=== PATIENT | male | born 1960 | race Caucasian/White ===

== ENCOUNTER 2020-08-28 01:21 | Emergency (ER) | payer MEDICAID, SELFPAY ==
[2020-08-28] VITALS (10 sets, daily range): BP systolic 119–198; BP diastolic 59–110; PULSE 65–78; RESP 14–18; TEMP 36.2–36.7; O2SAT 94–98; BMI 22.7
--- NOTE | 2020-08-28 02:33 | ED.PSYCH ---
HPI - Psych General Chief Complaint: Psychiatric Symptoms Stated Complaint: etoh/si/hi Time Seen by Provider: 08/28/20 02:25 Source: patient Mode of arrival: EMS Limitations: no limitations and other History of Present Illness HPI Narrative: patient comes to the emergency room intoxicated. Patient states he called EMS himself. Patient states it has been 4 years since he initially tried getting a right-sided hip replacement and UMass, and for various reasons his surgery keeps getting postpone. Patient states the pain is unbearable, he recently started drinking alcohol and using cocaine. Patient states he is suicidal with no plan. MD complaint: suicidal ideation and feels depressed Related Data Allergies Allergy/AdvReac Type Severity Reaction Status Date / Time lisinopril [LISINOPRIL] Allergy Unknown SWELLING Unverified 06/06/20 19:45 Review of Systems Review of Systems: Constitutional : Denies fever chills ENT/Mouth : No Hearing loss, No Ear Pain, No Nasal Congestion, No Sinus Pain, No Hoarseness, No sore throat, No Rhinorrhea, No Swallowing Difficulty Eyes: No Eye Pain, No Swelling, No Redness, No Foreign Body, No Discharge, No Vision Changes Cardiovascular : No Chest Pain, No SOB, No Dyspnea on Exertion, No Orthopnea, No Edema, No Palpitations Respiratory : No Cough, No Sputum, No Wheezing, No Smoke Exposure, No Dyspnea Gastrointestinal : No Nausea, No Vomiting, No Diarrhea, No Constipation, No abdominal Pain, No Hematochezia, No Melena Genitourinary : no irregular bleeding, No Dysuria, No Urinary Frequency, No Hematuria, No Urinary Incontinence, No Urgency, No Flank Pain, No Urinary Flow Changes, No Hesitancy Musculoskeletal: patient complaining of chronic right-sided hip pain Skin : No Skin Lesions, No rash Neuro : No Weakness, No Numbness, No Paresthesias, No Loss of Consciousness, No Dizziness, No Headache Psych : No Anxiety/Panic, No Depression, No SI/HI/AH/VH, No Social Issues, Heme/Lymph: No Bruising, No Bleeding,No Lymphadenopathy Endocrine : No Polyuria, No Polydipsia, No Temperature Intolerance PMFSH Past Medical History Medical History (Updated 08/28/20 @ 02:38 by Phoebe Stein MD) Broken hip Depression Hypertension Physical Exam Vital Signs: Vital Signs: Last Vital Signs Temp 97.1 F 08/28/20 01:52 Pulse 68 08/28/20 02:05 Resp 18 08/28/20 01:52 BP 178/91 H 08/28/20 02:05 Pulse Ox 95 08/28/20 01:52 Body Mass Index 22.7 Appearance: Alert. patient is intoxicated, talking to himself Eyes: Pupils equal, round and reactive to light. ENT: Pharynx normal. Neck: Normal inspection. Neck supple. No lymph nodes noted. No crepitus CVS: Normal heart rate and rhythm. Pulses normal. Normal S1 and S2 Respiratory: No respiratory distress. Breath sounds normal. No Wheezing. No rales Abdomen: Soft and nontender. No rigidity. No distention. good BS x4 Skin: Skin warm and dry, complaining of right-sided hip pain with flexion Extremities: No Lacerations. No Rash Neuro: patient intoxicated, does have slurry speech, cranial nerves 2-12 grossly intact MDM - Psych Restraints Face to Face Assessment: Face to Face Assessment: Current Situation: After assessment of the patient, a review of the pertinent medical record and a discussion with nursing staff, I feel the patient requires a restrain intervention. Reaction To: [] Medical Condition: [] Behavioral State: [] Continued Need: [] Discharge Plan Discharge Clinical Impression: Alcohol intoxication, Suicidal ideation
[2020-08-28] MEDS: LORazepam 1 MG TABLET 2 MG PO ×3 (02:47→08:31)
--- NOTE | 2020-08-28 02:48 | PC.NURSE ---
pt medicated with ativan to reduce his bp of 180/102
[2020-08-28 04:47] LABS: Glucose Urine UA 100 MG/DL (NEG); Leukocyte Esterase Urine NEG (NEG); Nitrite Urine NEG (NEG); Specific Gravity - Urine 1.015 (1.005-1.025); Urine Blood TRACE (NEG); Urine Ketones NEG (NEG); Urine Protein TRACE MG/DL (NEG-TRACE)
--- NOTE | 2020-08-28 04:47 | PC.NURSE ---
pt bp still elevated and medicated with ativan. pt alert and oriented x3 very talkative and pleasant with staff.
[2020-08-28 04:48] LABS: Appearance Urine CLEAR; Color Urine STRAW
[2020-08-28 04:54] LABS: RBC Urine 0-2 /HPF (0); Squamous Epithelial Cell Urine TRACE /LPF; WBC Urine 0-2 /HPF (0-4)
[2020-08-28 04:55] LABS: Hyaline Casts Urine 0-2 /LPF; Mucus Urine 1+ /LPF
[2020-08-28 05:15] LABS: Amphetamine Screen Urine Not Detected (Not Detect); Barbiturates, Urine Not Detected (Not Detect); Benzodiazepines Screen Urine Not Detected (Not Detect); Cannabinoid Screen Urine Not Detected (Not Detect); Cocaine Screen Urine POSITIVE (Not Detect); Opiate Screen Urine Not Detected (Not Detect); Phencyclidine Screen Urine Not Detected (Not Detect)
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
--- NOTE | 2020-08-28 08:29 | PC.NURSE ---
pt hypertensive, does not know all of medications. medications filled through [facility] which is not open at this time. this rn consulted with dr tan and new med orders in. pt asymptomatic at this time. remains medically cleared. plan for covid swab and meds.
[2020-08-28] MEDS: amLODIPine Besylate 5 MG TABLET PO (08:31)
--- NOTE | 2020-08-28 08:59 | PC.NURSE ---
pharmacy called and aware of need for med reconciliation
--- NOTE | 2020-08-28 09:00 | PC.NURSE ---
pt resting in bed at this time
--- NOTE | 2020-08-28 09:32 | PC.NURSE ---
bp improved dr tan aware
[2020-08-28 09:33] LABS: COVID-19 Test Negative (Negative); IDNOW Serial# 9DD0AD1C
--- NOTE | 2020-08-28 09:40 | PC.NURSE ---
[facility] at bedside.
--- NOTE | 2020-08-28 09:41 | PC.NURSE ---
pt non compliant with [facility] assessment, not willing to talk
--- NOTE | 2020-08-28 09:52 | PC.NURSE ---
iknan reattempting to speak to patient, successful thus far.
--- NOTE | 2020-08-28 10:01 | PC.NURSE ---
per n patient requesting to leave, denies si/hi. pt is drowsy from ativan.
--- NOTE | 2020-08-28 11:28 | PC.NURSE ---
plan for d,c after lunch
--- NOTE | 2020-08-28 12:22 | PC.NURSE ---
bp elevated again, states dizziness and non med compliant with bp medications for approxc 1 month.
--- NOTE | 2020-08-28 12:30 | PC.NURSE ---
mattie baldwin at bedside for evaluation after elevated bp, complaints of being dizzy.
--- NOTE | 2020-08-28 12:33 | PC.NURSE ---
plan for librium and for patient to awaken more per denny phelps.
[2020-08-28] MEDS: chlordiazePOXIDE HCl 25 MG CAPSULE 50 MG PO (12:39)
--- NOTE | 2020-08-28 13:35 | PC.NURSE ---
pt ate 100% of lunch, back to sleep
--- NOTE | 2020-08-28 16:20 | PC.NURSE ---
Patient in bed resting quiet and calm, no distress reported, CIWA assessed was 0 at 1620, BP 153/81, will continue to monitor.
== END 2020-08-28 17:15 | disposition home or self-care (01) ==
PROVIDERS: Emergency Provider Emergency Medicine
DX: F10.120 Alcohol abuse with intoxication, uncomplicated (principal); R45.851 Suicidal ideations; F32.9 Major depressive disorder, single episode, unspecified; F14.90 Cocaine use, unspecified, uncomplicated; Z20.828 Contact with and (suspected) exposure to other viral communicable diseases; I10 Essential (primary) hypertension
CPT/HCPCS: 80307; 81001; 87635; 99285

== ENCOUNTER 2020-09-06 01:18 | Emergency (ER) | payer MEDICAID, SELFPAY ==
[2020-09-06 01:28] VITALS: BP 180/78; PULSE 77; RESP 18; TEMP 36.6; O2SAT 96; BMI 64.0
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
== END 2020-09-06 03:15 ==
PROVIDERS: Emergency Provider Student in an Organized Health Care Education/Training Program
DX: S01.112A Laceration without foreign body of left eyelid and periocular area, initial encounter (principal); Y00.XXXA Assault by blunt object, initial encounter; H11.32 Conjunctival hemorrhage, left eye; Y93.9 Activity, unspecified; Y92.039 Unspecified place in apartment as the place of occurrence of the external cause; Y99.9 Unspecified external cause status
CPT/HCPCS: 12011; 99283

== ENCOUNTER 2020-12-28 16:46 | Emergency (ER) | payer MEDICAID, SELFPAY ==
[2020-12-28 17:02] VITALS: BP 146/86; PULSE 76; RESP 18; TEMP 36.6; O2SAT 95; BMI 20.7
--- NOTE | 2020-12-28 17:06 | ECG_ITS ---
Test Reason : ETOH Blood Pressure : / mmHG Vent. Rate : 075 BPM Atrial Rate : 075 BPM P-R Int : 130 ms QRS Dur : 102 ms QT Int : 452 ms P-R-T Axes : 057 033 070 degrees QTc Int : 504 ms Sinus rhythm with Premature atrial complexes Possible Left atrial enlargement RSR' or QR pattern in V1 suggests right ventricular conduction delay Nonspecific T wave abnormality Prolonged QT Abnormal ECG When compared with ECG of 01-JUN-2020 11:02, Premature atrial complexes are now Present Nonspecific T wave abnormality now evident in Inferior leads Nonspecific T wave abnormality, worse in Anterior leads QT has lengthened Referred By: Reji Sinha Electronically Signed By:ERROL HUFF
[2020-12-28 17:11] VITALS: BP 146/86; PULSE 76; RESP 18; TEMP 36.6; O2SAT 95
[2020-12-28 17:45] LABS: Amphetamine Screen Urine Not Detected (Not Detect); Barbiturates, Urine Not Detected (Not Detect); Benzodiazepines Screen Urine Not Detected (Not Detect); Cannabinoid Screen Urine Not Detected (Not Detect); Cocaine Screen Urine POSITIVE (Not Detect); Opiate Screen Urine Not Detected (Not Detect); Phencyclidine Screen Urine Not Detected (Not Detect)
[2020-12-28 18:24] LABS: MANUAL DIFF FLAG NO
--- NOTE | 2020-12-28 18:27 | PC.NURSE ---
Pt asleep at current, no signs of distress, RR even and unlabored.
[2020-12-28 18:47] LABS: Basophils Percent Auto 0.5 % (0-2); Eosinophils Absolute Auto 0.2 X10*3/uL (0.0-0.4); Hematocrit 39.8 % (42-52); Hemoglobin 13.6 g/dl (14.0-18.0); Imm Gran Abs Auto 0.01 X10*3/uL (0.00-0.03); Imm Gran Pct Auto 0.2 % (0.0-0.4); Lymphocytes Absolute Auto 1.2 X10*3/uL (1.2-4.9); Lymphocytes Percent Auto 21.7 % (20-40); Mean Corpuscular HGB Conc 34.2 g/dl (31.0-36.0); Mean Corpuscular Hemoglobin 33.7 pg (27.0-33.0); Mean Corpuscular Volume 98.5 fL (80-98); Mean Platelet Volume 8.5 fL (9.4-12.4); Monocytes Absolute Auto 0.4 X10*3/uL (0.1-1.2); Monocytes Percent Auto 6.5 % (2-11); Neutrophils Absolute Auto 3.8 X10*3/uL (2.0-8.3); Neutrophils Percent Auto 67.1 % (45-73); Platelet Count 267 X10*3/uL (160-400); Red Blood Count 4.04 X10*6/uL (4.60-5.80); White Blood Count 5.7 X10*3/uL (4.8-10.8)
[2020-12-28 19:12] LABS: Ethanol 117 mg/dL
[2020-12-28 19:15] LABS: Alanine Aminotransferase 16 U/L (0-40); Albumin Level 4.5 g/dL (3.5-5.0); Alkaline Phosphatase 67 U/L (39-117); Anion Gap 16 (12-20); Aspartate Amino Transferase 28 U/L (5-37); Bilirubin Total 0.5 mg/dL (0.0-1.0); Blood Urea Nitrogen 19 mg/dL (9-16); Carbon Dioxide 26 mmol/L (22-29); Chloride 102 mmol/L (96-108); Creatinine Clr Calc Pharmacy 46.6; Estimated Glomerular Filt Rate 48; Glucose Random 132 mg/dL (60-115); Potassium 3.3 mmol/L (3.3-5.1); Sodium 141 mmol/L (135-145); Total Protein 7.9 g/dL (6.5-8.0)
[2020-12-28 19:38] LABS: COVID-19 Test Negative (Negative); IDNOW Serial# 9DD0AD1C
--- NOTE | 2020-12-28 19:42 | PC.NURSE ---
Patient in bed seems resting, compliant with covid swab/pending result, ETOH level notified to care team, no distress reported, will continue to monitor.
[2020-12-28 20:48] VITALS: BP 115/60; PULSE 84; RESP 20; TEMP 36.1; O2SAT 96
--- NOTE | 2020-12-28 21:04 | ED_ITS ---
HPI - Psych General Chief Complaint: ETOH/Substance Use Stated Complaint: SI/HI Time Seen by Provider: 12/28/20 17:06 Source: patient Mode of arrival: ambulatory Limitations: no limitations History of Present Illness HPI Narrative: Brought in by ambulance for reported HI and agitated drank alcohol use cocaine. Upon arrival offers no complaints. States he is upset that he has to be here Denies SI. Duration: constant History of same: Yes Relieving factors: none Exacerbating factors: none Context: recent alcohol abuse Associated psychiatric symptoms: none Treatments prior to arrival: none Related Data Home Medications Medication Instructions Recorded Confirmed acetaminophen 1,000 mg PO TID 08/28/20 12/28/20 amlodipine 10 mg PO DAILY 08/28/20 12/28/20 buprenorphine-naloxone [Suboxone] 1 film SUBLINGUAL BID 08/28/20 08/28/20 clonidine HCl 0.1 mg PO BID 08/28/20 12/28/20 folic acid 1 mg PO DAILY 08/28/20 08/28/20 gabapentin 600 mg PO TID 08/28/20 12/28/20 levothyroxine 25 mcg PO DAILY 08/28/20 08/28/20 lidocaine [Lidoderm] 1 patch TOPICAL DAILY 08/28/20 08/28/20 naloxone [Narcan] 0.4 mg IM Q2M PRN 08/28/20 08/28/20 thiamine HCl (vitamin B1) 100 mg PO DAILY 08/28/20 08/28/20 Allergies Allergy/AdvReac Type Severity Reaction Status Date / Time lisinopril [LISINOPRIL] Allergy Unknown SWELLING Unverified 06/06/20 19:45 Review of Systems Review of Systems: Constitutional: No Weight loss, No Fever, No Chills, No Night Sweats, No Fatigue, No Malaise ENT/Mouth: No Hearing loss, No Ear Pain, No Nasal Congestion, No Sinus Pain, No Hoarseness, No sore throat, No Rhinorrhea, No Swallowing Difficulty Eyes: No Eye Pain, No Swelling, No Redness, No Foreign Body, No Discharge, No Vision Changes Cardiovascular: No Chest Pain, No SOB, No Dyspnea on Exertion, No Orthopnea, No Edema, No Palpitations Respiratory: No Cough, No Sputum, No Wheezing, No Smoke Exposure, No Dyspnea Gastrointestinal: No Nausea, No Vomiting, No Diarrhea, No Constipation, No abdominal Pain, No Hematochezia, No Melena Genitourinary: no irregular bleeding, No Dysuria, No Urinary Frequency, No Hematuria, No Urinary Incontinence, No Urgency, No Flank Pain, No Urinary Flow Changes, No Hesitancy Musculoskeletal: No joint pain, No Myalgias, No Joint Swelling Skin: No Skin Lesions, No rash Neuro: No Weakness, No Numbness, No Paresthesias, No Loss of Consciousness, No Dizziness, No Headache Psych: No Anxiety/Panic, No Depression, No HI/AH/VH, No Social Issues Heme/Lymph: No Bruising, No Bleeding,No Lymphadenopathy Endocrine: No Polyuria, No Polydipsia, No Temperature Intolerance Yes all other systems are reviewed and are negative [facility] Past Medical History Medical History Broken hip Depression Hypertension Social History Social History Alcohol intake: current Alcohol intake frequency: 3 or more drinks per day Alcohol type: hard liquor Smoking Status: Smoker, status unknown Smoked in Last 30 Days: Yes Use of substances other than those prescribed or required for medical reasons: Yes Substance Use Type: Crack/Cocaine Advance Directives: No Advance Directives Information Provided: No Physical Exam Vital Signs: Vital Signs: Last Vital Signs Temp 97 F 12/28/20 20:48 Pulse 84 12/28/20 20:48 Resp 20 12/28/20 20:48 BP 115/60 12/28/20 20:48 Pulse Ox 96 12/28/20 20:48 Body Mass Index 20.7 Reviewed Const: Other: Atraumatic General: cooperative, healthy appearing and intoxicated appearing; No acute distress Nutritional Appearance: average body habitus Orientation/consciousness: patient oriented x3 HENMT: Head: Yes normal to inspection Ears: hearing grossly normal bilaterally Eyes: General: appearance normal, both eyes and all related structures Visual Nuñez: normal visual nuñez by confrontation Neck: Neck: Yes normal visual inspection, No positive Brudzinski's sign, No positive Kernig's sign and No tender Thyroid: Thyroid normal Chest: Chest palpation & inspection: normal inspection of the chest Resp: Effort & Inspection: normal respiratory effort Auscultation: clear to auscultation bilaterally Cardio: Jugular venous distension: no JVD Rhythm: regular rhythm Heart sounds: S1 normal heart sound present and S2 normal heart sound present GI: Inspection: Yes normal to inspection Palpation (GI): Soft to palpation Percussion: Yes normal to percussion Auscultation: normal bowel sounds : General: Yes no CVA tenderness Back/Spine/Pelvis: Back: no CVA tenderness Skin: General skin exam: no rashes or lesions noted Neuro: General: patient oriented x3 Extrem: General: Yes normal to inspection Course Course Course Narrative: Screening labs and care team evaluation. Offers no other complaints at this time. Reevaluation(s) Reevaluation #1: Clinically sober after being observed for several hours alcohol only 117. He has been calm cooperative. Care team evaluate patient has outpatient services declined any to go to detox from here. Clear for discharge. MDM - Psych Lab Data Result diagrams: 12/28/20 18:17 12/28/20 18:17 Labs: Lab Results 12/28/20 12/28/20 12/28/20 Range/Units 17:19 18:17 18:17 WBC 5.7 (4.8-10.8) X10*3/uL RBC 4.04 L (4.60-5.80) X10*6/uL Hgb 13.6 L (14.0-18.0) g/dl Hct 39.8 L (42-52) % MCV 98.5 H (80-98) fL MCH 33.7 H (27.0-33.0) pg MCHC 34.2 (31.0-36.0) g/dl RDW 12.0 (11.0-16.0) % Plt Count 267 (160-400) X10*3/uL MPV 8.5 L (9.4-12.4) fL Immature Gran % (Auto) 0.2 (0.0-0.4) % Neut % (Auto) 67.1 (45-73) % Lymph % (Auto) 21.7 (20-40) % [place] % (Auto) 6.5 (2-11) % Eos % (Auto) 4.0 (0-4) % Baso % (Auto) 0.5 (0-2) % Lymph # (Auto) 1.2 (1.2-4.9) X10*3/uL [place] # (Auto) 0.4 (0.1-1.2) X10*3/uL Eos # (Auto) 0.2 (0.0-0.4) X10*3/uL Baso # (Auto) 0.0 (0.0-0.2) X10*3/uL Abs Immat Gran (auto) 0.01 (0.00-0.03) X10*3/uL Absolute Neuts (auto) 3.8 (2.0-8.3) X10*3/uL Absolute Nucleated RBC 0.000 (0.0-0.012) X10*3/uL Nucleated RBC % (auto) 0.0 (0.0-0.2) /100WBC Sodium 141 (135-145) mmol/L Potassium 3.3 (3.3-5.1) mmol/L Chloride 102 (96-108) mmol/L Carbon Dioxide 26 (22-29) mmol/L Anion Gap 16 (12-20) BUN 19 H (9-16) mg/dL Creatinine 1.50 H (0.5-1.4) mg/dL Estim Creat Clear Calc 46.6 Estimated GFR 48 Random Glucose 132 H (60-115) mg/dL Calcium 9.0 (8.4-10.2) mg/dL Total Bilirubin 0.5 (0.0-1.0) mg/dL AST 28 (5-37) U/L ALT 16 (0-40) U/L Alkaline Phosphatase 67 (39-117) U/L Total Protein 7.9 (6.5-8.0) g/dL Albumin 4.5 (3.5-5.0) g/dL Urine Opiates Screen Not Detected (Not Detect) Ur Barbiturates Screen Not Detected (Not Detect) Ur Phencyclidine Scrn Not Detected (Not Detect) Ur Amphetamines Screen Not Detected (Not Detect) U Benzodiazepines Scrn Not Detected (Not Detect) Urine Cocaine Screen POSITIVE H (Not Detect) U Marijuana (THC) Screen Not Detected (Not Detect) Ethyl Alcohol mg/dL COVID-19 ([facility]) (Negative) COVID-19 Clin Com 12/28/20 12/28/20 Range/Units 18:17 19:09 WBC (4.8-10.8) X10*3/uL RBC (4.60-5.80) X10*6/uL Hgb (14.0-18.0) g/dl Hct (42-52) % MCV (80-98) fL MCH (27.0-33.0) pg MCHC (31.0-36.0) g/dl RDW (11.0-16.0) % Plt Count (160-400) X10*3/uL MPV (9.4-12.4) fL Immature Gran % (Auto) (0.0-0.4) % Neut % (Auto) (45-73) % Lymph % (Auto) (20-40) % [place] % (Auto) (2-11) % Eos % (Auto) (0-4) % Baso % (Auto) (0-2) % Lymph # (Auto) (1.2-4.9) X10*3/uL [place] # (Auto) (0.1-1.2) X10*3/uL Eos # (Auto) (0.0-0.4) X10*3/uL Baso # (Auto) (0.0-0.2) X10*3/uL Abs Immat Gran (auto) (0.00-0.03) X10*3/uL Absolute Neuts (auto) (2.0-8.3) X10*3/uL Absolute Nucleated RBC (0.0-0.012) X10*3/uL Nucleated RBC % (auto) (0.0-0.2) /100WBC Sodium (135-145) mmol/L Potassium (3.3-5.1) mmol/L Chloride (96-108) mmol/L Carbon Dioxide (22-29) mmol/L Anion Gap (12-20) BUN (9-16) mg/dL Creatinine (0.5-1.4) mg/dL Estim Creat Clear Calc Estimated GFR Random Glucose (60-115) mg/dL Calcium (8.4-10.2) mg/dL Total Bilirubin (0.0-1.0) mg/dL AST (5-37) U/L ALT (0-40) U/L Alkaline Phosphatase (39-117) U/L Total Protein (6.5-8.0) g/dL Albumin (3.5-5.0) g/dL Urine Opiates Screen (Not Detect) Ur Barbiturates Screen (Not Detect) Ur Phencyclidine Scrn (Not Detect) Ur Amphetamines Screen (Not Detect) U Benzodiazepines Scrn (Not Detect) Urine Cocaine Screen (Not Detect) U Marijuana (THC) Screen (Not Detect) Ethyl Alcohol 117 mg/dL COVID-19 ([facility]) Negative (Negative) COVID-19 Clin Com See Note Discharge Plan Discharge Clinical Impression: Alcoholic intoxication Patient Disposition: Home, Self-Care Instructions: Abuse of Alcohol (ED) Additional Instructions: Please stop drinking alcohol and doing drugs please follow-up with her primary care doctor Return if any concerns or symptoms Thank you Prescriptions: No Action clonidine HCl 0.1 mg Tablet 0.1 mg PO BID RF: 0 gabapentin 600 mg Tablet 600 mg PO TID RF: 0 naloxone [Narcan] 0.4 mg/mL Solution 0.4 mg IM Q2M PRN (Reason: Opioid Overdose) RF: 0 thiamine HCl (vitamin B1) 100 mg Tablet 100 mg PO DAILY RF: 0 acetaminophen 500 mg Tablet 1,000 mg PO TID RF: 0 levothyroxine 25 mcg Tablet 25 mcg PO DAILY RF: 0 amlodipine 10 mg Tablet 10 mg PO DAILY RF: 0 lidocaine [Lidoderm] 5 % Adhesive Patch,Medicated 1 patch TOPICAL DAILY RF: 0 folic acid 1 mg Tablet 1 mg PO DAILY RF: 0 buprenorphine-naloxone [Suboxone] 4-1 mg Film 1 film SUBLINGUAL BID RF: 0 Referrals: ED Physician,Generic [Emergency Provider] - 1 week
--- NOTE | 2020-12-28 21:12 | MHC.CARE ---
CARE team support requested to complete a crisis screening for pt who was brought to ED following a wellness check after pt made a comment on the phone with his doctor that triggered her to call PD. This happened yesterday, however PD were unable to find pt at his home because pt went to [place] for the night to meet up with his girls and did cocaine, and then pt was brought to ED this afternoon. Pt endorsed vaguely directed HI on arrival and was otherwise without any behavioral health complaints. Pt's BAL was 117 around 6pm. Pt is known to be abrasive and verbally abusive during ED visits, and pt was at his baseline during this visit. Pt denied wanting to hurt himself, though continued to voice wanting to harm others in a manner that was more suggestive of generalized anger and not active homicidality. Pt asking to be discharged, and it was determined by this racebook writer that there are no immediate safety concerns at this time, as pt is not making directed threats to harm self or other. ED provider in agreement with plan to discharge.
== END 2020-12-28 21:21 | disposition home or self-care (01) ==
PROVIDERS: Nurse Practitioner Primary Care; Emergency Provider Internal Medicine
DX: F10.120 Alcohol abuse with intoxication, uncomplicated (principal); Y90.5 Blood alcohol level of 100-119 mg/100 ml; Z20.822 Contact with and (suspected) exposure to COVID-19; F14.90 Cocaine use, unspecified, uncomplicated; I10 Essential (primary) hypertension
CPT/HCPCS: 36415; 80053; 80307; 80320; 85025; 87635; 93005; 99284

== ENCOUNTER 2021-01-09 23:44 | Emergency (ER) | payer MEDICAID, SELFPAY | END 2021-01-10 01:36 | disposition left against medical advice (07) | PROVIDERS: Emergency Provider Emergency Medicine | DX: Z04.3 Encounter for examination and observation following other accident (principal) ==

== ENCOUNTER 2021-03-09 13:15 | Emergency (ER) | payer MEDICAID, SELFPAY ==
[2021-03-09 14:07] VITALS: BP 150/82; BP 181/84; PULSE 56; PULSE 76; RESP 16; TEMP 36.4; O2SAT 97; BMI 21.4
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
== END 2021-03-09 15:30 | disposition left against medical advice (07) ==
PROVIDERS: Emergency Provider Emergency Medicine
DX: S00.81XA Abrasion of other part of head, initial encounter (principal); Y04.8XXA Assault by other bodily force, initial encounter; Y93.9 Activity, unspecified; Y92.9 Unspecified place or not applicable; Y99.9 Unspecified external cause status
CPT/HCPCS: 99281; 99283

== ENCOUNTER 2021-04-23 05:19 | Emergency (ER) | payer MEDICAID, SELFPAY ==
[2021-04-23 05:31] VITALS: BP 154/87; PULSE 69; RESP 16; TEMP 36.6; O2SAT 96; BMI 21.1
== END 2021-04-23 06:05 | disposition left against medical advice (07) ==
PROVIDERS: Emergency Provider Emergency Medicine
DX: M25.519 Pain in unspecified shoulder (principal)
CPT/HCPCS: 99281; 99282

== ENCOUNTER 2021-05-14 16:56 | Emergency (ER) | payer MEDICAID, SELFPAY ==
[2021-05-14 17:01] VITALS: BP 140/80; BP 147/65; PULSE 77; PULSE 85; RESP 16; TEMP 36.4; O2SAT 98; BMI 20.7
--- NOTE | 2021-05-14 17:34 | PC.NURSE ---
patient was visualized ambulating with steady gait out of his room in the ED stating that he wanted water and did not want to be here. patient had been given water but was not satisfied and stated he was leaving. this rn, charge and pa Scarlett visualized the patient ambulating with steady gait and leaving the ED. Patient appeared to be alert and oriented, was steady on his feet and did not want to wait to see a doctor/provider.
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
== END 2021-05-14 18:01 | disposition left against medical advice (07) ==
PROVIDERS: Emergency Provider Internal Medicine
DX: R53.1 Weakness (principal); M25.562 Pain in left knee; M25.561 Pain in right knee
CPT/HCPCS: 99281; 99283

== ENCOUNTER 2021-09-06 17:11 | Emergency (ER) | payer MEDICAID, SELFPAY ==
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
[2021-09-06 17:29] VITALS: BP 115/77; BP 149/73; PULSE 64; PULSE 65; RESP 16; TEMP 37.1; O2SAT 98; BMI 21.4
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
== END 2021-09-06 19:38 | disposition home or self-care (01) ==
PROVIDERS: Emergency Provider Emergency Medicine
DX: S06.9X9A Unspecified intracranial injury with loss of consciousness of unspecified duration, initial encounter (principal); S01.01XA Laceration without foreign body of scalp, initial encounter; S89.91XA Unspecified injury of right lower leg, initial encounter; I10 Essential (primary) hypertension; Y04.2XXA Assault by strike against or bumped into by another person, initial encounter; Y93.9 Activity, unspecified; Y92.9 Unspecified place or not applicable; Y99.9 Unspecified external cause status
CPT/HCPCS: 12001; 70450; 70486; 72125; 73564; 99283; 99284

== ENCOUNTER 2021-11-27 22:22 | Emergency (ER) | payer MEDICAID, SELFPAY ==
[2021-11-27 22:28] VITALS: BP 127/70; PULSE 71; RESP 18; TEMP 36.4; O2SAT 98; BMI 20.3
[2021-11-27 22:48] LABS: Appearance Urine CLEAR; Color Urine YELLOW; Glucose Urine UA NEG (NEG); Leukocyte Esterase Urine NEG (NEG); Nitrite Urine NEG (NEG); Specific Gravity - Urine <= 1.005 (1.005-1.025); Urine Blood NEG (NEG); Urine Ketones NEG (NEG); Urine Protein NEG (NEG-TRACE)
[2021-11-27 23:03] LABS: COVID-19 Test Negative (Negative); IDNOW Serial# 55D5AD1C
[2021-11-27 23:05] LABS: Amphetamine Screen Urine Not Detected (Not Detect); Barbiturates, Urine Not Detected (Not Detect); Benzodiazepines Screen Urine Not Detected (Not Detect); Cannabinoid Screen Urine Not Detected (Not Detect); Cocaine Screen Urine POSITIVE (Not Detect); Fentanyl, urine Not Detected (Not Detect); Opiate Screen Urine Not Detected (Not Detect); Phencyclidine Screen Urine Not Detected (Not Detect)
[2021-11-27 23:27] LABS: MANUAL DIFF FLAG NO
[2021-11-27 23:28] LABS: Basophils Percent Auto 0.5 % (0-2); Eosinophils Absolute Auto 0.2 X10*3/uL (0.0-0.4); Eosinophils Percent Auto 1.9 % (0-4); Hematocrit 38.3 % (42.0-52.0); Hemoglobin 12.6 g/dl (14.0-18.0); Imm Gran Abs Auto 0.02 X10*3/uL (0.00-0.03); Imm Gran Pct Auto 0.2 % (0.0-0.4); Lymphocytes Absolute Auto 1.6 X10*3/uL (1.2-4.9); Lymphocytes Percent Auto 18.9 % (20-40); Mean Corpuscular HGB Conc 32.9 g/dl (31.0-36.0); Mean Corpuscular Hemoglobin 32.1 pg (27.0-33.0); Mean Corpuscular Volume 97.5 fL (80.0-98.0); Mean Platelet Volume 8.5 fL (9.4-12.4); Monocytes Absolute Auto 0.6 X10*3/uL (0.1-1.2); Monocytes Percent Auto 6.4 % (2-11); Neutrophils Absolute Auto 6.2 x10*3/uL (2.0-8.3); Neutrophils Percent Auto 72.1 % (45-73); Platelet Count 298 X10*3/uL (160-400); Red Blood Count 3.93 X10*6/uL (4.60-5.80); Red Cell Distribution Width 11.8 % (11.0-16.0); White Blood Count 8.5 X10*3/uL (4.8-10.8)
--- NOTE | 2021-11-27 23:28 | ED_ITS ---
HPI - Psych General Chief Complaint: Psychiatric Symptoms Stated Complaint: crisis Time Seen by Provider: 11/27/21 22:31 Source: patient Mode of arrival: ambulatory Limitations: no limitations History of Present Illness HPI Narrative: This is a 61-year-old male presenting to the emergency department via ambulance he is evaluated in the community by in, did not arrive on a Section he is coming in today with suicidal and homicidal ideation. Upon his arrival patient is agitated. He states that he is suicidal with plan to jump off a bridge and homicidal towards people around him. I was not able to obtain a great history from patient as he is agitated. Will try again after patient calms down. No medical complaints that were reported to me by a nurse or EMS. He did not report drugs, alcohol or tobacco use. MD complaint: suicidal ideation and homicidal ideation Onset (ago): day(s) (1) Duration: constant History of same: Yes Relieving factors: none Exacerbating factors: none Associated psychiatric symptoms: none Associated symptoms: denies other symptoms Treatments prior to arrival: none If self harm: admits thoughts of self harm and has plan Related Data Home Medications Medication Instructions Recorded Confirmed acetaminophen 500 mg tablet 1,000 mg PO TID 08/28/20 12/28/20 amlodipine 10 mg tablet 10 mg PO DAILY 08/28/20 12/28/20 buprenorphine 4 mg-naloxone 1 mg 1 film SUBLINGUAL BID 08/28/20 08/28/20 sublingual film (Suboxone) clonidine HCl 0.1 mg tablet 0.1 mg PO BID 08/28/20 12/28/20 folic acid 1 mg tablet 1 mg PO DAILY 08/28/20 11/27/21 gabapentin 600 mg tablet 600 mg PO TID 08/28/20 12/28/20 levothyroxine 25 mcg tablet 25 mcg PO DAILY 08/28/20 08/28/20 lidocaine 5 % topical patch 1 patch TOPICAL DAILY 08/28/20 08/28/20 (Lidoderm) naloxone 0.4 mg/mL injection 0.4 mg IM Q2M PRN 08/28/20 08/28/20 solution thiamine HCl (vitamin B1) 100 mg 100 mg PO DAILY 08/28/20 08/28/20 tablet amlodipine 10 mg tablet 1 tab PO DAILY 11/27/21 11/27/21 atorvastatin 20 mg tablet 1 tab PO DAILY 11/27/21 11/27/21 levothyroxine 25 mcg tablet 1 tab PO DAILY 11/27/21 11/27/21 Allergies Allergy/AdvReac Type Severity Reaction Status Date / Time lisinopril [LISINOPRIL] Allergy Unknown SWELLING Verified 03/09/21 14:13 Review of Systems Review of Systems: Constitutional : No Fever, No Chills ENT/Mouth : No Ear Pain, No Nasal Congestion, No sore throat Eyes: No Eye Pain, No Swelling, No Redness Cardiovascular : No Chest Pain, No SOB Respiratory : No Cough, No Sputum, No Dyspnea Gastrointestinal : No Nausea, No Vomiting, No Diarrhea, No Hematochezia, No Melena Genitourinary : No Dysuria, No Urinary Frequency, No Hematuria Musculoskeletal : No Myalgias Skin : No Skin Lesions, No rash Neuro : No Weakness, No Numbness, No Paresthesias, No Dizziness, No Headache Psych : positive Anxiety, positive Depression, positive SI/HI All other systems reviewed and are negative Yes all other systems are reviewed and are negative [facility] Past Medical History Attestation statement: The following information was validated with the patient. Source: old records reviewed and nursing notes reviewed Medical History Broken hip Depression Hypertension Social History Social History Alcohol intake: current Alcohol intake frequency: 3 or more drinks per day Alcohol type: hard liquor Substance Use Type: Crack/Cocaine Advance Directives: No Physical Exam Vital Signs: Vital Signs: Last Vital Signs Temp 97.5 F 11/27/21 22:28 Pulse 71 11/27/21 22:28 Resp 16 11/28/21 00:35 BP 127/70 11/27/21 22:28 Pulse Ox 98 11/27/21 22:28 BMI result Body Mass Index 20.3 vss Appearance: Alert.? Oriented X3.? No acute distress.? Patient agitated. Head: Normocephalic, atraumatic, no step-offs or deformities Eyes: Pupils equal, round and reactive to light.? ENT: Pharynx normal.? Neck: Normal inspection.? Neck supple.? CVS: Normal heart rate and rhythm.? Pulses normal.? Respiratory: No respiratory distress.? Breath sounds normal.? Abdomen: Soft and nontender.? Skin: Skin warm and dry.? Normal skin color.? Normal skin turgor.? Extremities: No lower extremity edema.? No calf ttp. 5/5 strength to bilateral upper and lower extremities Back: No midline tenderness, no C-spine tenderness, full range of motion, no CVA tenderness bilaterally Neuro: Oriented X 3.? No motor deficit.? No sensory deficit. CN 2-12 intact Course Reevaluation(s) Reevaluation #1: Medical restraints were ordered, Benadryl, Haldol and Ativan as patient was agitated, he was a risk to self and others around him. Patient's CBC appears to be at baseline. Patient noted to have CKD. BUN and creatinine appear to be around his baseline. Urine clean. Urine toxicology positive for cocaine. Ethanol 187. Salicylates and acetaminophen pending. Patient COVID negative. Time: 23:24 Reevaluation #2: At this time patient will be placed in physician observation to allow more time for patient to be evaluated by the behavioral health team. At time observation was started patient, cooperative no acute distress. He is sleeping after his medical restraint. Will continue to monitor. Time: 01:31 MDM - Psych MDM Narrative Medical decision making narrative: 2320 61 yo m presents with SI and HI Upon physical examination patient appears agitated. No focal neuro deficits. Lungs clear regular rate and rhythm. Abdomen soft nontender nondistended. Plan at this time is basic labs, urine. Medical Records Attestation: I reviewed the patient's medical records. Lab Data Attestation: I reviewed the patient's lab results. Result diagrams: 11/27/21 23:02 11/27/21 23:02 Labs: Lab Results 11/27/21 11/27/21 11/27/21 Range/Units 21:40 22:38 22:38 WBC (4.8-10.8) X10*3/uL RBC (4.60-5.80) X10*6/uL Hgb (14.0-18.0) g/dl Hct (42.0-52.0) % MCV (80.0-98.0) fL MCH (27.0-33.0) pg MCHC (31.0-36.0) g/dl RDW (11.0-16.0) % Plt Count (160-400) X10*3/uL MPV (9.4-12.4) fL Immature Gran % (Auto) (0.0-0.4) % Neut % (Auto) (45-73) % Lymph % (Auto) (20-40) % [place] % (Auto) (2-11) % Eos % (Auto) (0-4) % Baso % (Auto) (0-2) % Lymph # (Auto) (1.2-4.9) X10*3/uL [place] # (Auto) (0.1-1.2) X10*3/uL Eos # (Auto) (0.0-0.4) X10*3/uL Baso # (Auto) (0.0-0.2) X10*3/uL Abs Immat Gran (auto) (0.00-0.03) X10*3/uL Absolute Neuts (auto) (2.0-8.3) x10*3/uL Absolute Nucleated RBC (0.0-0.012) X10*3/uL Nucleated RBC % (auto) (0.0-0.2) /100WBC Sodium (135-145) mmol/L Potassium (3.3-5.1) mmol/L Chloride (96-108) mmol/L Carbon Dioxide (22-29) mmol/L Anion Gap (12-20) BUN (9-16) mg/dL Creatinine (0.5-1.4) mg/dL Estim Creat Clear Calc Estimated GFR Random Glucose (60-115) mg/dL Calcium (8.4-10.2) mg/dL Magnesium (1.6-2.6) mg/dL Total Bilirubin (0.0-1.0) mg/dL Direct Bilirubin (0.0-0.5) mg/dL AST (5-37) U/L ALT (0-40) U/L Alkaline Phosphatase (39-117) U/L Total Protein (6.5-8.0) g/dL Albumin (3.5-5.0) g/dL Urine Color YELLOW Urine Appearance CLEAR Urine pH 6.0 (5.0-8.0) Ur Specific [place] <= 1.005 (1.005-1.025) Urine Protein NEG (NEG-TRACE) MG/DL Urine Glucose (UA) NEG (NEG) MG/DL Urine Ketones NEG (NEG) MG/DL Urine Blood NEG (NEG) Urine Nitrite NEG (NEG) Ur Leukocyte Esterase NEG (NEG) Urine Opiates Screen Not Detected (Not Detect) Urine Fentanyl Screen Not Detected (Not Detect) Ur Barbiturates Screen Not Detected (Not Detect) Ur Phencyclidine Scrn Not Detected (Not Detect) Ur Amphetamines Screen Not Detected (Not Detect) U Benzodiazepines Scrn Not Detected (Not Detect) Urine Cocaine Screen POSITIVE H (Not Detect) U Marijuana (THC) Screen Not Detected (Not Detect) Ethyl Alcohol mg/dL COVID-19 ([facility]) Negative (Negative) COVID-19 Clin Com See Note 11/27/21 11/27/21 11/27/21 Range/Units 23:02 23:02 23:02 WBC 8.5 (4.8-10.8) X10*3/uL RBC 3.93 L (4.60-5.80) X10*6/uL Hgb 12.6 L (14.0-18.0) g/dl Hct 38.3 L (42.0-52.0) % MCV 97.5 (80.0-98.0) fL MCH 32.1 (27.0-33.0) pg MCHC 32.9 (31.0-36.0) g/dl RDW 11.8 (11.0-16.0) % Plt Count 298 (160-400) X10*3/uL MPV 8.5 L (9.4-12.4) fL Immature Gran % (Auto) 0.2 (0.0-0.4) % Neut % (Auto) 72.1 (45-73) % Lymph % (Auto) 18.9 L (20-40) % [place] % (Auto) 6.4 (2-11) % Eos % (Auto) 1.9 (0-4) % Baso % (Auto) 0.5 (0-2) % Lymph # (Auto) 1.6 (1.2-4.9) X10*3/uL [place] # (Auto) 0.6 (0.1-1.2) X10*3/uL Eos # (Auto) 0.2 (0.0-0.4) X10*3/uL Baso # (Auto) 0.0 (0.0-0.2) X10*3/uL Abs Immat Gran (auto) 0.02 (0.00-0.03) X10*3/uL Absolute Neuts (auto) 6.2 (2.0-8.3) x10*3/uL Absolute Nucleated RBC 0.000 (0.0-0.012) X10*3/uL Nucleated RBC % (auto) 0.0 (0.0-0.2) /100WBC Sodium 136 (135-145) mmol/L Potassium 3.8 (3.3-5.1) mmol/L Chloride 98 (96-108) mmol/L Carbon Dioxide 28 (22-29) mmol/L Anion Gap 14 (12-20) BUN 17 H (9-16) mg/dL Creatinine 1.71 H (0.5-1.4) mg/dL Estim Creat Clear Calc 40.8 Estimated GFR 41 Random Glucose 89 (60-115) mg/dL Calcium 9.8 D (8.4-10.2) mg/dL Magnesium 2.3 (1.6-2.6) mg/dL Total Bilirubin 0.4 (0.0-1.0) mg/dL Direct Bilirubin < 0.2 (0.0-0.5) mg/dL AST 15 D (5-37) U/L ALT 11 (0-40) U/L Alkaline Phosphatase 88 D (39-117) U/L Total Protein 8.1 H (6.5-8.0) g/dL Albumin 4.6 (3.5-5.0) g/dL Urine Color Urine Appearance Urine pH (5.0-8.0) Ur Specific [place] (1.005-1.025) Urine Protein (NEG-TRACE) MG/DL Urine Glucose (UA) (NEG) MG/DL Urine Ketones (NEG) MG/DL Urine Blood (NEG) Urine Nitrite (NEG) Ur Leukocyte Esterase (NEG) Urine Opiates Screen (Not Detect) Urine Fentanyl Screen (Not Detect) Ur Barbiturates Screen (Not Detect) Ur Phencyclidine Scrn (Not Detect) Ur Amphetamines Screen (Not Detect) U Benzodiazepines Scrn (Not Detect) Urine Cocaine Screen (Not Detect) U Marijuana (THC) Screen (Not Detect) Ethyl Alcohol 187 mg/dL COVID-19 ([facility]) (Negative) COVID-19 Clin Com Critical Care Time Critical Care Time Critical Care Time: No Discharge Plan Discharge Clinical Impression: Depression, Suicidal ideation, Acute anxiety, Homicidal ideations Patient Disposition: Still a Patient Prescriptions: No Action clonidine HCl 0.1 mg Tablet 0.1 mg PO BID 0RF gabapentin 600 mg Tablet 600 mg PO TID 0RF naloxone [Narcan] 0.4 mg/mL Solution 0.4 mg IM Q2M PRN (Reason: Opioid Overdose) 0RF thiamine HCl (vitamin B1) 100 mg Tablet 100 mg PO DAILY 0RF acetaminophen 500 mg Tablet 1,000 mg PO TID 0RF levothyroxine 25 mcg Tablet 25 mcg PO DAILY 0RF amlodipine 10 mg Tablet 10 mg PO DAILY 0RF lidocaine [Lidoderm] 5 % Adhesive Patch,Medicated 1 patch TOPICAL DAILY 0RF folic acid 1 mg Tablet 1 mg PO DAILY 0RF buprenorphine-naloxone [Suboxone] 4-1 mg Film 1 film SUBLINGUAL BID 0RF atorvastatin 20 mg tablet 1 tab PO DAILY 0RF levothyroxine 25 mcg tablet 1 tab PO DAILY 0RF amlodipine 10 mg tablet 1 tab PO DAILY 0RF
[2021-11-27 23:35] VITALS: RESP 16
[2021-11-27] MEDS: Haloperidol Lactate 5 MG/ML VIAL IM (23:35)
[2021-11-27] MEDS: LORazepam 2 MG/ML VIAL IM (23:35)
[2021-11-27] MEDS: diphenhydrAMINE HCL 50 MG/ML VIAL IM (23:35)
[2021-11-27 23:40] LABS: Ethanol 187 mg/dL
[2021-11-27 23:45] LABS: Alanine Aminotransferase 11 U/L (0-40); Albumin Level 4.6 g/dL (3.5-5.0); Alkaline Phosphatase 88 U/L (39-117); Anion Gap 14 (12-20); Aspartate Amino Transferase 15 U/L (5-37); Bilirubin Direct < 0.2 mg/dL (0.0-0.5); Bilirubin Total 0.4 mg/dL (0.0-1.0); Blood Urea Nitrogen 17 mg/dL (9-16); Calcium 9.8 mg/dL (8.4-10.2); Carbon Dioxide 28 mmol/L (22-29); Chloride 98 mmol/L (96-108); Creatinine Clr Calc Pharmacy 40.8; Estimated Glomerular Filt Rate 41; Glucose Random 89 mg/dL (60-115); Magnesium 2.3 mg/dL (1.6-2.6); Potassium 3.8 mmol/L (3.3-5.1); Sodium 136 mmol/L (135-145); Total Protein 8.1 g/dL (6.5-8.0)
[2021-11-27 23:50] VITALS: RESP 16
--- NOTE | 2021-11-28 00:01 | PC.NURSE ---
Patient severely agitated, demanding immediate discharge, slamming door, pushing exit door, slapping wall, making threatening statement to staff member, provider notified/ordered Ativan 2 mg IM, 5 mg Haldol 5mg IM, and Benadryl 50 mg IM/administered as ordered at 2335, patient compliant, pending effect, patient is on 1:1 for safety observation, will continue to monitor.
[2021-11-28 00:05] VITALS: RESP 17
[2021-11-28 00:20] VITALS: RESP 16
[2021-11-28 00:35] VITALS: RESP 16
[2021-11-28 01:38] LABS: Acetaminophen LAB < 1 mcg/mL (<30); Salicylate < 5.0 mg/dL (15-30)
--- NOTE | 2021-11-28 06:10 | PC.NURSE ---
Patient slept through the night, no distress observed/reported, effective medication restraint, behavior concerning prior restraint but appropriate post restraint, BHN referral completed/confirmed, pending evaluation in the morning, will continue to monitor.
--- NOTE | 2021-11-28 08:09 | PHA.MEDREC ---
Pharmacy Consult ? Medication Reconciliation Pharmacy has reviewed the medication reconciliation completed by Mendel.
[2021-11-28] MEDS: amLODIPine Besylate 10 MG TABLET PO (10:31)
[2021-11-28] MEDS: Nicotine 21 MG PATCH.TD24 TRANSDERMA (10:31)
[2021-11-28] MEDS: cloNIDine HCL 0.1 MG TABLET PO (10:31)
[2021-11-28] MEDS: Thiamine HCL 100 MG TABLET PO (10:31)
[2021-11-28] MEDS: Buprenorphine/Naloxone 8/2 mg FILM 1 FILM SUBLINGUAL (10:31)
[2021-11-28] MEDS: Folic Acid 1 MG TABLET PO (10:32)
[2021-11-28] MEDS: Atorvastatin Calcium 20 MG TABLET PO (10:32)
[2021-11-28] MEDS: Levothyroxine Sodium 25 MCG TABLET PO (10:32)
[2021-11-28] MEDS: Gabapentin 400 MG CAPSULE 800 MG PO (10:32)
[2021-11-28 10:39] VITALS: BP 142/78; PULSE 73
[2021-11-28] MEDS: Acamprosate Calcium 333 MG TABLET.DR 666 MG PO (10:57)
== END 2021-11-28 11:15 | disposition home or self-care (01) ==
PROVIDERS: Physician Assistant; Emergency Provider Emergency Medicine Emergency Medical Services
DX: F32.9 Major depressive disorder, single episode, unspecified (principal); F41.9 Anxiety disorder, unspecified; R45.851 Suicidal ideations; R45.850 Homicidal ideations; I12.9 Hypertensive chronic kidney disease with stage 1 through stage 4 chronic kidney disease, or unspecified chronic kidney disease; N18.9 Chronic kidney disease, unspecified; Z79.899 Other long term (current) drug therapy; Z20.822 Contact with and (suspected) exposure to COVID-19
CPT/HCPCS: 36415; 80053; 80143; 80179; 80307; 81003; 82077; 82248; 83735; 85025; 87635; 96372; 99284; 99285; J1200; J2060

== ENCOUNTER 2022-07-05 19:06 | Emergency (ER) | payer MEDICAID, SELFPAY ==
--- NOTE | ~2022-07-05 | CT_ITS ---
EXAMINATION: NONCONTRAST HEAD CT NONCONTRAST CERVICAL SPINE CT INDICATION INFORMATION: Fall. Head strike. COMPARISON: 09/06/2021 TECHNIQUE: Separate noncontrast CT examinations of the head and cervical spine were performed. Coronal and sagittal images were created for each examination at the technologist workstation. This CT examination was performed using dose optimization techniques as appropriate, variously including the following: *Automated exposure control *Adjustment of mA and/or kV according to patient size (this includes techniques or standardized protocols for targeted exams where dose is matched to indication/reason for exam; i.e. extremities or head) *Use of iterative reconstruction technique DLP: 965 mGy-cm FINDINGS: Head: There is no evidence of acute intracranial hemorrhage or territorial infarction. No abnormal mass effect or midline shift is seen. Dawson to white matter differentiation is well preserved. No extra-axial fluid collections are identified. No hydrocephalus. No significant volume loss. Patchy periventricular and deep white matter hypoattenuation is consistent with moderate small vessel ischemic changes. No acute osseous or soft tissue abnormality. The mastoid air cells and visualized portions of the paranasal sinuses are well aerated. Cervical spine: There is anatomic alignment of the vertebral bodies and posterior elements. The atlantoaxial and atlantooccipital articulations are intact. Vertebral body heights maintained. Mild loss of disc space height at C5-C6 and C6-C7. Endplate osteophytes present throughout the cervical spine. Facet arthropathy present throughout the cervical spine. No evidence of acute fracture. No prevertebral soft tissue swelling. [place] bilateral carotid bulb calcifications. Visualized portions of the lung apices are unremarkable. The thyroid gland is unremarkable. CT/CT cervical spine wo IV con IMPRESSION: No acute intracranial pathology. No cervical spine fracture or traumatic malalignment.
[2022-07-05 19:38] LABS: Appearance Urine Clear; Color Urine Yellow; Glucose Urine UA 250 mg/dL (Negative); Leukocyte Esterase Urine Negative (Negative); Nitrite Urine Negative (Negative); PH 5.5 (5.0-9.0); Specific Gravity - Urine 1.015 (1.005-1.025); Urine Blood Negative (Negative); Urine Ketones Negative (Negative); Urine Protein Trace mg/dL (Neg-Trace)
[2022-07-05 19:47] VITALS: BP 145/77; PULSE 64; RESP 17; TEMP 36.3; O2SAT 97; BMI 23.6
[2022-07-05 19:51] LABS: Amphetamine Screen Urine Not Detected (Not Detect); Barbiturates, Urine Not Detected (Not Detect); Benzodiazepines Screen Urine Not Detected (Not Detect); Cannabinoid Screen Urine Not Detected (Not Detect); Cocaine Screen Urine POSITIVE (Not Detect); Fentanyl, urine Not Detected (Not Detect); Opiate Screen Urine Not Detected (Not Detect); Phencyclidine Screen Urine Not Detected (Not Detect)
--- NOTE | 2022-07-05 19:52 | PC.NURSE ---
Patient came via ambulance to room 1 after he was C/O increase anxiety, SI no plan, increase depression. At time he is quiet in his room , cooperative.Will continue to monitor.
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
[2022-07-05 20:11] LABS: COVID-19 Test Negative (Negative)
--- OUTSIDE RECORDS SUMMARY | 2022-07-05 20:12 | XMS_ITS | Continuity of Care Document ---
:1960 Author Organization [facility] Address [address] [place] [address]- Care Team Providers Name Role Phone Brielle Eid MD Primary Care Physician [phone] [id number] Date(s): 07/08/21 - 08/13/[address] [address] Attending Physician: Aaron Zarate MD Admitting Physician: Aaron Zarate MD Referring Physician: Aaron Zarate MD Allergies, Adverse Reactions, Alerts Substance Reaction Severity Status amoxicillin Active lisinopril Active KlonoPIN Active Medications amLODIPine 2.5 mg oral tablet 5 mg, By Mouth, Daily, # 30 tablet, Refills 0, Tot. Refills 0, Maintenance, 10/23/17 12:32:02, [facility] Electronically, [id number], [facility] Start Date: 10/23/17 Stop Date: 11/22/17 Status: Orderedbuprenorphine-naloxone 4 mg-1 mg sublingual film 1 each, Sublingual, 3 times a day, # 3 film, 0 Refills, Maintenance, 12/06/17 11:44:52, Film Start Date: 12/06/17 Stop Date: 12/07/17 Status: Orderedlactobacillus acidophilus oral tablet 2 tablet, By Mouth, Daily, # 60 tablet, 0 Refills, Maintenance, 04/29/18 16:58:53 EDT Start Date: 04/29/18 Status: OrderedLexapro 10 mg oral tablet = 10 mg, By Mouth, Daily, # 30 tablet, 0 Refills, Maintenance, 10/23/17 12:31:35, Tablet Start Date: 10/23/17 Stop Date: 11/22/17 Status: OrderedNeurontin 600 mg oral tablet 1 tablet = 600 mg, By Mouth, 3 times a day, # 42 tablet, 1 Refills, Maintenance, 12/06/17 11:46:33, Tablet Start Date: 12/06/17 Stop Date: 01/03/18 Status: OrderedSuboxone 4 mg-1 mg sublingual film Sublingual, Daily, 0 Refills, Maintenance, 03/06/19 15:35:42 EDT Start Date: 03/06/19 Status: OrderedtraZODone 100 mg oral tablet 100 mg, 1, tablet, By Mouth, Daily at bedtime, # 14 tablet, Refills 1, Tot. 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 Social History Social History Type Response Smoking Status 10 or more cigarettes (1/2 p ack or more)/day in last 30 days entered on: 03/06/19 Sex
--- OUTSIDE RECORDS SUMMARY | 2022-07-05 20:12 | XMS_ITS | Continuity of Care Document ---
:1960 Author Organization [facility] Address [address] [place] [address]- Care Team Providers Name Role Phone Nathan Rosen MD Primary Care Physician Encounter [facility] Date(s): 09/17/21 - 10/23/[address] [address] Attending Physician: Nathan Rosen MD Admitting Physician: Nathan Rosen MD Referring Physician: Nathan Rosen MD Allergies, Adverse Reactions, Alerts Substance Reaction Severity Status amoxicillin Active lisinopril Active KlonoPIN Active Medications amLODIPine 2.5 mg oral tablet 5 mg, By Mouth, Daily, # 30 tablet, Refills 0, Tot. Refills 0, Maintenance, 10/23/17 12:32:02, [facility] Electronically, [id number], [facility] Start Date: 10/23/17 Stop Date: [...] 1Patient NOS x 2 to scheduled appts.-- [id number] did not keep 3 scheduled appts.-- Closed. Social History Social History Type Response Smoking Status 10 or more cigarettes (1/2 p ack or more)/day in last 30 days entered on: 03/06/19 Sex
--- OUTSIDE RECORDS SUMMARY | 2022-07-05 20:12 | XMS_ITS | Continuity of Care Document ---
:1960 Author Organization [facility] Address [address] [place] [address]- Care Team Providers Name Role Phone Brielle Eid MD Primary Care Physician Encounter [facility] Date(s): 01/08/21 - 02/13/21 [facility] [address] [address]- Attending Physician: Shalini Allen MD Admitting Physician: Shalini Allen MD Allergies, Adverse Reactions, Alerts Substance Reaction Severity Status amoxicillin Active lisinopril Active KlonoPIN Active Medications amLODIPine 2.5 mg oral tablet 5 mg, By Mouth, Daily, # 30 tablet, Refills 0, Tot. Refills 0, Maintenance, 10/23/17 12:32:02, 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 Social History Social History Type Response Smoking Status 10 or more cigarettes (1/2 p ack or more)/day in last 30 days entered on: 03/06/19 Sex
--- OUTSIDE RECORDS SUMMARY | 2022-07-05 20:12 | XMS_ITS | Continuity of Care Document ---
:1960 Author Organization [facility] Address [address] [place] [address]- Care Team Providers Name Role Phone Brielle Eid MD Primary Care Physician [phone] [id number] Date(s): 02/12/21 - 03/20/21 [facility] [address] [address] Attending Physician: Shalini Allen MD Admitting Physician: Shalini Allen MD Allergies, Adverse Reactions, Alerts Substance Reaction Severity Status amoxicillin Active lisinopril Active KlonoPIN Active Medications amLODIPine 2.5 mg oral tablet 5 mg, By Mouth, Daily, # 30 tablet, Refills 0, Tot. Refills 0, Maintenance, 10/23/17 12:32:02, [facility] Electronically, [id number], [facility] Start Date: 10/23/17 Stop Date: [...] 1Patient NOS x 2 to scheduled appts.-- [id number] did not keep 3 scheduled appts.-- Closed. Social History Social History Type Response Smoking Status 10 or more cigarettes (1/2 p ack or more)/day in last 30 days entered on: 03/06/19 Sex
--- OUTSIDE RECORDS SUMMARY | 2022-07-05 20:12 | XMS_ITS | Continuity of Care Document ---
:1960 Author Organization [facility] Address [address] [place] [address]- Care Team Providers Name Role Phone Brielle Eid MD Primary Care Physician En[facility] [id number] Date(s): 07/14/21 - 08/13/[address] [address] Attending Physician: AdmJose J maharaj Admitting Physician: Admtr, Ar8 Referring Physician: Admtr, Ar8 Allergies, Adverse Reactions, Alerts Substance Reaction Severity Status amoxicillin Active lisinopril Active KlonoPIN Active Medications amLODIPine 2.5 mg oral tablet 5 mg, By Mouth, Daily, # 30 tablet, Refills 0, Tot. Refills 0, Maintenance, 10/23/17 12:32:02, [facility] Electronically, [id number], [facility] Start Date: 10/23/17 Stop [...] 1Patient NOS x 2 to scheduled appts.-- [id number] did not keep 3 scheduled appts.-- Closed. Social History Social History Type Response Smoking Status 10 or more cigarettes (1/2 p ack or more)/day in last 30 days entered on: 03/06/19 Sex
--- OUTSIDE RECORDS SUMMARY | 2022-07-05 20:12 | XMS_ITS | Continuity of Care Document ---
:1960 Author Organization [facility] Address [address] [place] [address]- Care Team Providers Name Role Phone Brielle Eid MD Primary Care Physician Encounter [facility] Date(s): 04/10/20 - 05/16/20 [facility] [address] [address] [facility] Attending Physician: Shalini Allen MD Admitting Physician: Shalini Allen MD Referring Physician: Nathan Rosen MD Allergies, Adverse Reactions, Alerts Substance Reaction Severity Status amoxicillin Active lisinopril Active KlonoPIN Active Medications amLODIPine 2.5 mg oral tablet 5 mg, By Mouth, Daily, # 30 tablet, Refills 0, Tot. Refills 0, Maintenance, 10/23/17 12:32:02, [facility] Electronically, [id number], [facility] Start Date: 10/23/17 Stop Date: 11/22/17 [...] Date: 12/06/17 Stop Date: 01/17/18 Status: Ordered Social History Social History Type Response Smoking Status 10 or more cigarettes (1/2 p ack or more)/day in last 30 days entered on: 03/06/19 Sex
--- OUTSIDE RECORDS SUMMARY | 2022-07-05 20:12 | XMS_ITS | Continuity of Care Document ---
:1960 Author Organization [facility] Address [address] [place] [address]- Care Team Providers Name Role Phone Brielle Eid MD Primary Care Physician [phone] Encounter [facility] Date(s): 02/18/21 - 03/20/21 [facility] [address] [address]- Attending Physician: AdmJose J maharaj Admitting Physician: Admtr, Jose J Referring Physician: Admtr, Ar8 Allergies, Adverse Reactions, Alerts Substance Reaction Severity Status amoxicillin Active lisinopril Active KlonoPIN Active Medications amLODIPine 2.5 mg oral tablet 5 mg, By Mouth, Daily, # 30 tablet, Refills 0, Tot. Refills 0, Maintenance, 10/23/17 12:32:02, [facility] Electronically, [id number], [facility] 3 Start Date: 10/23/17 Stop Date: 11/22/17 [...] 1Patient NOS x 2 to scheduled appts.-- [id number] did not keep 3 scheduled appts.-- Closed. Social History Social History Type Response Smoking Status 10 or more cigarettes (1/2 p ack or more)/day in last 30 days entered on: 03/06/19 Sex
--- OUTSIDE RECORDS SUMMARY | 2022-07-05 20:12 | XMS_ITS ---
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 Active 6223914 03 unspecified, bilateral Problem Hyperlipidemia, E78.5 Active 5582 2004 unspecified Problem Major depressive F33.9 Active 663 04106 disorder, recurrent, unspecified Problem Cardiac murmur, R01.1 Active 2689 05345 unspecified Problem Hypothyroidism, E03.9 Active 4093 0008 unspecified Problem Opioid abuse, F11.10 Active 080723 1 uncomplicated Problem Renal agenesis, Q60.0 Active 2049 28647 unilateral Problem Anxiety disorder, F41.9 Active 19 4650875 unspecified Problem Unspecified cataract H26.9 Active 716679708 Problem Unspecified fracture S62.92XA Active 431715081 of left wrist and hand, initial encounter for closed fracture Problem Alcohol abuse, F10.10 Active 21749 005 uncomplicated Problem Chronic kidney N18.3 Active 79275 4002 disease, stage 3 (moderate) Problem Body mass index Z68.20 Active 4127 67490 [BMI] 20.0-20.9, adult Problem Chronic pain G89.4 Active 4109448 06 syndrome Problem Nicotine dependence, F17.210 Active 100276669 cigarettes, uncomplicated Problem Opioid dependence, F11.20 Active 7 7407654 uncomplicated Problem Insomnia, G47.00 Active 479180631 unspecified Problem Ischemia and N28.0 Active 1825989 4 infarction of kidney Problem Essential (primary) I10 Active 34988473 hypertension Problem Other nonspecific R91.8 Active 27 8369985 abnormal finding of lung field Problem Coronary I25.84 Active 451876170 atherosclerosis due to calcified coronary lesion Problem Aortic aneurysm of I71.9 Active 6 2559558 unspecified site, without rupture Problem 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 Active 77897474 ALLERGIES Substance Reaction Event Type Date Status lisinopril angioedema Drug Allergy Jun, Active amoxicillin Hives, pruritis, erythema Drug Allergy Jun, Ac tive ENCOUNTERS Encounter Location Date Diagnosis [address] May, [place], [place] [id number] [address] May, [place], [place] [id number] [address] Apr, [place], [place] [id number] [address] Apr, Encounter for screening for [facility], infectious a nd parasitic [place] [id number] diseases, unspec ified Z11.9 ; Pain in left arm M79.602 ; Contusion of tho rax, unspecified, ini tial encounter S20.20XA ; Essen tial (primary) hypertension I10 ; Nicotine dependence, ciga rettes, uncomplicated F1 7.210 ; Alcohol abuse, u ncomplicated F10.10 ; Opioid dependence, uncomplicated F1 1.20 and Chronic kidney d isease, stage 3 (moderate) N18 .[address] Apr, [place], [place] [id number] [address] Apr, Services for [place] [id number] [address] Apr, Services for [place], [place] [id number] [address] Apr, Essential (pr imary) [facility], hypertension I10 [place] [id number] [facility] Services for [address] [place] [address] Mar, Chronic p ain syndrome G89.4 [place] [id number] [address] Mar, [place], [place] [id number] [facility] for [address] [place] [address] Feb, [place] [id number] [address] Feb, Essential (pr imary) [facility], hypertension I10 [place] [id number] [address] January, [place], [place] [id number] [address] January, Essential (pr imary) [facility], hypertension I10 ; [place] [id number] Osteoarthritis o f hip, unspecified M16. 9 ; Hyperlipidemia, unspecified E78.5 ; Opioid a buse, uncomplicated F1 1.10 ; Opioid dependence, unco mplicated F11.20 ; Immuniz ation not carried out juan use of patient decision for uns pecified reason Z28.20 an d Nicotine dependence, ciga rettes, uncomplicated F1 7.[address] Dec, [place], [place] [id number] [address] 15 Oct, 2021 Encounter for screening for [facility], COVID-19 Z11 .52 ; Abnormal NM [id number] weight loss R63. 4 ; Bursitis of right shoulde r M75.51 ; Nicotine depende nce, cigarettes, unco mplicated F17.210 ; Osteoa rthritis of hip, unspecified M16.9 and Alcohol abuse, u ncomplicated F10.[address] Oct, Essential (pr imary) [facility], hypertension I10 ; [place] [id number] Hypothyroidism, unspecified E03.9 ; Chronic pain syndrome G89.4 ; Opioid a buse, uncomplicated F1 1.10 ; Hyperlipidemia, unspecified E78.5 ; Alcohol abuse, uncomplicated F1 0.10 and Nicotine depende nce, cigarettes, unco mplicated F17.[address] Aug, [place], [place] [id number] [address] Aug, [place], [place] [id number] [address] Aug, [place], [place] [id number] [address] Aug, [place], [place] [id number] [address] Aug, Cardiac murmu r, unspecified [facility], R01.1 ; Esse ntial (primary) [place] [id number] hypertension I10 ; Hypothyroidism, unspecified E03.9 ; Osteoart hritis of hip, unspecified M16. 9 and Nicotine dependence, ciga rettes, uncomplicated F1 7.[address] Aug, Opioid abuse, uncomplicated [facility], F11.10 [place] [id number] [address] Aug, [place], [place] [id number] [address] Jul, Essential (pr imary) [facility], hypertension I10 [place] [id number] [address] Jun, [place], [place] [id number] [address] Jun, Encounter for screening for [facility], infectious a nd parasitic [place] [id number] diseases, unspec ified Z11.9 ; Osteoarthritis o f hip, unspecified M16. 9 ; Opioid abuse, uncomplic ated F11.10 ; Chronic pain syn drome G89.4 ; Nicotine depende nce, cigarettes, unco mplicated F17.210 ; Essent ial (primary) hypertension I10 ; Homelessness Z59 .0 ; Alcohol abuse, uncomplic ated F10.10 and Chronic kidn ey disease, stage 3 (moderat e) N18.3 [facility] for [address] [place] [address] Jun, the [place] [id number] Outreach [address] [place] [address] May, [place] [id number] [address] May, [place], [place] [id number] Outreach [address] [place] [address] May, [place], [place] [id number] [address] 13 May, 2021 [place], [place] [id number] [address] May, Nicotine depe ndence, [facility], cigarettes, uncomplicated [place] [id number] F17.210 ; Alcoho l abuse, uncomplicated F1 0.10 ; Hypothyroidism, unspecified E03.9 and Essent ial (primary) hypertension I10 [address] Apr, [place], [place] [id number] [address] Apr, [place], [place] [id number] [address] Apr, [place], [place] [id number] [address] Mar, Nicotine depe ndence, [facility], cigarettes, uncomplicated [place] [id number] F17.[address] 15 Mar, 2021 Osteoarthriti s of hip, [facility], unspecified M16.9 ; [place] [id number] Unspecified inju ry of thorax, initial encounte r S29.9XXA ; Nicotine depende nce, cigarettes, unco mplicated F17.210 ; Major depressive disorder, recurr ent, unspecified F33. 9 ; Chronic pain syndrome G8 9.4 ; Opioid abuse, uncomplic ated F11.10 ; Alcohol abuse, u ncomplicated F10.10 ; Hyperli pidemia, unspecified E78. 5 ; Hypothyroidism, unspecified E03.9 and Essent ial (primary) hypertension I10 [address] Feb, [place], [place] [id number] [address] January, Osteoarthriti s of hip, [facility], unspecified M16.9 ; Essential [place] [id number] (primary) hypert ension I10 ; Alcohol abuse wi th intoxication, un complicated F10.120 ; Opioid abuse, uncomplicated F1 1.10 and Hypothyroidism, unspecified E03.[address] Dec, [place], [place] [id number] [address] Dec, [place], [place] [id number] [facility] for [address] [place] [address] Nov, 2020 [place], [place] [id number] [facility] for [address] [place] [address] Nov, 2020 [place] [id number] [address] Nov, [place], [place] [id number] [address] Nov, [place], [place] [id number] [address] Nov, Encounter for screening for [facility], infectious a nd parasitic [place] [id number] diseases, unspec ified Z11.9 ; Latent tuberculo sis Z22.7 ; Chronic kidney d isease, stage 3 (moderate) N18 .3 ; Hypothyroidism, unspecified E03.9 ; Osteoart hritis of hip, unspecified M16. 9 ; Essential (primary) hypert ension I10 and Coronary atheros clerosis due to calcified cor onary lesion I25.84 [facility] for [address] [place] [address] Oct, Osteoarth ritis of hip, [place] unspecified M16. 9 and [id number] Hypothyroidism, unspecified E03.9 [facility] for [address] [place] [address] Sep, Hypothyro idism, unspecified [place] E03.[id number] Sep, Latent tuberc ulosis Z22.7 ; [facility], Chronic kidn ey disease, stage [place] [id number] 3 (moderate) N18 .3 ; Hypothyroidism, unspecified E03.9 ; Osteoart hritis of hip, unspecified M16. 9 ; Essential (primary) hypert ension I10 ; Coronary atheros clerosis due to calcified cor onary lesion I25.84 ; Opioid abuse, uncomplicated F1 1.10 and High risk heterosexua l behavior Z72.[address] Sep, [place], [place] [id number] [facility] [address] [place] [address] 15 Sep, 2020 Other specifi ed counseling [facility] Z71.89 ; Ess ential (primary) [facility], hypertensi on I10 ; [place] [id number] Osteoarthritis o f hip, unspecified M16. 9 ; Hypothyroidism, unspecified E03.9 ; Hyperlip idemia, unspecified E78. 5 and Chronic kidney disease, unspecified N18.9 [facility] for [address] [place] [address] Sep, Osteoarth ritis of hip, the [facility], [place] unspecified M16. [id number] Sep, Osteoarthriti s of hip, [facility], unspecified M16.9 ; Essential [place] [id number] (primary) hypert ension I10 ; Hypothyroidism, unspecified E03.9 ; Alcohol abuse with intoxication, un complicated F10.120 and Opio id abuse, uncomplicated F1 1.[address] Aug, [place], [place] [id number] [address] Aug, Chronic kidne y disease, [facility], unspecified N18.9 ; [place] [id number] Osteoarthritis o f hip, unspecified M16. 9 ; Latent tuberculosis Z22 .7 ; Alcohol abuse with intox ication, uncomplicated F1 0.120 and High risk heterosexua l behavior Z72.[address] Aug, [place], [place] [id number] [facility] [address] [place] [address] 20 Jul, 2020 [place] [id number] [facility] [address] [place] [address] 13 Jul, 2020 Osteoarth ritis of hip, [place] unspecified M16. 9 [id number] [facility] [address] [place] [address] 13 Jul, 2020 Osteoarth ritis of hip, [place] unspecified M16. [id number] Jul, Other specifi ed counseling [facility], Z71.89 ; Chr onic kidney [place] [id number] disease, unspeci fied N18.9 ; Alcohol abuse wi th intoxication, un complicated F10.120 ; Anxiet y disorder, unspecified F41. 9 and Osteoarthritis o f hip, unspecified M16. 9 [facility] [address] [place] [address] Jun, Chronic kidne y disease, [facility] unspecified N18.9 ; Other [facility], specified counseling Z71.89 ; [place] [id number] Alcohol abuse wi th intoxication, un complicated F10.120 ; Anxiet y disorder, unspecified F41. 9 and Osteoarthritis o f hip, unspecified M16. 9 [facility] [address] [place] [address] Jun, [place] [id number] [address] Jun, [place], [place] [id number] [address] May, [place], [place] [id number] [address] May, [place], [place] [id number] [facility] [address] [place] [address] May, [place], [place] [id number] [address] May, Essential (pr imary) [facility], hypertension I10 ; Opioid [place] [id number] abuse, uncomplic ated F11.10 ; Osteoarthritis o f hip, unspecified M16. 9 ; Hypothyroidism, unspecified E03.9 and Alcoho l abuse with intoxication, un complicated F10.[address] May, [place], [place] [id number] [address] Apr, Encounter for screening for [facility], infectious a nd parasitic [place] [id number] diseases, unspec ified Z11.9 and Cellulitis o f face L03.[address] Apr, [place], [place] [id number] [address] Apr, [place], [place] [id number] [facility] for [address] [place] [address] Mar, Essential (primary) [place] hypertension I10 ; [id number] Hypothyroidism, unspecified E03.9 ; Opioid a buse, uncomplicated F1 1.10 ; Osteoarthritis o f hip, unspecified M16. 9 and Alcohol abuse with intox ication, uncomplicated F1 0.[address] Mar, Displaced fra cture of base of [facility], fifth metaca rpal bone, right [place] [id number] hand, initial en counter for open fracture S6 2.316B [facility] [address] [place] [address] Mar, [place] [id number] [address] Mar, Displaced fra cture of base of [facility], fifth metaca rpal bone, right [place] [id number] hand, initial en counter for open fracture S6 2.316B [facility] [address] [place] [address] Feb, Essential (primary) [place] hypertension I10 ; [id number] Hypothyroidism, unspecified E03.9 ; Opioid a buse, uncomplicated F1 1.10 ; Osteoarthritis o f hip, unspecified M16. 9 and Alcohol abuse with intox ication, uncomplicated F1 0.[address] Feb, Nonspecific r eaction to cell [facility], mediated imm unity measurement [place] [id number] of gamma interfe kleber antigen response without active tuberculosis R76 .12 and Encounter for ky reening for infectious and p arasitic diseases, unspec ified Z11.[address] Feb, [place], [place] [id number] [facility] [address] [place] [address] Feb, Encounter for screening for [facility] infectious a nd parasitic [facility], diseases, unspecified Z11.9 ; [place] [id number] Hypothyroidism, unspecified E03.9 ; Essentia l (primary) hypertension I10 ; Osteoarthritis o f hip, unspecified M16. 9 ; Major depressive disor maco, recurrent, unspe cified F33.9 and Contact with hypodermic needle, initial encounter W46.0XXA [facility] [address] [place] [address] Nov, Alcohol a buse with the [facility], [place] intoxication, un complicated [id number] F10.120 ; Major depressive disorder, recurr ent, unspecified F33. 9 ; Osteoarthritis o f hip, unspecified M16. 9 ; Nicotine dependence, ciga rettes, uncomplicated F1 7.210 ; Opioid abuse, uncomplic ated F11.10 ; Essential (prima ry) hypertension I10 ; Hypothyroidism, unspecified E03.9 ; Soft tis sharon disorder, unspecified M79. 9 ; Rash and other nonspecifi c skin eruption R21 ; U nderweight R63.6 and Cough R05 [facility] [address] [place] [address] Nov, the [place] [id number] [address] Oct, Opioid abuse, uncomplicated [facility], F11.10 ; Alc ohol abuse with [place] [id number] intoxication, un complicated F10.120 and Esse ntial (primary) hypert ension I10 [address] Oct, Opioid abuse, uncomplicated [facility], F11.10 ; Ess ential (primary) [place] [id number] hypertension I10 and Alcohol abuse with intox ication, uncomplicated F1 0.[address] Oct, Essential (pr imary) [facility], hypertension I10 ; Alcohol [place] [id number] abuse with intox ication, uncomplicated F1 0.120 ; Osteoarthritis o f hip, unspecified M16. 9 and Nicotine dependence, ciga rettes, uncomplicated F1 7.[address] Oct, [place], [place] [id number] [address] Oct, Opioid abuse, uncomplicated [facility], F11.10 [place] [id number] [address] Sep, Alcohol abuse with [facility], intoxication , uncomplicated NM [id number] F10.120 ; Osteoa rthritis of hip, unspecified M16.9 ; Major depressive disor maco, recurrent, unspe cified F33.9 ; Opioid abuse, un complicated F11.10 ; Hypothy roidism, unspecified E03. 9 and Essential (prima ry) hypertension I10 [facility] [address] [place] [address] Sep, [place], [place] [id number] [facility] [address] [place] [address] Sep, [place], [place] [id number] [address] Sep, Alcohol abuse with [facility], intoxication , uncomplicated [place] [id number] F10.120 ; Opioid abuse, uncomplicated F1 1.10 and Procedure and tr eatment not carried out due to patient leaving prior to being seen by health care prov ider Z53.21 [facility] [address] [place] [address] Sep, [place], [place] [id number] [facility] [address] [place] [address] Sep, [place], [place] [id number] [address] 17 Sep, 2019 Opioid abuse, uncomplicated [facility], F11.10 ; Chr onic kidney [place] [id number] disease, stage 3 (moderate) N18.3 ; Osteoart hritis of hip, unspecified M16. 9 ; Essential (primary) hypert ension I10 and Alcohol dependen ce, uncomplicated F1 0.[address] Sep, Opioid abuse, uncomplicated [facility], F11.10 ; Chr onic kidney [place] [id number] disease, stage 3 (moderate) N18.3 ; Osteoart hritis of hip, unspecified M16. 9 and Essential (prima ry) hypertension I10 [address] Sep, [place], [place] [id number] [address] Sep, [place], [place] [id number] [address] Sep, Chronic kidne y disease, [facility], unspecified N18.9 [place] [id number] [address] Sep, Opioid abuse, uncomplicated [facility], F11.10 ; Chr onic kidney [place] [id number] disease, stage 3 (moderate) N18.3 ; Essentia l (primary) hypertension I10 ; Hypothyroidism, unspecified E03.9 and Soft t issue disorder, unspec ified M79.[address] Aug, Opioid abuse, uncomplicated [facility], F11.10 ; Ost eoarthritis of [place] [id number] hip, unspecified M16.9 ; Chronic kidney d isease, stage 3 (moderate) N18 .3 ; Aortic aneurysm of unsp ecified site, without rupture I71.9 ; Coronary atheros clerosis due to calcified cor onary lesion I25.84 ; Essenti al (primary) hypertension I10 and Hypothyroidism, unspecified E03.[address] Aug, Opioid abuse, uncomplicated [facility], F11.10 [place] [id number] [address] Aug, Opioid abuse, uncomplicated [facility], F11.10 ; Ost eoarthritis of [place] [id number] hip, unspecified M16.9 ; Chronic kidney d isease, stage 3 (moderate) N18 .3 ; Aortic aneurysm of unsp ecified site, without rupture I71.9 ; Coronary atheros clerosis due to calcified cor onary lesion I25.84 and Essen tial (primary) hypertension I10 [facility] [address] [place] [address] Aug, [place] [id number] [facility] [address] [place] [address] Aug, Opioid ab use, uncomplicated [place] F11.[id number] Aug, Opioid abuse, uncomplicated [facility], F11.10 ; Ost eoarthritis [place] [id number] hip, unspecified M16.9 ; Chronic kidney d isease, stage 3 (moderate) N18 .3 ; Aortic aneurysm of unsp ecified site, without rupture I71.9 ; Coronary atheros clerosis due to calcified cor onary lesion I25.84 and Essen tial (primary) hypertension I10 [facility] [address] [place] [address] Jul, [place] [id number] [address] Jul, [place], [place] [id number] [facility] [address] [place] [address] Jul, [facility], [place] [id number] [address] Jul, Opioid abuse, uncomplicated [facility], F11.10 ; Imm unization not [place] [id number] carried out juan use of patient decision for uns pecified reason Z28.20 ; Osteoarthritis of hip, unspecif ied M16.9 ; Chronic kidney d isease, stage 3 (moderate) N18 .3 ; Aortic aneurysm of unsp ecified site, without rupture I71.9 and Coronary atheros clerosis due to calcified cor onary lesion I25.[address] Jul, Opioid abuse, uncomplicated [facility], F11.10 ; Ost eoarthritis [place] [id number] hip, unspecified M16.9 ; Chronic kidney d isease, stage 3 (moderate) N18 .3 and Other nonspecific abno rmal finding of lung field R9 1.8 [facility] [address] [place] [address] Jun, Opioid ab use, uncomplicated the [facility], [place] F11.[id number] Jun, Opioid abuse, uncomplicated [facility], F11.10 ; Ess ential (primary) [place] [id number] hypertension I10 ; Osteoarthritis o f hip, unspecified M16. 9 ; Chronic kidney disease, stage 3 (moderate) N18.3 and Chronic kidney disease, unspecified N18.[address] Jun, Opioid abuse, uncomplicated [facility], F11.10 ; Ess ential (primary) [place] [id number] hypertension I10 ; Osteoarthritis o f hip, unspecified M16. 9 and Chronic kidney disease, stage 3 (moderate) N18.[address] Jun, Opioid abuse, uncomplicated [facility], F11.10 ; Ess ential (primary) [place] [id number] hypertension I10 ; Osteoarthritis o f hip, unspecified M16. 9 and Chronic kidney disease, stage 3 (moderate) N18.3 [facility] [address] [place] [address] Jun, [facility], [place] [id number] [address] Jun, Opioid abuse, uncomplicated [facility], F11.10 ; Ost eoarthritis of [place] [id number] hip, unspecified M16.9 and Hypothyroidism, unspecified E03.[address] May, [facility], [place] [id number] [address] May, Opioid abuse, uncomplicated [facility], F11.10 ; Ost eoarthritis of [place] [id number] hip, unspecified M16.9 and Hypothyroidism, unspecified E03.[address] May, Opioid abuse, uncomplicated [facility], F11.10 ; Imm unization not [place] [id number] carried out juan use of patient decision for uns pecified reason Z28.20 ; Osteoarthritis of hip, unspecif ied M16.9 and Hypothyroidism, unspecified E03.9 [facility] [address] [place] [address] May, [facility], [place] [id number] [address] May, Alcohol abuse , uncomplicated [facility], F10.10 [place] [id number] [address] May, Essential (pr imary) [facility], hypertension I10 ; Opioid [place] [id number] abuse, uncomplic ated F11.10 ; Osteoarthritis o f hip, unspecified M16. 9 ; Hypothyroidism, unspecified E03.9 ; Alcohol abuse with intoxication, un complicated F10.120 and Nader epi dependence, ciga rettes, uncomplicated F1 7.210 [facility] [address] [place] [address] 09 May, 2019 [facility], [place] [id number] [address] May, Essential (pr imary) [facility], hypertension I10 ; Opioid MA [id number] abuse, uncomplic ated F11.10 ; Osteoarthritis o f hip, unspecified M16. 9 ; Hypothyroidism, unspecified E03.9 and Alcoho l abuse with intoxication, un complicated F10.[address] May, Essential (pr imary) [facility], hypertension I10 ; Opioid MA [id number] abuse, uncomplic ated F11.10 ; Osteoarthritis o f hip, unspecified M16. 9 ; Hypothyroidism, unspecified E03.9 and Alcoho l abuse with intoxication, un complicated F10.[address] Apr, Opioid abuse, uncomplicated [facility], F11.10 [place] [id number] [address] Apr, [place] [id number] [address] Apr, Essential (pr imary) [facility], hypertension I10 ; Opioid [place] [id number] abuse, uncomplic ated F11.10 ; Osteoarthritis o f hip, unspecified M16. 9 ; Hypothyroidism, unspecified E03.9 and Alcoho l abuse with intoxication, un complicated F10.120 [facility] [address] [place] [address] Apr, the Homeless NIMCO CONTRERAS [id number] [address] Apr, Essential (pr imary) [facility], hypertension I10 ; Opioid MA [id number] abuse, uncomplic ated F11.10 ; Osteoarthritis o f hip, unspecified M16. 9 ; Hypothyroidism, unspecified E03.9 ; Alcohol abuse with intoxication, un complicated F10.120 and Rachel r depressive disorder, recurr ent, unspecified F33. [address] Apr, Essential (pr imary) [facility], hypertension I10 ; Opioid MA [id number] abuse, uncomplic ated F11.10 ; Osteoarthritis o f hip, unspecified M16. 9 ; Hypothyroidism, unspecified E03.9 and Alcoho l abuse with intoxication, un complicated F10.[address] Mar, Essential (pr imary) [facility], hypertension I10 and Opioid MA [id number] abuse, uncomplic ated F11.10 [facility] [address] [place] [address] Mar, Essential (primary) the [facility] hypertension I10 ; Opioid [id number] abuse, uncomplic ated F11.10 ; Osteoarthritis o f hip, unspecified M16. 9 ; Hypothyroidism, unspecified E03.9 and Alcoho l abuse with intoxication, un complicated F10.[address] Mar, Essential (pr imary) [facility], hypertension I10 ; Opioid MA [id number] abuse, uncomplic ated F11.10 ; Osteoarthritis o f hip, unspecified M16. 9 and Hypothyroidism, unspecified E03.9 [facility] [address] [place] [address] Mar, the Homeless [place], NIMCO [id number] [address] Mar, Essential (pr imary) [facility], hypertension I10 ; Opioid MA [id number] abuse, uncomplic ated F11.10 ; Osteoarthritis o f hip, unspecified M16. 9 and Hypothyroidism, unspecified E03.[address] [place] [address] Feb, Opioid abuse, un complicated [facility], F11.10 [place] [id number] [address] Feb, Essential (pr imary) [facility], hypertension I10 ; Opioid MA [id number] abuse, uncomplic ated F11.10 and Osteoarthrit is of hip, unspecified M16. [address] Feb, Alcohol abuse with [facility], intoxication , uncomplicated MA [id number] F10.[address] Feb, Alcohol abuse with [facility], intoxication , uncomplicated MA [id number] F10.120 ; Essent ial (primary) hypertension I10 ; Opioid abuse, uncomplic ated F11.10 ; Osteoarthritis o f hip, unspecified M16. 9 and Major depressive disor maco, recurrent, unspe cified F33.[address] Feb, Alcohol abuse with [facility], intoxication , uncomplicated MA [id number] F10.120 [facility] [address] [place] [address] Feb, the [facility], [place] [id number] [address] Feb, Alcohol abuse with [facility], intoxication , uncomplicated MA [id number] F10.120 ; Essent ial (primary) hypertension I10 ; Opioid abuse, uncomplic ated F11.10 ; Osteoarthritis o f hip, unspecified M16. 9 and Major depressive disor maco, recurrent, unspe cified F33.[address] Feb, [facility] [place] [id number] [address] Feb, Opioid abuse, uncomplicated [facility], F11.10 [place] [id number] [address] January, Alcohol abuse with [facility], intoxication , uncomplicated MA [id number] F10.120 ; Essent ial (primary) hypertension I10 ; Opioid abuse, uncomplic ated F11.10 ; Osteoarthritis o f hip, unspecified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 Rosen, 2022-07-07 02:20:00 PM, [address] [place], [place], [id number], Referral 2014-11-21, Orthopedic Surge on: severe degenerative rt hip disease with subluxation: Nia has x-rays Leave message with Marcelle Vargas for appt needs to en roll in a plan 03/21/14 NAVARRO has HNE - call pt at his friend David ' phone with apt - [phone] NE[facility] second floor at 830 arrival bring xrays. resched due to pt in hospital for 11/21/14 Elyssa Referral 2014-12-14, Eye exam: routin e with hx uncontrolled HTN: OPTHAMOLOGIST @ [facility] please leave appt with Marcelle Huerta, wrong phone number listed. Appt. c cristina mailed to client, Raphael Villegas Referral 2014-10-29, gallstone pancri tis /dr Conley - refered for ERCP to GI apt 11/29/14, then will have to go back to Surg, [facility] New Referral 2015-11-18, 01/29/17: Low olesya k pain Judson Ocampo PA : mild Lumbar deg disease--declined PT at this time, [facility] New Referral 2017-01-25, [facility] Severe dege nerative disease rt hip please evaluate and treat: causing back and rt knee pain now Hip appt is 01/25/17 at 9:30 with Quincy marcus [phone] Back appt is 01/29/17 at 10:00 with Anders Ocampo Kn ee appt is 02/01/17 at 10:30 with Guido Horton I gave the pt the natalie t's and asked him to take the x-ray from the last year only. Ri ght hip pain 10/27/17, Juan Craigbaum Referral 2017-07-12, PFT @ [facility] 06/21 3 arrive 9:10 to register for PFT's [facility] Pulmonary Referral Dysconjugate gaze following head injury request notes 02/11/18 JF, [facility] Referral 2017-06-11, [facility] U rology [address] [phone], fax [phone] Dr Teofilo Gutierrez ntal finding on Abd CT reveals Absent Right kidney and Infarct in Left kidney 01/10/2016 Hard copy of disc requested, [facility] [place] Referral 2017-09-27, [facility] ardiology Dr Aiken [address] [place], [place] 034- [phone]: [phone] Rojas spoke to Dr Aiken in regards to this patient: ? need for ALBERT for vegetation seen on echo done at [facility]. + sytolic murmur, + joint pain, ESR: 27, + anemia but improved fr om March : 12.6/38, Creat: 1.45 but improved from 1.79 in March, Rheu factor (-), Blood cultures x 2 neg after 3 days PVC called- -not taking new paitents at this time. Record faxed to Dr Aiken for review., [facility] [place] Referral DME miko Gandhi [address] [place], [place] ph: [phone] fax [phone] Ins info with rx faxed to Oksana /EMELY 08/23/17, Durable M edical Equipment Oksanae Referral 2018-03-02, Notes faxed, giv en demographics by phone Waiting for client to come in to give ap pt. note is in your folder for you to review... 02/28/18 JF, Orthop edic Care [facility] Referral 2018-05-26, Severe R hip OA - requires THR and acetabular reconstruciton- pls eval for surgical intervention Please schedule with Dr. Nicholas, [place] [address] please send recent ortho notes from [facility] octavia and JIGAR with referral as well as imaging reports thank you. Hardy jarrell faxed-MB Referral Needs Electric Wheelchair, C colby has severe osteo in rt hip and knee. Using wheeled walker a t present but only able to go small distances. Awaiting surgery, but unsure when this will happen due to other medical conditions. 05/26-Notes and request faxed to [facility] x 2, th ey report they never got anything x 2, so referred to [facility] [employer] Referral 2018-05-26, PT1 needed to Dr Brandon Nicholas [address] [facility] [phone] @1:30 pm for 2:45 appt PT1 approved for 2 visits per month for 12 [facility] Referral B/L hip OA - severe on right side - pls schedule for wheelchair clinic to evaluate for motor ized assistive devicie Notes faxed, they [facility] with appt Status update currently on waitlist only perform these 2x month, nia will contact him with a date and time //KW 08/24/18, physical Therapy [facility] Referral 2018-09-22, [facility] wheelchair c patel. Notes and referral faxed. Referral 2018-12-01, 58 YO M with L w rist fracture following traumatic injury - initial eval [place] [facility] - pls eval for further management Appt made, adrian cagle faxed to [phone], left doron brooks regarding appt Pt attende d appt requested ov notes to be faxed to clinic 12/02/18 kw Notes g afshan to Dr Eid 12/02/18, [facility] New Referral PT1 to Fabiana Nicholas max 4 x pe r month Referral [facility], Tatiana [phone] fax [phone] [Referral] 58 yo M with HTN, previosu ly seen by [facility] for extra heart sound/FILI, now within idental finding of 4cm aneursymal dilatation of ascending aort a, triple-vessel coronary vascular calcification on CT (-) ch est. Pls eval further for optimization/management Pl s send CT chest results from 07/26/19 (performed at [facility]) with mireille noel [facility] [place] Referral 2019-11-20, [facility] [phone], (f) [phone], [facility] 4th kenisha or 58 yo M smoker with HTN, incidental finding of 4cm aneursymal di latation of ascending aorta on Ct (-) chest - pls eval and advise on management Pls send CT chest results from 07/26/19 (done a t [facility]) with referral, Vascular Service [facility] Referral 2020-10-08, TB Clinic [address] Phone; [phone] New (+) quant gold - no sx of active TB, cxr pending LTBI report form completed and faxed to [facility] a nd the TB clinic along with demo sheet, quant lab and ov note . Will follow up with TB on 03/18/20 for appt. 03/15/20 KW Left ESME to see if an appt was set up yet, awaiting call back - 03/18/20 KW Tried to call Tb clinic again to schedule appt, no answer 02/20 WK missed 1st appt, new appt scheduled by TB clinic Pt missed 2nd tb appt, new appt scheduled for 08/06/2020 at 0930 am - KW 06/13/20, [facility] Referral 2021-07-14, [facility], [address] [facility] [phone] Wheelchair Evaluation for stolen chair Referral 2021-09-23, [facility], [address] f) [phone] Stolen Wheelchair Referral [facility] Cardiology p) [phone] f) [phone] Please compare to 2017 ECHO-murmur louder and one LOC episode Referral 2023-06-08, [facility] [address] [place] [address] p) [phone] Future Test Thyroid Panel-cascade Pending Test DRUG SCREEN, CLINICAL 1, URI NE Pending Test FECAL GLOBIN BY IMMUNOCHEMIS TRY Pending Test CR Knee Bilateral 3 Views Pending Test CR Sternum Min 2 Views Pending Test QUANTIFERON(R)-TB GOLD Pending Test CHLAMYDIA DNA URINE Pending Test GC DNA URINE Pending Test TSH Pending Test GC DNA URINE Pending Test X ray : Knee, right 2 views Pending Test DRUG TOX MONITORING 9 W/CONF , URINE Pending Test ELECTROLYTE PANEL Pending Test CREATININE Pending Test ELECTROLYTE PANEL Pending Test DRUG SCREEN, CLINICAL 1, URI NE Pending Test ELECTROLYTES, RANDOM URINE Pending Test ELECTROLYTE PANEL Pending Test Ultrasound Pending Test DRUG TOX MONITORING 9 W/CONF , URINE Pending Test BASIC METABOLIC PANEL Pending Test HEPATIC FUNCTION PANEL Pending Test TSH W/REFLEX TO FT4 Pending Test DRUG TOX MONITORING 9 W/CONF , URINE Pending Test DRUG TOX MONITORING ALCOHOL ETHYL, W/CONF U Pending Test DRUG TOX MONITORING 9 W/CONF , URINE Pending Test DRUG TOX MONITORING FENTANYL , QN, URINE Pending Test DRUG TOX MONITORING TRAMADOL , QN, URINE Pending Test DRUG TOX MONITORING 9 W/CONF , URINE Pending Test DRUG TOX MONITORING FENTANYL , QN, URINE Pending Test DRUG TOX MONITORING TRAMADOL , QN, URINE Pending Test Echocardiogram Pending Test DRUG TOX MONITORING 9 W/CONF , URINE Pending Test EKG Pending Test Thyroid Panel-cascade Pending Test Comprehensive Metabolic Pane l - Life Lab Pending Test EKG VITAL SIGNS Height 70 in 2022-05-05 Weight 138 lbs 2022-05-05 BMI 19.8 kg/m2 2022-05-05 Oximetry 97 2022-05-05 Temperature 97.6 degrees Fahrenheit 2022-05-05 Respiratory Rate 14 /min 2018-03-04 Blood pressure systolic 119 2022-05-05 Blood pressure diastolic 65 2022-05-05 MEDICATIONS Medication Instructions Dosage Frequency Start End Duration Statu s Date Date gabapentin 800 orally 3 times a 1 cap(s) 8h 30 days Active mg day naproxen 375 mg orally 2 times a 1 tab(s) 12h 21 day s Active day folic acid 1 mg orally once a 1 tab 24h 30 days Ac tive day Narcan 4 mg/0.1 intranasally as directed 30 days Not-Taki mL once ng Suboxone 8 mg-2 sublingually 1 film(s) May, day(s) Active mg bid; [id number] 2021 acamprosate 333 orally 3 times a 2 tab(s) 8h 30 day (s) Active mg day Nasal Saline inhalation prn as directed Jun, Not-Taki 0.65% 2017 ng levothyroxine 25 orally once a 1 tab(s) 24h 30 day(s ) Active mcg (0.025 mg) day acetaminophen orally tid 2 tab(s) 8h 30 days Active 500 mg Nicoderm C-Q 21 transdermally 1 PATCH 24h 30 days Ac tive mg/24 hr once a day Lidoderm 5% APPLY 1 30 Active PATCH TO AFFECTED AREA. WEAR FOR 12 HOURS THEN REMOVE FOR 12 HOURS. REPEAT DAILY. Narcan 4 mg/0.1 intranasally 4 mg Mar, Not -Taki mL once 2018 ng cloNIDine 0.1 mg orally 2 times a 1 tab(s) 12h 30 da y(s) Active day Vitamin B1 100 TAKE ONE Active mg TABLET BY MOUTH EVERY DAY Lipitor 20 mg orally once a 1 tab(s) 24h 30 day(s) A ctive day traZODone 50 mg orally daily at 1 tab(s) 30 day( s) Active bdtime amLODIPine 10 mg orally once a 1 tab(s) 24h 30 days Active day PROCEDURES Procedure Date Ordered Result Body Site VENIPUNCT, ROUTINE* Oct 21, 2018 VENIPUNCT, ROUTINE* Jun 23, 2019 SPECIMEN HANDLING Sep 23, 2018 -ELECTROCARDIOGRAM, COMPLETE May 24, 2020 SPECIMEN HANDLING Oct 11, 2020 SPECIMEN HANDLING Aug 05, 2018 CLINIC VST/ENCOUNTER ALL-INCLUSIVE Jul 15, 2018 BEHAV CHNG SMOKING 3-10 MIN Jun 07, 2015 CLINIC VST/ENCOUNTER ALL-INCLUSIVE Jul 08, 2018 CLINIC VST/ENCOUNTER ALL-INCLUSIVE Apr 21, 2019 SPECIMEN HANDLING March 17, 2019 CLINIC VST/ENCOUNTER ALL-INCLUSIVE May 13, 2017 CLINIC VST/ENCOUNTER ALL-INCLUSIVE Jun 09, 2019 CLINIC VST/ENCOUNTER ALL-INCLUSIVE Apr 26, 2017 SPECIMEN HANDLING Nov 17, 2019 CLINIC VST/ENCOUNTER ALL-INCLUSIVE Sep 01, 2019 CLINIC VST/ENCOUNTER ALL-INCLUSIVE Jun 02, 2017 CLINIC VST/ENCOUNTER ALL-INCLUSIVE Sep 29, 2019 SPECIMEN HANDLING Oct 21, 2018 CLINIC VST/ENCOUNTER ALL-INCLUSIVE Jul 01, 2018 SPECIMEN HANDLING May 28, 2017 VENIPUNCT, ROUTINE* Jul 07, 2019 VENIPUNCT, ROUTINE* Sep 15, 2019 VENIPUNCT, ROUTINE* Oct 11, 2020 CLINIC VST/ENCOUNTER ALL-INCLUSIVE Sep 08, 2019 CLINIC VST/ENCOUNTER ALL-INCLUSIVE December 02, 2018 CLINIC VST/ENCOUNTER ALL-INCLUSIVE January 14, 2016 CLINIC VST/ENCOUNTER ALL-INCLUSIVE Apr 29, 2018 CLINIC VST/ENCOUNTER ALL-INCLUSIVE February 17, 2019 CLINIC VST/ENCOUNTER ALL-INCLUSIVE Jul 22, 2017 CLINIC VST/ENCOUNTER ALL-INCLUSIVE May 05, 2022 CLINIC VST/ENCOUNTER ALL-INCLUSIVE December 31, 2014 CLINIC VST/ENCOUNTER ALL-INCLUSIVE Jun 18, 2014 SPECIMEN HANDLING Oct 20, 2017 Intraoral- Complete, Includes Bitewings Aug 18, 2018 VENIPUNCT, ROUTINE* December 23, 2018 CLINIC VST/ENCOUNTER ALL-INCLUSIVE Nov 17, 2019 TOBACCO USE, SMOKING, ASSESS Oct 24, 2014 DRUG TEST PRSMV DIR OPT OBS Aug 12, 2018 CLINIC VST/ENCOUNTER ALL-INCLUSIVE Jun 23, 2019 CURRENT TOBACCO SMOKER Oct 24, 2014 CLINIC VST/ENCOUNTER ALL-INCLUSIVE Oct 28, 2018 SPECIMEN HANDLING March 03, 2019 CLINIC VST/ENCOUNTER ALL-INCLUSIVE Apr 20, 2017 CLINIC VST/ENCOUNTER ALL-INCLUSIVE March 03, 2019 CLINIC VST/ENCOUNTER ALL-INCLUSIVE Aug 05, 2017 CLINIC VST/ENCOUNTER ALL-INCLUSIVE April 16, 2017 CLINIC VST/ENCOUNTER ALL-INCLUSIVE May 25, 2017 CLINIC VST/ENCOUNTER ALL-INCLUSIVE November 19, 2017 CLINIC VST/ENCOUNTER ALL-INCLUSIVE December 24, 2017 SPECIMEN HANDLING February 09, 2018 SPECIMEN HANDLING Jul 28, 2019 CLINIC VST/ENCOUNTER ALL-INCLUSIVE Oct 31, 2018 SPECIMEN HANDLING December 24, 2017 SPECIMEN HANDLING Aug 12, 2018 SPECIMEN HANDLING January 21, 2018 CURRENT TOBACCO SMOKER February 28, 2014 CURRENT TOBACCO SMOKER Jun 07, 2015 CLINIC VST/ENCOUNTER ALL-INCLUSIVE Jul 29, 2018 CLINIC VST/ENCOUNTER ALL-INCLUSIVE Aug 21, 2014 CLINIC VST/ENCOUNTER ALL-INCLUSIVE Sep 07, 2017 CLINIC VST/ENCOUNTER ALL-INCLUSIVE Aug 27, 2017 MEASURE BLOOD OXYGEN LEVEL Jun 07, 2015 CLINIC VST/ENCOUNTER ALL-INCLUSIVE February 25, 2018 CLINIC VST/ENCOUNTER ALL-INCLUSIVE Jul 08, 2017 Hepatitis B (20 or more) Jul 01, 2018 CLINIC VST/ENCOUNTER ALL-INCLUSIVE April 07, 2019 Extraction, Erupted Tooth or Exposed Root (basic) Sep 01, 2018 SPECIMEN HANDLING Jul 01, 2018 CLINIC VST/ENCOUNTER ALL-INCLUSIVE Jun 10, 2018 CLINIC VST/ENCOUNTER ALL-INCLUSIVE Jul 26, 2020 CLINIC VST/ENCOUNTER ALL-INCLUSIVE February 27, 2015 CLINIC VST/ENCOUNTER ALL-INCLUSIVE January 14, 2018 CLINIC VST/ENCOUNTER ALL-INCLUSIVE May 23, 2019 CLINIC VST/ENCOUNTER ALL-INCLUSIVE December 16, 2018 SPECIMEN HANDLING March 10, 2019 CLINIC VST/ENCOUNTER ALL-INCLUSIVE May 13, 2018 CLINIC VST/ENCOUNTER ALL-INCLUSIVE March 20, 2020 CLINIC VST/ENCOUNTER ALL-INCLUSIVE Aug 09, 2017 CLINIC VST/ENCOUNTER ALL-INCLUSIVE Jul 30, 2017 CLINIC VST/ENCOUNTER ALL-INCLUSIVE Jun 02, 2019 CLINIC VST/ENCOUNTER ALL-INCLUSIVE Sep 06, 2017 CLINIC VST/ENCOUNTER ALL-INCLUSIVE March 01, 2014 Extraction, Erupted Tooth or Exposed Root (basic) Sep 01, 2018 CLINIC VST/ENCOUNTER ALL-INCLUSIVE Jun 16, 2018 SPECIMEN HANDLING Jul 21, 2019 CLINIC VST/ENCOUNTER ALL-INCLUSIVE Oct 20, 2019 CLINIC VST/ENCOUNTER ALL-INCLUSIVE May 24, 2020 CLINIC VST/ENCOUNTER ALL-INCLUSIVE Jun 29, 2017 CLINIC VST/ENCOUNTER ALL-INCLUSIVE Jun 04, 2017 VENIPUNCT, ROUTINE* January 20, 2019 CLINIC VST/ENCOUNTER ALL-INCLUSIVE February 14, 2021 CLINIC VST/ENCOUNTER ALL-INCLUSIVE Nov 04, 2021 CLINIC VST/ENCOUNTER ALL-INCLUSIVE 2019 DRUG TEST PRSMV DIR OPT OBS Jul 15, 2018 CLINIC VST/ENCOUNTER ALL-INCLUSIVE Jul 02, 2017 ADMIN SINGLE VACC Jul 01, 2018 VENIPUNCT, ROUTINE* Jul 02, 2014 VENIPUNCT, ROUTINE* Jun 24, 2018 SPECIMEN HANDLING May 27, 2018 CLINIC VST/ENCOUNTER ALL-INCLUSIVE Aug 19, 2017 CLINIC VST/ENCOUNTER ALL-INCLUSIVE Oct 14, 2018 CLINIC VST/ENCOUNTER ALL-INCLUSIVE Jul 09, 2017 CLINIC VST/ENCOUNTER ALL-INCLUSIVE March 31, 2019 CLINIC VST/ENCOUNTER ALL-INCLUSIVE April 12, 2017 CLINIC VST/ENCOUNTER ALL-INCLUSIVE January 13, 2019 CLINIC VST/ENCOUNTER ALL-INCLUSIVE February 24, 2019 CLINIC VST/ENCOUNTER ALL-INCLUSIVE Jun 30, 2019 SPECIMEN HANDLING Nov 04, 2018 CLINIC VST/ENCOUNTER ALL-INCLUSIVE Sep 22, 2019 CLINIC VST/ENCOUNTER ALL-INCLUSIVE Apr 24, 2016 SPECIMEN HANDLING February 03, 2019 CLINIC VST/ENCOUNTER ALL-INCLUSIVE May 28, 2017 MEASURE BLOOD OXYGEN LEVEL Oct 24, 2014 CLINIC VST/ENCOUNTER ALL-INCLUSIVE Aug 26, 2018 CLINIC VST/ENCOUNTER ALL-INCLUSIVE Oct 29, 2017 CLINIC VST/ENCOUNTER ALL-INCLUSIVE Aug 04, 2017 CLINIC VST/ENCOUNTER ALL-INCLUSIVE March 10, 2019 CLINIC VST/ENCOUNTER ALL-INCLUSIVE May 04, 2017 CLINIC VST/ENCOUNTER ALL-INCLUSIVE April 05, 2017 CLINIC VST/ENCOUNTER ALL-INCLUSIVE May 05, 2019 SPECIMEN HANDLING Sep 08, 2019 CLINIC VST/ENCOUNTER ALL-INCLUSIVE May 12, 2019 CLINIC VST/ENCOUNTER ALL-INCLUSIVE January 07, 2018 CLINIC VST/ENCOUNTER ALL-INCLUSIVE Aug 20, 2017 CLINIC VST/ENCOUNTER ALL-INCLUSIVE May 18, 2017 CLINIC VST/ENCOUNTER ALL-INCLUSIVE March 08, 2020 SPECIMEN HANDLING Oct 28, 2018 CLINIC VST/ENCOUNTER ALL-INCLUSIVE Oct 08, 2017 SPECIMEN HANDLING Sep 16, 2018 CLINIC VST/ENCOUNTER ALL-INCLUSIVE April 16, 2014 VENIPUNCT, ROUTINE* Nov 03, 2019 CLINIC VST/ENCOUNTER ALL-INCLUSIVE December 03, 2014 SPECIMEN HANDLING February 03, 2022 CLINIC VST/ENCOUNTER ALL-INCLUSIVE Apr 22, 2018 VENIPUNCT, ROUTINE* May 28, 2017 CLINIC VST/ENCOUNTER ALL-INCLUSIVE Aug 05, 2018 CLINIC VST/ENCOUNTER ALL-INCLUSIVE Jul 12, 2017 CLINIC VST/ENCOUNTER ALL-INCLUSIVE April 15, 2018 SPECIMEN HANDLING January 20, 2019 SPECIMEN HANDLING May 12, 2019 SPECIMEN HANDLING 2019 CLINIC VST/ENCOUNTER ALL-INCLUSIVE February 03, 2022 CASE PRSATION DTL&EXT TX PLANNING Sep 01, 2018 CLINIC VST/ENCOUNTER ALL-INCLUSIVE Jun 17, 2018 CLINIC VST/ENCOUNTER ALL-INCLUSIVE January 20, 2019 CLINIC VST/ENCOUNTER ALL-INCLUSIVE April 14, 2019 CLINIC VST/ENCOUNTER ALL-INCLUSIVE April 19, 2017 SPECIMEN HANDLING Jul 07, 2019 BLOOD GLUCOSE/FINGER STICK Aug 09, 2017 CLINIC VST/ENCOUNTER ALL-INCLUSIVE November 25, 2018 SPECIMEN HANDLING Oct 14, 2018 CLINIC VST/ENCOUNTER ALL-INCLUSIVE February 10, 2019 CLINIC VST/ENCOUNTER ALL-INCLUSIVE Apr 23, 2017 SPECIMEN HANDLING Sep 15, 2019 VENIPUNCT, ROUTINE* April 15, 2018 CLINIC VST/ENCOUNTER ALL-INCLUSIVE Jul 22, 2018 CLINIC VST/ENCOUNTER ALL-INCLUSIVE Jun 01, 2017 SPECIMEN HANDLING February 24, 2019 CLINIC VST/ENCOUNTER ALL-INCLUSIVE Aug 25, 2019 CLINIC VST/ENCOUNTER ALL-INCLUSIVE April 01, 2018 VENIPUNCT, ROUTINE* February 03, 2022 SPECIMEN HANDLING Jun 23, 2019 CLINIC VST/ENCOUNTER ALL-INCLUSIVE Oct 25, 2017 CLINIC VST/ENCOUNTER ALL-INCLUSIVE Oct 20, 2017 CLINIC VST/ENCOUNTER ALL-INCLUSIVE Jul 16, 2014 CLINIC VST/ENCOUNTER ALL-INCLUSIVE January 13, 2016 CLINIC VST/ENCOUNTER ALL-INCLUSIVE Sep 30, 2018 CLINIC VST/ENCOUNTER ALL-INCLUSIVE May 26, 2019 SPECIMEN HANDLING Nov 03, 2019 MEASURE BLOOD OXYGEN LEVEL Aug 21, 2015 SPECIMEN HANDLING December 23, 2018 CLINIC VST/ENCOUNTER ALL-INCLUSIVE Oct 21, 2018 CLINIC VST/ENCOUNTER ALL-INCLUSIVE Jul 07, 2019 SPECIMEN HANDLING Apr 22, 2018 CLINIC VST/ENCOUNTER ALL-INCLUSIVE Sep 02, 2018 CLINIC VST/ENCOUNTER ALL-INCLUSIVE Apr 28, 2019 CLINIC VST/ENCOUNTER ALL-INCLUSIVE Apr 27, 2017 CURRENT TOBACCO SMOKER Aug 21, 2015 VENIPUNCT, ROUTINE* May 10, 2015 ELECTROCARDIOGRAM, TRACING February 25, 2018 CLINIC VST/ENCOUNTER ALL-INCLUSIVE Sep 23, 2018 CLINIC VST/ENCOUNTER ALL-INCLUSIVE Sep 15, 2019 CLINIC VST/ENCOUNTER ALL-INCLUSIVE December 16, 2017 CLINIC VST/ENCOUNTER ALL-INCLUSIVE November 26, 2014 CLINIC VST/ENCOUNTER ALL-INCLUSIVE November 29, 2020 SPECIMEN HANDLING Jun 17, 2018 CLINIC VST/ENCOUNTER ALL-INCLUSIVE May 20, 2017 CLINIC VST/ENCOUNTER ALL-INCLUSIVE Oct 06, 2019 CLINIC VST/ENCOUNTER ALL-INCLUSIVE March 08, 2020 CLINIC VST/ENCOUNTER ALL-INCLUSIVE Jun 08, 2017 SPECIMEN HANDLING May 23, 2019 SPECIMEN HANDLING November 25, 2018 CLINIC VST/ENCOUNTER ALL-INCLUSIVE Nov 03, 2019 SPECIMEN HANDLING February 10, 2019 SPECIMEN HANDLING Oct 07, 2018 SPECIMEN HANDLING April 15, 2018 CLINIC VST/ENCOUNTER ALL-INCLUSIVE Oct 28, 2015 CLINIC VST/ENCOUNTER ALL-INCLUSIVE Jun 24, 2018 CLINIC VST/ENCOUNTER ALL-INCLUSIVE April 01, 2017 CLINIC VST/ENCOUNTER ALL-INCLUSIVE Oct 11, 2020 CLINIC VST/ENCOUNTER ALL-INCLUSIVE Nov 04, 2018 CLINIC VST/ENCOUNTER ALL-INCLUSIVE Oct 26, 2017 PNEUMOCOCCAL VACC, PPSV23 February 28, 2014 CLINIC VST/ENCOUNTER ALL-INCLUSIVE Jul 14, 2019 CLINIC VST/ENCOUNTER ALL-INCLUSIVE May 12, 2019 CLINIC VST/ENCOUNTER ALL-INCLUSIVE May 10, 2017 CLINIC VST/ENCOUNTER ALL-INCLUSIVE February 03, 2019 CLINIC VST/ENCOUNTER ALL-INCLUSIVE December 23, 2018 SPECIMEN HANDLING Sep 30, 2018 CLINIC VST/ENCOUNTER ALL-INCLUSIVE March 24, 2019 CLINIC VST/ENCOUNTER ALL-INCLUSIVE January 06, 2016 CLINIC VST/ENCOUNTER ALL-INCLUSIVE January 21, 2018 CLINIC VST/ENCOUNTER ALL-INCLUSIVE January 06, 2019 SPECIMEN HANDLING Jun 02, 2019 CLINIC VST/ENCOUNTER ALL-INCLUSIVE Aug 30, 2020 SPECIMEN HANDLING February 20, 2019 CLINIC VST/ENCOUNTER ALL-INCLUSIVE March 17, 2019 CLINIC VST/ENCOUNTER ALL-INCLUSIVE Aug 03, 2017 CLINIC VST/ENCOUNTER ALL-INCLUSIVE Sep 16, 2018 SPECIMEN HANDLING Aug 19, 2018 CLINIC VST/ENCOUNTER ALL-INCLUSIVE Jun 21, 2017 CLINIC VST/ENCOUNTER ALL-INCLUSIVE Jun 16, 2019 CLINIC VST/ENCOUNTER ALL-INCLUSIVE Jul 01, 2021 Comprehensive Oral Evaluation, New or Established Aug 18, 2018 CLINIC VST/ENCOUNTER ALL-INCLUSIVE February 21, 2018 SPECIMEN HANDLING Sep 03, 2017 CLINIC VST/ENCOUNTER ALL-INCLUSIVE Sep 27, 2017 Extraction, Erupted Tooth or Exposed Root (basic) Sep 01, 2018 CLINIC VST/ENCOUNTER ALL-INCLUSIVE April 03, 2021 SPECIMEN HANDLING May 10, 2015 CLINIC VST/ENCOUNTER ALL-INCLUSIVE Jun 14, 2017 CLINIC VST/ENCOUNTER ALL-INCLUSIVE Jul 21, 2019 SPECIMEN HANDLING Sep 02, 2018 CLINIC VST/ENCOUNTER ALL-INCLUSIVE Aug 19, 2018 CLINIC VST/ENCOUNTER ALL-INCLUSIVE Jun 28, 2020 CLINIC VST/ENCOUNTER ALL-INCLUSIVE Jun 03, 2018 CLINIC VST/ENCOUNTER ALL-INCLUSIVE February 20, 2019 CLINIC VST/ENCOUNTER ALL-INCLUSIVE November 28, 2018 VENIPUNCT, ROUTINE* November 26, 2014 CLINIC VST/ENCOUNTER ALL-INCLUSIVE Jul 23, 2017 CLINIC VST/ENCOUNTER ALL-INCLUSIVE Aug 12, 2018 CASE PRSATION DTL&EXT TX PLANNING Aug 18, 2018 CLINIC VST/ENCOUNTER ALL-INCLUSIVE Sep 17, 2017 CLINIC VST/ENCOUNTER ALL-INCLUSIVE March 04, 2018 SPECIMEN HANDLING January 27, 2019 SPECIMEN HANDLING Jul 14, 2019 CLINIC VST/ENCOUNTER ALL-INCLUSIVE April 03, 2015 CLINIC VST/ENCOUNTER ALL-INCLUSIVE Jun 22, 2017 CLINIC VST/ENCOUNTER ALL-INCLUSIVE Sep 02, 2021 CLINIC VST/ENCOUNTER ALL-INCLUSIVE Aug 16, 2017 CLINIC VST/ENCOUNTER ALL-INCLUSIVE May 27, 2018 CLINIC VST/ENCOUNTER ALL-INCLUSIVE March 15, 2020 CLINIC VST/ENCOUNTER ALL-INCLUSIVE May 06, 2018 CLINIC VST/ENCOUNTER ALL-INCLUSIVE Apr 23, 2016 TOBACCO USE, SMOKING, ASSESS Aug 21, 2015 CLINIC VST/ENCOUNTER ALL-INCLUSIVE January 21, 2017 CLINIC VST/ENCOUNTER ALL-INCLUSIVE Aug 21, 2015 VENIPUNCT, ROUTINE* Oct 24, 2014 VENIPUNCT, ROUTINE* Oct 28, 2018 BEHAV CHNG SMOKING 3-10 MIN February 28, 2014 CLINIC VST/ENCOUNTER ALL-INCLUSIVE February 18, 2018 CLINIC VST/ENCOUNTER ALL-INCLUSIVE Oct 24, 2014 SPECIMEN HANDLING Jun 24, 2018 CLINIC VST/ENCOUNTER ALL-INCLUSIVE February 28, 2014 CLINIC VST/ENCOUNTER ALL-INCLUSIVE Sep 03, 2017 CLINIC VST/ENCOUNTER ALL-INCLUSIVE Jun 07, 2015 Hepatitis A Jun 24, 2018 ADMIN SINGLE VACC Jun 24, 2018 CLINIC VST/ENCOUNTER ALL-INCLUSIVE March 10, 2019 TOBACCO USE, SMOKING, ASSESS February 28, 2014 CLINIC VST/ENCOUNTER ALL-INCLUSIVE Jul 28, 2019 CLINIC VST/ENCOUNTER ALL-INCLUSIVE Oct 07, 2018 SPECIMEN HANDLING February 18, 2018 CLINIC VST/ENCOUNTER ALL-INCLUSIVE January 27, 2019 CLINIC VST/ENCOUNTER ALL-INCLUSIVE May 10, 2020 CLINIC VST/ENCOUNTER ALL-INCLUSIVE May 20, 2018 TOBACCO USE, SMOKING, ASSESS Jun 07, 2015 RESULTS Name Result Date Reference Range LIPID PANEL, NONFASTING W/O 2022-02-03 TRIGLYCERIDES CHOLESTEROL, TOTAL 202 <200 HDL CHOLESTEROL 35 > OR = 40 CHOL/HDLC RATIO 5.8 <5.0 NON HDL CHOLESTEROL 167 <130 COMPREHENSIVE METABOLIC PANEL-[facility] 2022-02-03 GLUCOSE 89 65-99 UREA NITROGEN (BUN) 26 7-25 CREATININE 2.12 0.70-1.25 eGFR NON-AFR. [place] 32 > OR = 60 eGFR 38 > OR = 60 BUN/CREATININE RATIO 12 6-22 SODIUM 134 135-146 POTASSIUM 3.7 3.5-5.3 CHLORIDE 98 98-110 CARBON DIOXIDE 23 20-32 CALCIUM 9.0 8.6-10.3 PROTEIN, TOTAL 7.4 6.1-8.1 ALBUMIN 4.3 3.6-5.1 GLOBULIN 3.1 1.9-3.7 ALBUMIN/GLOBULIN RATIO 1.4 1.0-2.5 BILIRUBIN, TOTAL 0.4 0.2-1.2 ALKALINE PHOSPHATASE 55 35-144 AST 15 10-35 ALT 10 9-46 DRUG TOX MONITORING 1, W/CONF, ORAL 2022-02-03 FLUID Amphetamines NEGATIVE <10 Barbiturates NEGATIVE <10 Benzodiazepines NEGATIVE <0.50 Buprenorphine NEGATIVE <0.10 Cocaine POSITIVE <5.0 Benzoylecgonine >250.0 <5.0 Cocaine 125.6 <5.0 Fentanyl POSITIVE <0.10 Fentanyl 1.38 <0.10 Heroin Metabolite POSITIVE <1.0 Heroin Metabolite 2.1 <1.0 Marijuana NEGATIVE <2.5 MDMA NEGATIVE <10 Meprobamate NEGATIVE <2.5 Methadone NEGATIVE <5.0 Nicotine Metabolite POSITIVE <5.0 Cotinine 208.7 <5.0 Opiates POSITIVE <2.5 Codeine Negative <2.5 Dihydrocodeine Negative <2.5 Hydrocodone Negative <2.5 Hydromorphone Negative <2.5 Morphine 5.8 <2.5 Norhydrocodone Negative <2.5 Noroxycodone Negative <2.5 Oxycodone Negative <2.5 Oxymorphone Negative <2.5 Phencyclidine NEGATIVE <10 Tapentadol NEGATIVE <5.0 Tramadol NEGATIVE <5.0 Zolpidem NEGATIVE <5.0 HIV 1/2 ANTIGEN/ANTIBODY,FOURTH 2021-11-04 GENERATION W/RFL HIV AG/AB, 4TH GEN NON-REACTIVE NON-REACTIVE RPR (DX) W/REFL TITER AND 2021-11-04 CONFIRMATORY TESTING RPR (DX) W/REFL TITER AND NON-REACTIVE NON-RE ACTIVE CONFIRMATORY TESTING HEPATITIS C AB W/REFL TO HCV RNA, 2021-11-04 QN, PCR HEPATITIS C ANTIBODY NON-REACTIVE NON-REACTIV E INDEX 0.02 <1.00 TSH W/REFLEX TO FT4 2021-11-04 TSH W/REFLEX TO FT4 2.68 0.40-4.50 DRUG TOX MONITORING 1, W/CONF, ORAL 2021-07-01 FLUID Amphetamines NEGATIVE <10 Barbiturates NEGATIVE <10 Benzodiazepines NEGATIVE <0.50 Buprenorphine <0.10 Buprenorphine <0.10 Naloxone NEGATIVE <0.25 Norbuprenorphine NEGATIVE <0.50 Cocaine POSITIVE <5.0 Benzoylecgonine >250.0 <5.0 Cocaine 84.5 <5.0 Fentanyl POSITIVE <0.10 Fentanyl 0.21 <0.10 Heroin Metabolite NEGATIVE <1.0 Marijuana NEGATIVE <2.5 MDMA NEGATIVE <10 Meprobamate NEGATIVE <2.5 Methadone NEGATIVE <5.0 Nicotine Metabolite POSITIVE <5.0 Cotinine 230.0 <5.0 Opiates NEGATIVE <2.5 Phencyclidine NEGATIVE <10 Tapentadol NEGATIVE <5.0 Tramadol NEGATIVE <5.0 Zolpidem NEGATIVE <5.0 BASIC METABOLIC PANEL 2021-02-14 GLUCOSE 86 65-139 UREA NITROGEN (BUN) 19 7-25 CREATININE 1.65 0.70-1.25 eGFR NON-AFR. [place] 44 > OR = 60 eGFR 51 > OR = 60 BUN/CREATININE RATIO 12 6-22 SODIUM 133 135-146 POTASSIUM 3.7 3.5-5.3 CHLORIDE 99 98-110 CARBON DIOXIDE 24 20-32 CALCIUM 9.5 8.6-10.3 LIPID PANEL 2021-02-14 TRIGLYCERIDES 233 <150 CHOLESTEROL, TOTAL 224 <200 HDL CHOLESTEROL 40 > OR = 40 LDL-CHOLESTEROL 146 CHOL/HDLC RATIO 5.6 <5.0 NON HDL CHOLESTEROL 184 <130 TSH 2021-02-14 TSH 2.00 0.40-4.50 DRUG TOX MONITORING 9 W/CONF, URINE 2020-11-29 Amphetamines NEGATIVE <500 MDMA/MDA NEGATIVE <500 Barbiturates NEGATIVE <300 Benzodiazepines NEGATIVE <100 Marijuana Metabolite 20 NEGATIVE <20 Cocaine Metabolite POSITIVE <150 Benzoylecgonine 1865 <100 Methadone Metabolite NEGATIVE <100 Opiates NEGATIVE <100 Oxycodone NEGATIVE <100 Buprenorphine POSITIVE <5 Buprenorphine 132 <5 Norbuprenorphine 138 <5 Heroin Metabolite NEGATIVE <10 Phencyclidine NEGATIVE <25 COMMENT DRUG TOX MONITORING ALCOHOL ETHYL, 2020-11-29 W/CONF U Alcohol, Ethyl POSITIVE <20 Alcohol, Ethyl 65 <20 COMMENT QUANTIFERON(R)-TB GOLD PLUS, 1 TUBE 2021-02-14 QUANTIFERON(R)-TB GOLD PLUS, 1 TUBE NEGATIVE NEGATIVE NIL 0.02 MITOGEN-NIL >10.00 TB1-NIL 0.26 TB2-NIL 0.17 HIV 1/2 ANTIGEN/ANTIBODY,FOURTH 2020-10-11 GENERATION W/RFL HIV AG/AB, 4TH GEN NON-REACTIVE NON-REACTIVE LIPID PANEL 2020-10-11 TRIGLYCERIDES 261 <150 CHOLESTEROL, TOTAL 321 <200 HDL CHOLESTEROL 58 > OR = 40 LDL-CHOLESTEROL 216 CHOL/HDLC RATIO 5.5 <5.0 NON HDL CHOLESTEROL 263 <130 COMPREHENSIVE METABOLIC PANEL-[facility] 2020-10-11 GLUCOSE 106 65-99 UREA NITROGEN (BUN) 16 7-25 CREATININE 2.05 0.70-1.25 eGFR NON-AFR. [place] 34 > OR = 60 eGFR 40 > OR = 60 BUN/CREATININE RATIO 8 6-22 SODIUM 134 135-146 POTASSIUM 4.1 3.5-5.3 CHLORIDE 99 98-110 CARBON DIOXIDE 23 20-32 CALCIUM 9.4 8.6-10.3 PROTEIN, TOTAL 8.3 6.1-8.1 ALBUMIN 4.7 3.6-5.1 GLOBULIN 3.6 1.9-3.7 ALBUMIN/GLOBULIN RATIO 1.3 1.0-2.5 BILIRUBIN, TOTAL 0.7 0.2-1.2 ALKALINE PHOSPHATASE 75 35-144 AST 27 10-35 ALT 18 9-46 RPR (DX) W/REFL TITER AND 2020-10-11 CONFIRMATORY TESTING RPR (DX) W/REFL TITER AND NON-REACTIVE NON-RE ACTIVE CONFIRMATORY TESTING HEPATITIS B SURFACE ANTIGEN W/REFL 2020-10-11 CONFIRM HEPATITIS B SURFACE ANTIGEN NON-REACTIVE NON- REACTIVE HEPATITIS C AB W/REFL TO HCV RNA, 2020-10-11 QN, PCR HEPATITIS C ANTIBODY NON-REACTIVE NON-REACTIV E SIGNAL TO CUT-OFF 0.03 <1.00 TSH 2020-10-11 TSH 12.79 0.40-4.50 DRUG TOX MONITORING 9 W/CONF, URINE 2020-10-11 Amphetamines NEGATIVE <500 MDMA/MDA NEGATIVE <500 Barbiturates NEGATIVE <300 Benzodiazepines NEGATIVE <100 Marijuana Metabolite 20 NEGATIVE <20 Cocaine Metabolite POSITIVE <150 Benzoylecgonine >76443 <100 Methadone Metabolite NEGATIVE <100 Opiates NEGATIVE <100 Oxycodone NEGATIVE <100 Buprenorphine POSITIVE <5 Buprenorphine 196 <5 Norbuprenorphine 122 <5 Heroin Metabolite NEGATIVE <10 Phencyclidine NEGATIVE <25 COMMENT HIV 1/2 ANTIGEN/ANTIBODY,FOURTH 2020-08-30 GENERATION W/RFL HIV AG/AB, 4TH GEN NON-REACTIVE NON-REACTIVE COMPREHENSIVE METABOLIC PANEL-[facility] 2020-08-30 GLUCOSE 96 65-99 UREA NITROGEN (BUN) 35 7-25 CREATININE 2.46 0.70-1.25 eGFR NON-AFR. [place] 27 > OR = 60 eGFR 32 > OR = 60 BUN/CREATININE RATIO 14 6-22 SODIUM 135 135-146 POTASSIUM 4.3 3.5-5.3 CHLORIDE 99 98-110 CARBON DIOXIDE 23 20-32 CALCIUM 9.6 8.6-10.3 PROTEIN, TOTAL 7.1 6.1-8.1 ALBUMIN 4.2 3.6-5.1 GLOBULIN 2.9 1.9-3.7 ALBUMIN/GLOBULIN RATIO 1.4 1.0-2.5 BILIRUBIN, TOTAL 0.6 0.2-1.2 ALKALINE PHOSPHATASE 117 35-144 AST 165 10-35 ALT 49 9-46 RPR (DX) W/REFL TITER AND 2020-08-30 CONFIRMATORY TESTING RPR (DX) W/REFL TITER AND NON-REACTIVE NON-RE ACTIVE CONFIRMATORY TESTING HEPATITIS B SURFACE ANTIGEN W/REFL 2020-08-30 CONFIRM HEPATITIS B SURFACE ANTIGEN NON-REACTIVE NON- REACTIVE HEPATITIS C AB W/REFL TO HCV RNA, 2020-08-30 QN, PCR HEPATITIS C ANTIBODY NON-REACTIVE NON-REACTIV E SIGNAL TO CUT-OFF 0.03 <1.00 DRUG TOX MONITORING 9 W/CONF, URINE 2020-08-30 Amphetamines NEGATIVE <500 MDMA/MDA NEGATIVE <500 Barbiturates NEGATIVE <300 Benzodiazepines POSITIVE <100 Alphahydroxyalprazolam NEGATIVE <25 Hydroxyethylflurazepam NEGATIVE <50 Lorazepam 1253 <50 Nordiazepam NEGATIVE <50 Oxazepam NEGATIVE <50 Temazepam NEGATIVE <50 Alphahydroxytriazolam NEGATIVE <50 Aminoclonazepam NEGATIVE <25 Marijuana Metabolite 20 NEGATIVE CONFIRMED <20 Marijuana Metabolite NEGATIVE <5 Cocaine Metabolite POSITIVE <150 Benzoylecgonine >51147 <100 Methadone Metabolite NEGATIVE <100 Opiates NEGATIVE <100 Oxycodone NEGATIVE <100 Buprenorphine POSITIVE <5 Buprenorphine 198 <5 Norbuprenorphine 430 <5 Heroin Metabolite NEGATIVE <10 Phencyclidine NEGATIVE <25 Alphahydroxymidazolam NEGATIVE <50 COMMENT DRUG TOX MONITORING ALCOHOL ETHYL, 2020-08-30 W/CONF U Alcohol, Ethyl POSITIVE <20 Alcohol, Ethyl 29 <20 COMMENT CHLAMYDIA DNA URINE 2020-08-30 CHLAMYDIA DNA URINE CHLAMYDIA/N. GONORRHOEAE RNA, TMA 2020-08-30 CHLAMYDIA TRACHOMATIS RNA, TMA, TNP UROGENITAL SPECIMEN ID [email or web address] 2020-08-30 SECOND ID COMMENT: CBC (H/H, RBC, INDICES, WBC, PLT) 2020-05-24 WHITE BLOOD CELL COUNT RED BLOOD CELL COUNT HEMOGLOBIN HEMATOCRIT MCV MCH MCHC RDW PLATELET COUNT MPV COMPREHENSIVE METABOLIC PANEL-[facility] 2020-05-24 GLUCOSE UREA NITROGEN (BUN) CREATININE eGFR NON-AFR. [place] eGFR BUN/CREATININE RATIO SODIUM POTASSIUM CHLORIDE CARBON DIOXIDE CALCIUM PROTEIN, TOTAL ALBUMIN GLOBULIN ALBUMIN/GLOBULIN RATIO BILIRUBIN, TOTAL ALKALINE PHOSPHATASE AST ALT EGFR X ray : Chest PA/Lateral CHLAMYDIA/N. GONORRHOEAE RNA, TMA 2020-03-08 CHLAMYDIA TRACHOMATIS RNA, TMA, NOT DETECTED NOT DETECTED UROGENITAL NEISSERIA GONORRHOEAE RNA, TMA, NOT DETECTED NOT DETECTED UROGENITAL COMMENT HEMOGLOBIN A1c 2020-03-08 HEMOGLOBIN A1c 5.2 <5.7 HIV 1/2 ANTIGEN/ANTIBODY,FOURTH 2020-03-08 GENERATION W/RFL HIV AG/AB, 4TH GEN NON-REACTIVE NON-REACTIVE LIPID PANEL 2020-03-08 TRIGLYCERIDES 382 <150 CHOLESTEROL, TOTAL 253 <200 HDL CHOLESTEROL 48 > OR = 40 LDL-CHOLESTEROL 146 CHOL/HDLC RATIO 5.3 <5.0 NON HDL CHOLESTEROL 205 <130 COMPREHENSIVE METABOLIC PANEL-[facility] 2020-03-08 GLUCOSE 94 65-139 UREA NITROGEN (BUN) 25 7-25 CREATININE 1.81 0.70-1.25 eGFR NON-AFR. [place] 40 > OR = 60 eGFR 46 > OR = 60 BUN/CREATININE RATIO 14 6-22 SODIUM 134 135-146 POTASSIUM 4.2 3.5-5.3 CHLORIDE 100 98-110 CARBON DIOXIDE 22 20-32 CALCIUM 8.8 8.6-10.3 PROTEIN, TOTAL 7.2 6.1-8.1 ALBUMIN 4.2 3.6-5.1 GLOBULIN 3.0 1.9-3.7 ALBUMIN/GLOBULIN RATIO 1.4 1.0-2.5 BILIRUBIN, TOTAL 0.3 0.2-1.2 ALKALINE PHOSPHATASE 69 35-144 AST 16 10-35 ALT 9 9-46 RPR (DX) W/REFL TITER AND 2020-03-08 CONFIRMATORY TESTING RPR (DX) W/REFL TITER AND NON-REACTIVE NON-RE ACTIVE CONFIRMATORY TESTING QUANTIFERON(R)-TB GOLD 2020-03-08 QUANTIFERON(R)-TB GOLD NIL TB-NIL MITOGEN-NIL HEPATITIS B SURFACE ANTIGEN W/REFL 2020-03-08 CONFIRM HEPATITIS B SURFACE ANTIGEN NON-REACTIVE NON- REACTIVE HEPATITIS C AB W/REFL TO HCV RNA, 2020-03-08 QN, PCR HEPATITIS C ANTIBODY NON-REACTIVE NON-REACTIV E SIGNAL TO CUT-OFF 0.03 <1.00 TSH W/REFLEX TO FT4 2020-03-08 TSH W/REFLEX TO FT4 3.90 0.40-4.50 HEPATITIS A AB, TOTAL W/REFL IGM 2020-03-08 HEPATITIS A AB, TOTAL W/REFL IGM NON-REACTIVE NON-REACTIVE DRUG TOX MONITORING 9 W/CONF, URINE 2020-03-08 Amphetamines NEGATIVE <500 MDMA/MDA NEGATIVE <500 Barbiturates NEGATIVE <300 Benzodiazepines NEGATIVE <100 Marijuana Metabolite 20 NEGATIVE <20 Cocaine Metabolite POSITIVE <150 Benzoylecgonine 478 <100 Methadone Metabolite NEGATIVE <100 Opiates NEGATIVE <100 Oxycodone NEGATIVE <100 Buprenorphine NEGATIVE CONFIRMED <5 Buprenorphine NEGATIVE <5 Norbuprenorphine NEGATIVE <5 Heroin Metabolite NEGATIVE <10 Phencyclidine NEGATIVE <25 COMMENT QUANTIFERON(R)-TB GOLD PLUS, 1 TUBE 2020-03-08 QUANTIFERON(R)-TB GOLD PLUS, 1 TUBE POSITIVE NEGATIVE NIL 0.14 MITOGEN-NIL >10.00 TB1-NIL 0.18 TB2-NIL 0.39 DRUG TOX MONITORING 9 W/CONF, URINE 2019-11-17 Amphetamines NEGATIVE <500 MDMA/MDA NEGATIVE <500 Barbiturates NEGATIVE <300 Benzodiazepines NEGATIVE <100 Marijuana Metabolite 20 NEGATIVE <20 Cocaine Metabolite NEGATIVE <150 Methadone Metabolite NEGATIVE <100 Opiates NEGATIVE <100 Oxycodone NEGATIVE <100 Buprenorphine NEGATIVE <5 Heroin Metabolite NEGATIVE <10 Phencyclidine NEGATIVE <25 COMMENT DRUG TOX MONITORING ALCOHOL ETHYL, 2019-11-17 W/CONF U Alcohol, Ethyl NEGATIVE <20 COMMENT DRUG TOX MONITORING 9 W/CONF, URINE 2019-11-03 Amphetamines NEGATIVE <500 MDMA/MDA NEGATIVE <500 Barbiturates NEGATIVE <300 Benzodiazepines NEGATIVE <100 Marijuana Metabolite 20 NEGATIVE <20 Cocaine Metabolite POSITIVE <150 Benzoylecgonine 362 <100 Methadone Metabolite NEGATIVE <100 Opiates NEGATIVE <100 Oxycodone NEGATIVE <100 Buprenorphine NEGATIVE <5 Heroin Metabolite NEGATIVE <10 Phencyclidine NEGATIVE <25 COMMENT DRUG TOX MONITORING 9 W/CONF, URINE 2019 Amphetamines NEGATIVE <500 MDMA/MDA NEGATIVE <500 Barbiturates NEGATIVE <300 Benzodiazepines NEGATIVE <100 Marijuana Metabolite 20 NEGATIVE <20 Cocaine Metabolite POSITIVE <150 Benzoylecgonine 901 <100 Methadone Metabolite NEGATIVE <100 Opiates NEGATIVE <100 Oxycodone NEGATIVE <100 Buprenorphine NEGATIVE <5 Heroin Metabolite NEGATIVE <10 Phencyclidine NEGATIVE <25 COMMENT DRUG TOX MONITORING ALCOHOL ETHYL, 2019 W/CONF U Alcohol, Ethyl POSITIVE <20 Alcohol, Ethyl 30 <20 COMMENT DRUG TOX MONITORING 9 W/CONF, URINE 2019-10-20 Amphetamines NEGATIVE <500 MDMA/MDA NEGATIVE <500 Barbiturates NEGATIVE <300 Benzodiazepines NEGATIVE <100 Marijuana Metabolite 20 NEGATIVE <20 Cocaine Metabolite NEGATIVE <150 Methadone Metabolite NEGATIVE <100 Opiates NEGATIVE <100 Oxycodone NEGATIVE <100 Buprenorphine NEGATIVE <5 Heroin Metabolite NEGATIVE <10 Phencyclidine NEGATIVE <25 COMMENT DRUG TOX MONITORING ALCOHOL ETHYL, 2019-10-20 W/CONF U Alcohol, Ethyl NEGATIVE <20 COMMENT DRUG TOX MONITORING 9 W/CONF, URINE 2019-10-13 Amphetamines NEGATIVE <500 MDMA/MDA NEGATIVE <500 Barbiturates NEGATIVE <300 Benzodiazepines NEGATIVE <100 Marijuana Metabolite 20 NEGATIVE <20 Cocaine Metabolite NEGATIVE <150 Methadone Metabolite NEGATIVE <100 Opiates NEGATIVE <100 Oxycodone NEGATIVE <100 Buprenorphine NEGATIVE <5 Heroin Metabolite NEGATIVE <10 Phencyclidine NEGATIVE <25 COMMENT DRUG TOX MONITORING ALCOHOL ETHYL, 2019-10-13 W/CONF U Alcohol, Ethyl NEGATIVE <20 COMMENT DRUG TOX MONITORING 9 W/CONF, URINE 2019-09-29 Amphetamines NEGATIVE <500 MDMA/MDA NEGATIVE <500 Barbiturates NEGATIVE <300 Benzodiazepines NEGATIVE <100 Marijuana Metabolite 20 NEGATIVE <20 Cocaine Metabolite POSITIVE <150 Benzoylecgonine >[id number] <100 Methadone Metabolite NEGATIVE <100 Opiates NEGATIVE <100 Oxycodone NEGATIVE <100 Buprenorphine POSITIVE <5 Buprenorphine 55 <5 Norbuprenorphine 383 <5 Heroin Metabolite NEGATIVE <10 Phencyclidine NEGATIVE <25 COMMENT MICROALBUMIN, RANDOM URINE 2019-09-22 (W/CREATININE) CREATININE, RANDOM URINE 164 20-320 ALBUMIN, URINE 4.4 See Note: ALBUMIN/CREATININE RATIO, RANDOM 27 <30 URINE ELECTROLYTE PANEL 2019-09-22 SODIUM 137 135-146 POTASSIUM 3.5 3.5-5.3 CHLORIDE 98 98-110 CARBON DIOXIDE 25 20-32 DRUG TOX MONITORING 9 W/CONF, URINE 2019-09-22 Amphetamines NEGATIVE <500 MDMA/MDA NEGATIVE <500 Barbiturates NEGATIVE <300 Benzodiazepines NEGATIVE <100 Marijuana Metabolite 20 NEGATIVE <20 Cocaine Metabolite POSITIVE <150 Benzoylecgonine >61246 <100 Methadone Metabolite NEGATIVE <100 Opiates NEGATIVE <100 Oxycodone NEGATIVE <100 Buprenorphine POSITIVE <5 Buprenorphine 35 <5 Norbuprenorphine 406 <5 Heroin Metabolite NEGATIVE <10 Phencyclidine NEGATIVE <25 COMMENT DRUG TOX MONITORING ALCOHOL ETHYL, 2019-09-22 W/CONF U Alcohol, Ethyl POSITIVE <20 Alcohol, Ethyl 36 <20 COMMENT BASIC METABOLIC PANEL 2019-09-15 GLUCOSE 86 65-99 UREA NITROGEN (BUN) 21 7-25 CREATININE 1.87 0.70-1.33 eGFR NON-AFR. [place] 38 > OR = 60 eGFR 45 > OR = 60 BUN/CREATININE RATIO 11 6-22 SODIUM 135 135-146 POTASSIUM 3.9 3.5-5.3 CHLORIDE 102 98-110 CARBON DIOXIDE 22 20-32 CALCIUM 9.1 8.6-10.3 TSH 2019-09-15 TSH 3.06 0.40-4.50 DRUG TOX MONITORING 9 W/CONF, URINE 2019-09-15 Amphetamines NEGATIVE <500 MDMA/MDA NEGATIVE <500 Barbiturates NEGATIVE <300 Benzodiazepines NEGATIVE <100 Marijuana Metabolite 20 NEGATIVE <20 Cocaine Metabolite POSITIVE <150 Benzoylecgonine >57417 <100 Methadone Metabolite NEGATIVE <100 Opiates NEGATIVE <100 Oxycodone NEGATIVE <100 Buprenorphine NEGATIVE <5 Heroin Metabolite NEGATIVE <10 Phencyclidine NEGATIVE <25 COMMENT DRUG TOX MONITORING 9 W/CONF, URINE 2019-09-08 Amphetamines NEGATIVE <500 MDMA/MDA NEGATIVE <500 Barbiturates NEGATIVE <300 Benzodiazepines NEGATIVE <100 Marijuana Metabolite 20 NEGATIVE <20 Cocaine Metabolite POSITIVE <150 Benzoylecgonine >57032 <100 Methadone Metabolite NEGATIVE <100 Opiates NEGATIVE <100 Oxycodone NEGATIVE <100 Buprenorphine POSITIVE <5 Buprenorphine 45 <5 Norbuprenorphine 550 <5 Heroin Metabolite NEGATIVE <10 Phencyclidine NEGATIVE <25 COMMENT DRUG TOX MONITORING 9 W/CONF, URINE 2019-09-01 Amphetamines NEGATIVE <500 MDMA/MDA NEGATIVE <500 Barbiturates NEGATIVE <300 Benzodiazepines NEGATIVE <100 Marijuana Metabolite 20 NEGATIVE <20 Cocaine Metabolite POSITIVE <150 Benzoylecgonine >39834 <100 Methadone Metabolite NEGATIVE <100 Opiates NEGATIVE <100 Oxycodone NEGATIVE <100 Buprenorphine NEGATIVE <5 Heroin Metabolite NEGATIVE <10 Phencyclidine NEGATIVE <25 COMMENT DRUG TOX MONITORING 9 W/CONF, URINE 2019-07-28 Amphetamines NEGATIVE <500 MDMA/MDA NEGATIVE <500 Barbiturates NEGATIVE <300 Benzodiazepines NEGATIVE <100 Marijuana Metabolite 20 NEGATIVE <20 Cocaine Metabolite POSITIVE <150 Benzoylecgonine >25602 <100 Methadone Metabolite NEGATIVE <100 Opiates NEGATIVE <100 Oxycodone NEGATIVE <100 Buprenorphine POSITIVE <5 Buprenorphine 41 <5 Norbuprenorphine 263 <5 Heroin Metabolite NEGATIVE <10 Phencyclidine NEGATIVE <25 COMMENT DRUG TOX MONITORING 9 W/CONF, URINE 2019-07-21 Amphetamines NEGATIVE <500 MDMA/MDA NEGATIVE <500 Barbiturates NEGATIVE <300 Benzodiazepines NEGATIVE <100 Marijuana Metabolite 20 NEGATIVE <20 Cocaine Metabolite NEGATIVE <150 Methadone Metabolite NEGATIVE <100 Opiates NEGATIVE <100 Oxycodone NEGATIVE <100 Buprenorphine POSITIVE <5 Buprenorphine 41 <5 Norbuprenorphine 319 <5 Heroin Metabolite NEGATIVE <10 Phencyclidine NEGATIVE <[address] Chest WO 2019-07-26 DRUG TOX MONITORING 9 W/CONF, URINE 2019-07-14 Amphetamines NEGATIVE <500 MDMA/MDA NEGATIVE <500 Barbiturates NEGATIVE <300 Benzodiazepines NEGATIVE <100 Marijuana Metabolite 20 NEGATIVE <20 Cocaine Metabolite POSITIVE <150 Benzoylecgonine >97658 <100 Methadone Metabolite NEGATIVE <100 Opiates NEGATIVE <100 Oxycodone NEGATIVE <100 Buprenorphine POSITIVE <5 Buprenorphine 14 <5 Norbuprenorphine 232 <5 Heroin Metabolite NEGATIVE <10 Phencyclidine NEGATIVE <25 COMMENT BASIC METABOLIC PANEL 2019-07-07 GLUCOSE 147 65-99 UREA NITROGEN (BUN) 23 7-25 CREATININE 1.87 0.70-1.33 eGFR NON-AFR. [place] 38 > OR = 60 eGFR 45 > OR = 60 BUN/CREATININE RATIO 12 6-22 SODIUM 135 135-146 POTASSIUM 3.7 3.5-5.3 CHLORIDE 97 98-110 CARBON DIOXIDE 26 20-32 CALCIUM 9.8 8.6-10.3 DRUG TOX MONITORING 9 W/CONF, URINE 2019-07-07 Amphetamines NEGATIVE <500 MDMA/MDA NEGATIVE <500 Barbiturates NEGATIVE <300 Benzodiazepines NEGATIVE <100 Marijuana Metabolite 20 NEGATIVE <20 Cocaine Metabolite POSITIVE <150 Benzoylecgonine >82583 <100 Methadone Metabolite NEGATIVE <100 Opiates NEGATIVE <100 Oxycodone NEGATIVE <100 Buprenorphine POSITIVE <5 Buprenorphine 29 <5 Norbuprenorphine 412 <5 Heroin Metabolite NEGATIVE <10 Phencyclidine NEGATIVE <25 COMMENT DRUG TOX MONITORING 9 W/CONF, URINE 2019-06-30 Amphetamines NEGATIVE <500 MDMA/MDA NEGATIVE <500 Barbiturates NEGATIVE <300 Benzodiazepines NEGATIVE <100 Marijuana Metabolite 20 NEGATIVE <20 Cocaine Metabolite POSITIVE <150 Benzoylecgonine >55658 <100 Methadone Metabolite NEGATIVE <100 Opiates NEGATIVE <100 Oxycodone NEGATIVE <100 Buprenorphine POSITIVE <5 Buprenorphine 9 <5 Norbuprenorphine 68 <5 Heroin Metabolite NEGATIVE <10 Phencyclidine NEGATIVE <25 COMMENT COMPREHENSIVE METABOLIC PANEL-[facility] 2019-06-23 GLUCOSE 119 65-139 UREA NITROGEN (BUN) 15 7-25 CREATININE 1.75 0.70-1.33 eGFR NON-AFR. [place] 42 > OR = 60 eGFR 48 > OR = 60 BUN/CREATININE RATIO 9 6-22 SODIUM 134 135-146 POTASSIUM 3.5 3.5-5.3 CHLORIDE 96 98-110 CARBON DIOXIDE 26 20-32 CALCIUM 10.3 8.6-10.3 PROTEIN, TOTAL 7.8 6.1-8.1 ALBUMIN 4.8 3.6-5.1 GLOBULIN 3.0 1.9-3.7 ALBUMIN/GLOBULIN RATIO 1.6 1.0-2.5 BILIRUBIN, TOTAL 0.5 0.2-1.2 ALKALINE PHOSPHATASE 68 40-115 AST 15 10-35 ALT 17 9-46 TSH 2019-06-23 TSH 3.13 0.40-4.50 DRUG TOX MONITORING 9 W/CONF, URINE 2019-06-23 Amphetamines NEGATIVE <500 MDMA/MDA NEGATIVE <500 Barbiturates NEGATIVE <300 Benzodiazepines NEGATIVE <100 Marijuana Metabolite 20 NEGATIVE <20 Cocaine Metabolite POSITIVE <150 Benzoylecgonine >99275 <100 Methadone Metabolite NEGATIVE <100 Opiates NEGATIVE <100 Oxycodone NEGATIVE <100 Buprenorphine POSITIVE <5 Buprenorphine 25 <5 Norbuprenorphine 349 <5 Heroin Metabolite NEGATIVE <10 Phencyclidine NEGATIVE <25 COMMENT DRUG TOX MONITORING 9 W/CONF, URINE 2019-06-16 Amphetamines NEGATIVE <500 MDMA/MDA NEGATIVE <500 Barbiturates NEGATIVE <300 Benzodiazepines NEGATIVE <100 Marijuana Metabolite 20 NEGATIVE <20 Cocaine Metabolite POSITIVE <150 Benzoylecgonine >23731 <100 Methadone Metabolite NEGATIVE <100 Opiates NEGATIVE <100 Oxycodone NEGATIVE <100 Buprenorphine POSITIVE <5 Buprenorphine 33 <5 Norbuprenorphine 478 <5 Heroin Metabolite NEGATIVE <10 Phencyclidine NEGATIVE <25 COMMENT DRUG TOX MONITORING W/CONF, URINE 2019-06-09 Amphetamines NEGATIVE <500 MDMA/MDA NEGATIVE <500 Barbiturates NEGATIVE <300 Benzodiazepines NEGATIVE <100 Marijuana Metabolite 20 NEGATIVE <20 Cocaine Metabolite POSITIVE <150 Benzoylecgonine >72691 <100 Methadone Metabolite NEGATIVE <100 Opiates NEGATIVE <100 Oxycodone NEGATIVE <100 Buprenorphine NEGATIVE <5 Heroin Metabolite NEGATIVE <10 Phencyclidine NEGATIVE <25 COMMENT DRUG TOX MONITORING W/CONF, URINE 2019-06-02 Amphetamines NEGATIVE <500 MDMA/MDA NEGATIVE <500 Barbiturates NEGATIVE <300 Benzodiazepines NEGATIVE <100 Marijuana Metabolite 20 NEGATIVE <20 Cocaine Metabolite POSITIVE <150 Benzoylecgonine >68643 <100 Methadone Metabolite NEGATIVE <100 Opiates NEGATIVE <100 Oxycodone NEGATIVE <100 Buprenorphine POSITIVE <5 Buprenorphine 15 <5 Norbuprenorphine 354 <5 Heroin Metabolite NEGATIVE <10 Phencyclidine NEGATIVE <25 COMMENT DRUG TOX MONITORING W/CONF, URINE 2019-05-26 Amphetamines NEGATIVE <500 MDMA/MDA NEGATIVE <500 Barbiturates NEGATIVE <300 Benzodiazepines NEGATIVE <100 Marijuana Metabolite 20 NEGATIVE <20 Cocaine Metabolite NEGATIVE <150 Methadone Metabolite NEGATIVE <100 Opiates NEGATIVE <100 Oxycodone NEGATIVE <100 Buprenorphine POSITIVE <5 Buprenorphine 17 <5 Norbuprenorphine 99 <5 Heroin Metabolite NEGATIVE <10 Phencyclidine NEGATIVE <25 COMMENT DRUG TOX MONITORING W/CONF, URINE 2019-05-23 Amphetamines NEGATIVE <500 MDMA/MDA NEGATIVE <500 Barbiturates NEGATIVE <300 Benzodiazepines NEGATIVE <100 Marijuana Metabolite 20 NEGATIVE <20 Cocaine Metabolite NEGATIVE <150 Methadone Metabolite NEGATIVE <100 Opiates NEGATIVE <100 Oxycodone NEGATIVE <100 Buprenorphine POSITIVE <5 Buprenorphine 15 <5 Norbuprenorphine 89 <5 Heroin Metabolite NEGATIVE <10 Phencyclidine NEGATIVE <25 COMMENT DRUG TOX MONITORING W/CONF, URINE 2019-05-12 Amphetamines NEGATIVE <500 MDMA/MDA NEGATIVE <500 Barbiturates NEGATIVE <300 Benzodiazepines NEGATIVE <100 Marijuana Metabolite 20 NEGATIVE <20 Cocaine Metabolite NEGATIVE <150 Methadone Metabolite NEGATIVE <100 Opiates NEGATIVE <100 Oxycodone NEGATIVE <100 Buprenorphine POSITIVE <5 Buprenorphine 11 <5 Norbuprenorphine 158 <5 Heroin Metabolite NEGATIVE <10 Phencyclidine NEGATIVE <25 COMMENT URINE DRUG SCREEN 2019-05-05 URINE OXYCODONE BUPRENORPHINE positive AMPHETAMINE, URINE BARBITURATES, URINE BENZODIAZEPINE, URINE COCAINE, URINE METHADONE, URINE OPIATES, URINE MARIJUANA (THC), URINE DRUG TOX MONITORING 9 W/CONF, URINE 2019-04-28 Amphetamines NEGATIVE <500 MDMA/MDA NEGATIVE <500 Barbiturates NEGATIVE <300 Benzodiazepines NEGATIVE <100 Marijuana Metabolite 20 NEGATIVE <20 Cocaine Metabolite NEGATIVE <150 Methadone Metabolite NEGATIVE <100 Opiates NEGATIVE <100 Oxycodone NEGATIVE <100 Buprenorphine POSITIVE <5 Buprenorphine 90 <5 Norbuprenorphine 982 <5 Heroin Metabolite NEGATIVE <10 Phencyclidine NEGATIVE <25 COMMENT DRUG TOX MONITORING 9 W/CONF, URINE 2019-04-21 Amphetamines NEGATIVE <500 MDMA/MDA NEGATIVE <500 Barbiturates NEGATIVE <300 Benzodiazepines NEGATIVE <100 Marijuana Metabolite 20 NEGATIVE <20 Cocaine Metabolite NEGATIVE <150 Methadone Metabolite NEGATIVE <100 Opiates NEGATIVE <100 Oxycodone NEGATIVE <100 Buprenorphine POSITIVE <5 Buprenorphine 24 <5 Norbuprenorphine 423 <5 Heroin Metabolite NEGATIVE <10 Phencyclidine NEGATIVE <25 COMMENT DRUG TOX MONITORING 9 W/CONF, URINE 2019-04-14 Amphetamines NEGATIVE <500 MDMA/MDA NEGATIVE <500 Barbiturates NEGATIVE <300 Benzodiazepines NEGATIVE <100 Marijuana Metabolite 20 NEGATIVE <20 Cocaine Metabolite NEGATIVE <150 Methadone Metabolite NEGATIVE <100 Opiates NEGATIVE <100 Oxycodone NEGATIVE <100 Buprenorphine POSITIVE <5 Buprenorphine 29 <5 Norbuprenorphine 466 <5 Heroin Metabolite NEGATIVE <10 Phencyclidine NEGATIVE <25 COMMENT DRUG TOX MONITORING 9 W/CONF, URINE 2019-04-07 Amphetamines NEGATIVE <500 MDMA/MDA NEGATIVE <500 Barbiturates NEGATIVE <300 Benzodiazepines NEGATIVE <100 Marijuana Metabolite 20 NEGATIVE <20 Cocaine Metabolite NEGATIVE <150 Methadone Metabolite NEGATIVE <100 Opiates NEGATIVE <100 Oxycodone NEGATIVE <100 Buprenorphine POSITIVE <5 Buprenorphine 52 <5 Norbuprenorphine 279 <5 Heroin Metabolite NEGATIVE <10 Phencyclidine NEGATIVE <25 COMMENT DRUG TOX MONITORING 9 W/CONF, URINE 2019-03-31 Amphetamines NEGATIVE <500 MDMA/MDA NEGATIVE <500 Barbiturates NEGATIVE <300 Benzodiazepines NEGATIVE <100 Marijuana Metabolite 20 NEGATIVE <20 Cocaine Metabolite NEGATIVE <150 Methadone Metabolite NEGATIVE <100 Opiates NEGATIVE <100 Oxycodone NEGATIVE <100 Buprenorphine POSITIVE <5 Buprenorphine 300 <5 Norbuprenorphine 1036 <5 Heroin Metabolite NEGATIVE <10 Phencyclidine NEGATIVE <25 COMMENT COMPREHENSIVE METABOLIC PANEL-[facility] 2019-03-24 GLUCOSE 93 65-99 UREA NITROGEN (BUN) 16 7-25 CREATININE 1.28 0.70-1.33 eGFR NON-AFR. [place] 61 > OR = 60 eGFR 71 > OR = 60 BUN/CREATININE RATIO NOT APPLICABLE 6-22 SODIUM 136 135-146 POTASSIUM 3.5 3.5-5.3 CHLORIDE 99 98-110 CARBON DIOXIDE 25 20-32 CALCIUM 9.6 8.6-10.3 PROTEIN, TOTAL 7.2 6.1-8.1 ALBUMIN 4.1 3.6-5.1 GLOBULIN 3.1 1.9-3.7 ALBUMIN/GLOBULIN RATIO 1.3 1.0-2.5 BILIRUBIN, TOTAL 0.4 0.2-1.2 ALKALINE PHOSPHATASE 76 40-115 AST 20 10-35 ALT 13 9-46 TSH W/REFLEX TO FT4 2019-03-24 TSH W/REFLEX TO FT4 9.06 0.40-4.50 T4, FREE 1.3 0.8-1.8 DRUG TOX MONITORING 9 W/CONF, URINE 2019-03-24 Amphetamines NEGATIVE <500 MDMA/MDA NEGATIVE <500 Barbiturates NEGATIVE <300 Benzodiazepines NEGATIVE <100 Marijuana Metabolite 20 NEGATIVE <20 Cocaine Metabolite NEGATIVE <150 Methadone Metabolite NEGATIVE <100 Opiates NEGATIVE <100 Oxycodone NEGATIVE <100 Buprenorphine POSITIVE <5 Buprenorphine 30 <5 Norbuprenorphine 171 <5 Heroin Metabolite NEGATIVE <10 Phencyclidine NEGATIVE <25 COMMENT DRUG TOX MONITORING 9 W/CONF, URINE 2019-03-17 Amphetamines NEGATIVE <500 MDMA/MDA NEGATIVE <500 Barbiturates NEGATIVE <300 Benzodiazepines NEGATIVE <100 Marijuana Metabolite 20 NEGATIVE <20 Cocaine Metabolite NEGATIVE <150 Methadone Metabolite NEGATIVE <100 Opiates NEGATIVE <100 Oxycodone NEGATIVE <100 Buprenorphine POSITIVE <5 Buprenorphine 28 <5 Norbuprenorphine 177 <5 Heroin Metabolite NEGATIVE <10 Phencyclidine NEGATIVE <25 COMMENT DRUG TOX MONITORING 9 W/CONF, URINE 2019-03-10 Amphetamines NEGATIVE <500 MDMA/MDA NEGATIVE <500 Barbiturates NEGATIVE <300 Benzodiazepines NEGATIVE <100 Marijuana Metabolite 20 NEGATIVE <20 Cocaine Metabolite NEGATIVE <150 Methadone Metabolite NEGATIVE <100 Opiates NEGATIVE <100 Oxycodone NEGATIVE <100 Buprenorphine POSITIVE <5 Buprenorphine 35 <5 Norbuprenorphine 209 <5 Heroin Metabolite NEGATIVE <10 Phencyclidine NEGATIVE <25 COMMENT DRUG TOX MONITORING 9 W/CONF, URINE 2019-03-03 Amphetamines NEGATIVE <500 MDMA/MDA NEGATIVE <500 Barbiturates NEGATIVE <300 Benzodiazepines NEGATIVE <100 Marijuana Metabolite 20 NEGATIVE <20 Cocaine Metabolite NEGATIVE <150 Methadone Metabolite NEGATIVE <100 Opiates NEGATIVE <100 Oxycodone NEGATIVE <100 Buprenorphine POSITIVE <5 Buprenorphine 44 <5 Norbuprenorphine 314 <5 Heroin Metabolite NEGATIVE <10 Phencyclidine NEGATIVE <25 COMMENT DRUG TOX MONITORING 9 W/CONF, URINE 2019-02-24 Amphetamines NEGATIVE <500 MDMA/MDA NEGATIVE <500 Barbiturates NEGATIVE <300 Benzodiazepines NEGATIVE <100 Marijuana Metabolite 20 NEGATIVE <20 Cocaine Metabolite NEGATIVE <150 Methadone Metabolite NEGATIVE <100 Opiates NEGATIVE <100 Oxycodone NEGATIVE <100 Buprenorphine POSITIVE <5 Buprenorphine 8 <5 Norbuprenorphine 31 <5 Heroin Metabolite NEGATIVE <10 Phencyclidine NEGATIVE <25 COMMENT DRUG TOX MONITORING 9 W/CONF, URINE 2019-02-20 Amphetamines NEGATIVE <500 MDMA/MDA NEGATIVE <500 Barbiturates NEGATIVE <300 Benzodiazepines NEGATIVE <100 Marijuana Metabolite 20 NEGATIVE <20 Cocaine Metabolite NEGATIVE <150 Methadone Metabolite NEGATIVE <100 Opiates NEGATIVE <100 Oxycodone NEGATIVE <100 Buprenorphine POSITIVE <5 Buprenorphine 65 <5 Norbuprenorphine 423 <5 Heroin Metabolite NEGATIVE <10 Phencyclidine NEGATIVE <25 COMMENT DRUG TOX MONITORING W/CONF, URINE 2019-02-17 Amphetamines NEGATIVE <500 MDMA/MDA NEGATIVE <500 Barbiturates NEGATIVE <300 Benzodiazepines NEGATIVE <100 Marijuana Metabolite 20 NEGATIVE <20 Cocaine Metabolite NEGATIVE <150 Methadone Metabolite NEGATIVE <100 Opiates NEGATIVE <100 Oxycodone NEGATIVE <100 Buprenorphine NEGATIVE <5 Heroin Metabolite NEGATIVE <10 Phencyclidine NEGATIVE <25 COMMENT DRUG TOX MONITORING 9 W/CONF, URINE 2019-02-10 Amphetamines NEGATIVE <500 MDMA/MDA NEGATIVE <500 Barbiturates NEGATIVE <300 Benzodiazepines NEGATIVE <100 Marijuana Metabolite 20 NEGATIVE <20 Cocaine Metabolite POSITIVE <150 Benzoylecgonine 667 <100 Methadone Metabolite NEGATIVE <100 Opiates NEGATIVE <100 Oxycodone NEGATIVE <100 Buprenorphine POSITIVE <5 Buprenorphine 12 <5 Norbuprenorphine 150 <5 Heroin Metabolite NEGATIVE <10 Phencyclidine NEGATIVE <25 COMMENT DRUG TOX MONITORING 9 W/CONF, URINE 2019-02-03 Amphetamines NEGATIVE <500 MDMA/MDA NEGATIVE <500 Barbiturates NEGATIVE <300 Benzodiazepines NEGATIVE <100 Marijuana Metabolite 20 NEGATIVE <20 Cocaine Metabolite NEGATIVE <150 Methadone Metabolite NEGATIVE <100 Opiates NEGATIVE <100 Oxycodone NEGATIVE <100 Buprenorphine NEGATIVE <5 Heroin Metabolite NEGATIVE <10 Phencyclidine NEGATIVE <25 COMMENT DRUG TOX MONITORING 9 W/CONF, URINE 2019-01-27 Amphetamines NEGATIVE <500 MDMA/MDA NEGATIVE <500 Barbiturates NEGATIVE <300 Benzodiazepines NEGATIVE <100 Marijuana Metabolite 20 NEGATIVE <20 Cocaine Metabolite NEGATIVE <150 Methadone Metabolite NEGATIVE <100 Opiates NEGATIVE <100 Oxycodone NEGATIVE <100 Buprenorphine POSITIVE <5 Buprenorphine NEGATIVE <5 Norbuprenorphine 6 <5 Heroin Metabolite NEGATIVE <10 Phencyclidine NEGATIVE <25 COMMENT DRUG TOX MONITORING 9 W/CONF, URINE 2019-01-20 Amphetamines NEGATIVE <500 MDMA/MDA NEGATIVE <500 Barbiturates NEGATIVE <300 Benzodiazepines NEGATIVE <100 Marijuana Metabolite 20 NEGATIVE <20 Cocaine Metabolite NEGATIVE <150 Methadone Metabolite NEGATIVE <100 Opiates NEGATIVE <100 Oxycodone NEGATIVE <100 Buprenorphine POSITIVE <5 Buprenorphine 297 <5 Norbuprenorphine 261 <5 Heroin Metabolite NEGATIVE <10 Phencyclidine NEGATIVE <25 COMMENT DRUG TOX MONITORING 9 W/CONF, URINE 2019-01-13 Amphetamines NEGATIVE <500 MDMA/MDA NEGATIVE <500 Barbiturates NEGATIVE <300 Benzodiazepines NEGATIVE <100 Marijuana Metabolite 20 NEGATIVE <20 Cocaine Metabolite NEGATIVE <150 Methadone Metabolite NEGATIVE <100 Opiates NEGATIVE <100 Oxycodone NEGATIVE <100 Buprenorphine POSITIVE <5 Buprenorphine 6 <5 Norbuprenorphine 59 <5 Heroin Metabolite NEGATIVE <10 Phencyclidine NEGATIVE <25 COMMENT COMPREHENSIVE METABOLIC PANEL-[facility] 2018-12-23 GLUCOSE 95 65-99 UREA NITROGEN (BUN) 21 7-25 CREATININE 1.31 0.70-1.33 eGFR NON-AFR. [place] 59 > OR = 60 eGFR 69 > OR = 60 BUN/CREATININE RATIO NOT APPLICABLE 6-22 SODIUM 136 135-146 POTASSIUM 4.2 3.5-5.3 CHLORIDE 102 98-110 CARBON DIOXIDE 26 20-32 CALCIUM 9.8 8.6-10.3 PROTEIN, TOTAL 7.2 6.1-8.1 ALBUMIN 4.1 3.6-5.1 GLOBULIN 3.1 1.9-3.7 ALBUMIN/GLOBULIN RATIO 1.3 1.0-2.5 BILIRUBIN, TOTAL 0.3 0.2-1.2 ALKALINE PHOSPHATASE 107 40-115 AST 15 10-35 ALT 18 9-46 DRUG TOX MONITORING 9 W/CONF, URINE 2018-12-23 Amphetamines NEGATIVE <500 MDMA/MDA NEGATIVE <500 Barbiturates NEGATIVE <300 Benzodiazepines NEGATIVE <100 Marijuana Metabolite 20 NEGATIVE <20 Cocaine Metabolite NEGATIVE <150 Methadone Metabolite NEGATIVE <100 Opiates NEGATIVE <100 Oxycodone NEGATIVE <100 Buprenorphine POSITIVE <5 Buprenorphine 101 <5 Norbuprenorphine 693 <5 Heroin Metabolite NEGATIVE <10 Phencyclidine NEGATIVE <25 COMMENT DRUG TOX MONITORING 9 W/CONF, URINE 2018-12-16 Amphetamines NEGATIVE <500 MDMA/MDA NEGATIVE <500 Barbiturates NEGATIVE <300 Benzodiazepines NEGATIVE <100 Marijuana Metabolite 20 NEGATIVE <20 Cocaine Metabolite NEGATIVE <150 Methadone Metabolite NEGATIVE <100 Opiates NEGATIVE <100 Oxycodone NEGATIVE <100 Buprenorphine POSITIVE <5 Buprenorphine 310 <5 Norbuprenorphine >2000 <5 Heroin Metabolite NEGATIVE <10 Phencyclidine NEGATIVE <25 COMMENT DRUG TOX MONITORING 9 W/CONF, URINE 2018-11-25 Amphetamines NEGATIVE <500 MDMA/MDA NEGATIVE <500 Barbiturates NEGATIVE <300 Benzodiazepines NEGATIVE <100 Marijuana Metabolite 20 NEGATIVE <20 Cocaine Metabolite NEGATIVE <150 Methadone Metabolite NEGATIVE <100 Opiates NEGATIVE <100 Oxycodone NEGATIVE <100 Buprenorphine NEGATIVE <5 Heroin Metabolite NEGATIVE <10 Phencyclidine NEGATIVE <25 COMMENT DRUG TOX MONITORING 9 W/CONF, URINE 2018-11-18 Amphetamines NEGATIVE <500 MDMA/MDA NEGATIVE <500 Barbiturates NEGATIVE <300 Benzodiazepines NEGATIVE <100 Marijuana Metabolite 20 NEGATIVE <20 Cocaine Metabolite NEGATIVE <150 Methadone Metabolite NEGATIVE <100 Opiates NEGATIVE <100 Oxycodone NEGATIVE <100 Buprenorphine NEGATIVE <5 Heroin Metabolite NEGATIVE <10 Phencyclidine NEGATIVE <25 COMMENT DRUG TOX MONITORING 9 W/CONF, URINE 2018-11-04 Amphetamines NEGATIVE <500 MDMA/MDA NEGATIVE <500 Barbiturates NEGATIVE <300 Benzodiazepines NEGATIVE <100 Marijuana Metabolite 20 NEGATIVE <20 Cocaine Metabolite NEGATIVE <150 Methadone Metabolite NEGATIVE <100 Opiates NEGATIVE <100 Oxycodone NEGATIVE <100 Buprenorphine POSITIVE <5 Buprenorphine 125 <5 Norbuprenorphine 1089 <5 Heroin Metabolite NEGATIVE <10 Phencyclidine NEGATIVE <25 COMMENT DRUG TOX MONITORING 9 W/CONF, URINE 2018-10-28 Amphetamines NEGATIVE <500 MDMA/MDA NEGATIVE <500 Barbiturates NEGATIVE <300 Benzodiazepines NEGATIVE <100 Marijuana Metabolite 20 NEGATIVE <20 Cocaine Metabolite NEGATIVE <150 Methadone Metabolite NEGATIVE <100 Opiates NEGATIVE <100 Oxycodone NEGATIVE <100 Buprenorphine POSITIVE <5 Buprenorphine 50 <5 Norbuprenorphine 356 <5 Heroin Metabolite NEGATIVE <10 Phencyclidine NEGATIVE <25 COMMENT BASIC METABOLIC PANEL 2018-10-21 GLUCOSE 119 65-99 UREA NITROGEN (BUN) 25 7-25 CREATININE 1.43 0.70-1.33 eGFR NON-AFR. [place] 54 > OR = 60 eGFR 62 > OR = 60 BUN/CREATININE RATIO 17 6-22 SODIUM 134 135-146 POTASSIUM 4.3 3.5-5.3 CHLORIDE 99 98-110 CARBON DIOXIDE 24 20-32 CALCIUM 9.3 8.6-10.3 HEPATIC FUNCTION PANEL 2018-10-21 PROTEIN, TOTAL 7.5 6.1-8.1 ALBUMIN 4.3 3.6-5.1 GLOBULIN 3.2 1.9-3.7 ALBUMIN/GLOBULIN RATIO 1.3 1.0-2.5 BILIRUBIN, TOTAL 0.4 0.2-1.2 BILIRUBIN, DIRECT 0.1 < OR = 0.2 BILIRUBIN, INDIRECT 0.3 0.2-1.2 ALKALINE PHOSPHATASE 58 40-115 AST 16 10-35 ALT 10 9-46 TSH 2018-10-21 TSH 4.37 0.40-4.50 DRUG TOX MONITORING 9 W/CONF, URINE 2018-10-21 Amphetamines NEGATIVE <500 MDMA/MDA NEGATIVE <500 Barbiturates NEGATIVE <300 Benzodiazepines NEGATIVE <100 Marijuana Metabolite 20 NEGATIVE <20 Cocaine Metabolite NEGATIVE <150 Methadone Metabolite NEGATIVE <100 Opiates NEGATIVE <100 Oxycodone NEGATIVE <100 Buprenorphine POSITIVE <5 Buprenorphine 121 <5 Norbuprenorphine 453 <5 Heroin Metabolite NEGATIVE <10 Phencyclidine NEGATIVE <25 COMMENT DRUG TOX MONITORING ALCOHOL ETHYL, 2018-10-21 W/CONF U Alcohol, Ethyl NEGATIVE <20 COMMENT DRUG TOX MONITORING 9 W/CONF, URINE 2018-10-14 Amphetamines NEGATIVE <500 MDMA/MDA NEGATIVE <500 Barbiturates NEGATIVE <300 Benzodiazepines NEGATIVE <100 Marijuana Metabolite 20 NEGATIVE <20 Cocaine Metabolite NEGATIVE <150 Methadone Metabolite NEGATIVE <100 Opiates NEGATIVE <100 Oxycodone NEGATIVE <100 Buprenorphine POSITIVE <5 Buprenorphine 107 <5 Norbuprenorphine 262 <5 Heroin Metabolite NEGATIVE <10 Phencyclidine NEGATIVE <25 COMMENT DRUG TOX MONITORING 9 W/CONF, URINE 2018-10-07 Amphetamines NEGATIVE <500 MDMA/MDA NEGATIVE <500 Barbiturates NEGATIVE <300 Benzodiazepines NEGATIVE <100 Marijuana Metabolite 20 NEGATIVE <20 Cocaine Metabolite NEGATIVE <150 Methadone Metabolite NEGATIVE <100 Opiates NEGATIVE <100 Oxycodone NEGATIVE <100 Buprenorphine POSITIVE <5 Buprenorphine 15 <5 Norbuprenorphine 127 <5 Heroin Metabolite NEGATIVE <10 Phencyclidine NEGATIVE <25 COMMENT DRUG TOX MONITORING ALCOHOL ETHYL, 2018-10-07 W/CONF U Alcohol, Ethyl POSITIVE <20 Alcohol, Ethyl 99 <20 COMMENT TEST IN QUESTION - $NO TEST ON 2018-10-07 CONTAINER COMMENT SPECIMEN(S) RECEIVED: MARBLED TOP URINALYSIS TUBE QUESTION/PROBLEM: DRUG TOX MONITORING 9 W/CONF, URINE 2018-09-30 Amphetamines NEGATIVE <500 MDMA/MDA NEGATIVE <500 Barbiturates NEGATIVE <300 Benzodiazepines NEGATIVE <100 Marijuana Metabolite 20 NEGATIVE <20 Cocaine Metabolite NEGATIVE <150 Methadone Metabolite NEGATIVE <100 Opiates NEGATIVE <100 Oxycodone NEGATIVE <100 Buprenorphine POSITIVE <5 Buprenorphine 32 <5 Norbuprenorphine 158 <5 Heroin Metabolite NEGATIVE <10 Phencyclidine NEGATIVE <25 COMMENT DRUG TOX MONITORING 9 W/CONF, URINE 2018-09-23 Amphetamines NEGATIVE <500 MDMA/MDA NEGATIVE <500 Barbiturates NEGATIVE <300 Benzodiazepines NEGATIVE <100 Marijuana Metabolite 20 NEGATIVE <20 Cocaine Metabolite NEGATIVE <150 Methadone Metabolite NEGATIVE <100 Opiates NEGATIVE <100 Oxycodone NEGATIVE <100 Buprenorphine POSITIVE <5 Buprenorphine 57 <5 Norbuprenorphine 193 <5 Heroin Metabolite NEGATIVE <10 Phencyclidine NEGATIVE <25 COMMENT DRUG TOX MONITORING ALCOHOL ETHYL, 2018-09-23 W/CONF U Alcohol, Ethyl NEGATIVE <20 COMMENT DRUG TOX MONITORING 9 W/CONF, URINE 2018-09-16 Amphetamines NEGATIVE <500 MDMA/MDA NEGATIVE <500 Barbiturates NEGATIVE <300 Benzodiazepines NEGATIVE <100 Marijuana Metabolite 20 NEGATIVE <20 Cocaine Metabolite NEGATIVE <150 Methadone Metabolite NEGATIVE <100 Opiates NEGATIVE <100 Oxycodone NEGATIVE <100 Buprenorphine POSITIVE <5 Buprenorphine 73 <5 Norbuprenorphine 402 <5 Heroin Metabolite NEGATIVE <10 Phencyclidine NEGATIVE <25 COMMENT DRUG TOX MONITORING ALCOHOL ETHYL, 2018-09-16 W/CONF U Alcohol, Ethyl NEGATIVE <20 COMMENT DRUG TOX MONITORING 9 W/CONF, URINE 2018-09-02 Amphetamines NEGATIVE <500 MDMA/MDA NEGATIVE <500 Barbiturates NEGATIVE <300 Benzodiazepines NEGATIVE <100 Marijuana Metabolite 20 NEGATIVE <20 Cocaine Metabolite NEGATIVE <150 Methadone Metabolite NEGATIVE <100 Opiates NEGATIVE <100 Oxycodone NEGATIVE <100 Buprenorphine POSITIVE <5 Buprenorphine 121 <5 Norbuprenorphine 272 <5 Heroin Metabolite NEGATIVE <10 Phencyclidine NEGATIVE <25 COMMENT DRUG TOX MONITORING 9 W/CONF, URINE 2018-08-26 Amphetamines NEGATIVE <500 MDMA/MDA NEGATIVE <500 Barbiturates NEGATIVE <300 Benzodiazepines NEGATIVE CONFIRMED <100 Alphahydroxyalprazolam NEGATIVE <25 Hydroxyethylflurazepam NEGATIVE <50 Lorazepam NEGATIVE <50 Nordiazepam NEGATIVE <50 Oxazepam NEGATIVE <50 Temazepam NEGATIVE <50 Alphahydroxytriazolam NEGATIVE <50 Aminoclonazepam NEGATIVE <25 Marijuana Metabolite 20 NEGATIVE <20 Cocaine Metabolite NEGATIVE <150 Methadone Metabolite NEGATIVE <100 Opiates NEGATIVE <100 Oxycodone NEGATIVE <100 Buprenorphine POSITIVE <5 Buprenorphine 26 <5 Norbuprenorphine 108 <5 Heroin Metabolite NEGATIVE <10 Phencyclidine NEGATIVE <25 Alphahydroxymidazolam NEGATIVE <50 COMMENT DRUG TOX MONITORING W/CONF, URINE 2018-08-19 Amphetamines NEGATIVE <500 MDMA/MDA NEGATIVE <500 Barbiturates NEGATIVE <300 Benzodiazepines POSITIVE <100 Alphahydroxyalprazolam NEGATIVE <25 Hydroxyethylflurazepam NEGATIVE <50 Lorazepam NEGATIVE <50 Nordiazepam NEGATIVE <50 Oxazepam 228 <50 Temazepam NEGATIVE <50 Alphahydroxytriazolam NEGATIVE <50 Aminoclonazepam NEGATIVE <25 Marijuana Metabolite 20 NEGATIVE <20 Cocaine Metabolite NEGATIVE <150 Methadone Metabolite NEGATIVE <100 Opiates NEGATIVE <100 Oxycodone NEGATIVE <100 Buprenorphine POSITIVE <5 Buprenorphine 129 <5 Norbuprenorphine 308 <5 Heroin Metabolite NEGATIVE <10 Phencyclidine NEGATIVE <25 Alphahydroxymidazolam NEGATIVE <50 COMMENT DRUG TOX MONITORING W/CONF, URINE 2018-08-12 Amphetamines NEGATIVE <500 MDMA/MDA NEGATIVE <500 Barbiturates NEGATIVE <300 Benzodiazepines POSITIVE <100 Alphahydroxyalprazolam NEGATIVE <25 Hydroxyethylflurazepam NEGATIVE <50 Lorazepam NEGATIVE <50 Nordiazepam NEGATIVE <50 Oxazepam 389 <50 Temazepam NEGATIVE <50 Alphahydroxytriazolam NEGATIVE <50 Aminoclonazepam NEGATIVE <25 Marijuana Metabolite 20 NEGATIVE <20 Cocaine Metabolite NEGATIVE <150 Methadone Metabolite NEGATIVE <100 Opiates NEGATIVE <100 Oxycodone NEGATIVE <100 Buprenorphine POSITIVE <5 Buprenorphine 183 <5 Norbuprenorphine 1859 <5 Heroin Metabolite NEGATIVE <10 Phencyclidine NEGATIVE <25 Alphahydroxymidazolam NEGATIVE <50 COMMENT Drug Toxicology 2018-08-12 DRUG TOX MONITORING 9 W/CONF, URINE 2018-08-05 Amphetamines NEGATIVE <500 MDMA/MDA NEGATIVE <500 Barbiturates NEGATIVE <300 Benzodiazepines NEGATIVE <100 Marijuana Metabolite 20 NEGATIVE <20 Cocaine Metabolite NEGATIVE <150 Methadone Metabolite NEGATIVE <100 Opiates POSITIVE <100 Codeine NEGATIVE <50 Morphine 142 <50 Hydrocodone NEGATIVE <50 Hydromorphone NEGATIVE <50 Oxycodone NEGATIVE <100 Buprenorphine POSITIVE <5 Buprenorphine 68 <5 Norbuprenorphine 164 <5 Heroin Metabolite NEGATIVE <10 Phencyclidine NEGATIVE <25 Norhydrocodone NEGATIVE <50 COMMENT DRUG TOX MONITORING 9 W/CONF, URINE 2018-07-29 Amphetamines NEGATIVE <500 MDMA/MDA NEGATIVE <500 Barbiturates NEGATIVE <300 Benzodiazepines NEGATIVE <100 Marijuana Metabolite 20 NEGATIVE <20 Cocaine Metabolite NEGATIVE <150 Methadone Metabolite NEGATIVE <100 Opiates POSITIVE <100 Codeine NEGATIVE <50 Morphine 154 <50 Hydrocodone NEGATIVE <50 Hydromorphone NEGATIVE <50 Oxycodone NEGATIVE <100 Buprenorphine POSITIVE <5 Buprenorphine 835 <5 Norbuprenorphine 714 <5 Heroin Metabolite NEGATIVE <10 Phencyclidine NEGATIVE <25 Norhydrocodone NEGATIVE <50 COMMENT DRUG TOX MONITORING 9 W/CONF, URINE 2018-07-22 Amphetamines NEGATIVE <500 MDMA/MDA NEGATIVE <500 Barbiturates NEGATIVE <300 Benzodiazepines NEGATIVE <100 Marijuana Metabolite 20 NEGATIVE <20 Cocaine Metabolite NEGATIVE <150 Methadone Metabolite NEGATIVE <100 Opiates NEGATIVE <100 Oxycodone NEGATIVE <100 Buprenorphine POSITIVE <5 Buprenorphine 16 <5 Norbuprenorphine 50 <5 Heroin Metabolite NEGATIVE <10 Phencyclidine NEGATIVE <25 COMMENT DRUG TOX MONITORING ALCOHOL ETHYL, 2018-07-22 W/CONF U Alcohol, Ethyl POSITIVE <20 Alcohol, Ethyl 113 <20 COMMENT FECAL GLOBIN BY IMMUNOCHEMISTRY 2018-07-22 FECAL GLOBIN BY IMMUNOCHEMISTRY SEE NOTE Drug Toxicology 2018-07-15 DRUG TOX MONITORING 9 W/CONF, URINE 2018-07-08 Amphetamines NEGATIVE <500 MDMA/MDA NEGATIVE <500 Barbiturates NEGATIVE <300 Benzodiazepines NEGATIVE <100 Marijuana Metabolite 20 POSITIVE <20 Marijuana Metabolite 202 <5 Cocaine Metabolite NEGATIVE <150 Methadone Metabolite NEGATIVE <100 Opiates NEGATIVE <100 Oxycodone NEGATIVE <100 Buprenorphine NEGATIVE <5 Heroin Metabolite NEGATIVE <10 Phencyclidine NEGATIVE <25 COMMENT DRUG TOX MONITORING ALCOHOL ETHYL, 2018-07-08 W/CONF U Alcohol, Ethyl NEGATIVE <20 COMMENT DRUG TOX MONITORING 9 W/CONF, URINE 2018-07-01 Amphetamines NEGATIVE <500 MDMA/MDA NEGATIVE <500 Barbiturates NEGATIVE <300 Benzodiazepines NEGATIVE <100 Marijuana Metabolite 20 NEGATIVE <20 Cocaine Metabolite NEGATIVE <150 Methadone Metabolite NEGATIVE <100 Opiates NEGATIVE <100 Oxycodone NEGATIVE <100 Buprenorphine NEGATIVE <5 Heroin Metabolite NEGATIVE <10 Phencyclidine NEGATIVE <25 COMMENT DRUG TOX MONITORING ALCOHOL ETHYL, 2018-07-01 W/CONF U Alcohol, Ethyl NEGATIVE <20 COMMENT PREALBUMIN PREALBUMIN CBC (H/H, RBC, INDICES, WBC, PLT) 2018-06-24 WHITE BLOOD CELL COUNT 9.8 3.8-10.8 RED BLOOD CELL COUNT 3.73 4.20-5.80 HEMOGLOBIN 12.1 13.2-17.1 HEMATOCRIT 34.7 38.5-50.0 MCV 93.0 80.0-100.0 MCH 32.4 27.0-33.0 MCHC 34.9 32.0-36.0 RDW 11.9 11.0-15.0 PLATELET COUNT 400 140-400 MPV 9.2 7.5-12.5 HIV 1/2 ANTIGEN/ANTIBODY,FOURTH 2018-06-24 GENERATION W/RFL HIV AG/AB, 4TH GEN NON-REACTIVE NON-REACTIVE COMPREHENSIVE METABOLIC PANEL-[facility] 2018-06-24 GLUCOSE 114 65-99 UREA NITROGEN (BUN) 22 7-25 CREATININE 1.11 0.70-1.33 eGFR NON-AFR. [place] 73 > OR = 60 eGFR 84 > OR = 60 BUN/CREATININE RATIO NOT APPLICABLE 6-22 SODIUM 137 135-146 POTASSIUM 4.3 3.5-5.3 CHLORIDE 102 98-110 CARBON DIOXIDE 27 20-32 CALCIUM 9.9 8.6-10.3 PROTEIN, TOTAL 7.8 6.1-8.1 ALBUMIN 4.2 3.6-5.1 GLOBULIN 3.6 1.9-3.7 ALBUMIN/GLOBULIN RATIO 1.2 1.0-2.5 BILIRUBIN, TOTAL 0.4 0.2-1.2 ALKALINE PHOSPHATASE 159 40-115 AST 15 10-35 ALT 15 9-46 URINALYSIS, COMPLETE W/REFLEX TO 2018-06-24 CULTURE COLOR YELLOW YELLOW APPEARANCE CLOUDY CLEAR BILIRUBIN NEGATIVE NEGATIVE KETONES NEGATIVE NEGATIVE SPECIFIC GRAVITY 1.009 1.001-1.035 OCCULT BLOOD NEGATIVE NEGATIVE PH 7.0 5.0-8.0 PROTEIN NEGATIVE NEGATIVE NITRITE NEGATIVE NEGATIVE LEUKOCYTE ESTERASE NEGATIVE NEGATIVE WBC NONE SEEN < OR = 5 RBC NONE SEEN < OR = 2 SQUAMOUS EPITHELIAL CELLS NONE SEEN < OR = 5 BACTERIA NONE SEEN NONE SEEN HYALINE CAST NONE SEEN NONE SEEN GLUCOSE TRACE NEGATIVE RPR (DX) W/REFL TITER AND 2018-06-24 CONFIRMATORY TESTING RPR (DX) W/REFL TITER AND NON-REACTIVE NON-RE ACTIVE CONFIRMATORY TESTING PSA, TOTAL 2018-06-24 PSA, TOTAL 1.2 < OR = 4.0 HEPATITIS C AB W/REFL TO HCV RNA, 2018-06-24 QN, PCR HEPATITIS C ANTIBODY NON-REACTIVE NON-REACTIV E SIGNAL TO CUT-OFF 0.03 <1.00 TSH W/REFLEX TO FT4 2018-06-24 TSH W/REFLEX TO FT4 8.37 0.40-4.50 T4, FREE 1.1 0.8-1.8 DRUG TOX MONITORING 9 W/CONF, URINE 2018-06-24 Amphetamines NEGATIVE <500 MDMA/MDA NEGATIVE <500 Barbiturates NEGATIVE <300 Benzodiazepines NEGATIVE <100 Marijuana Metabolite 20 NEGATIVE <20 Cocaine Metabolite NEGATIVE <150 Methadone Metabolite NEGATIVE <100 Opiates NEGATIVE <100 Oxycodone NEGATIVE <100 Buprenorphine POSITIVE <5 Buprenorphine 19 <5 Norbuprenorphine 68 <5 Heroin Metabolite NEGATIVE <10 Phencyclidine NEGATIVE <25 COMMENT DRUG TOX MONITORING ALCOHOL ETHYL, 2018-06-24 W/CONF U Alcohol, Ethyl NEGATIVE <20 COMMENT EXTRA URINE SPECIMEN 2018-06-24 EXTRA URINE SPECIMEN COMMENT Depression Screen PHQ9 Annual 2018-06-17 Depression screen Score DRUG TOX MONITORING 9 W/CONF, URINE 2018-06-10 Amphetamines NEGATIVE <500 MDMA/MDA NEGATIVE <500 Barbiturates NEGATIVE <300 Benzodiazepines NEGATIVE <100 Marijuana Metabolite 20 NEGATIVE <20 Cocaine Metabolite NEGATIVE <150 Methadone Metabolite NEGATIVE <100 Opiates NEGATIVE <100 Oxycodone NEGATIVE <100 Buprenorphine POSITIVE <5 Buprenorphine 95 <5 Norbuprenorphine 135 <5 Heroin Metabolite NEGATIVE <10 Phencyclidine NEGATIVE <25 COMMENT DRUG TOX MONITORING ALCOHOL ETHYL, 2018-06-10 W/CONF U Alcohol, Ethyl NEGATIVE <20 COMMENT FECAL GLOBIN BY IMMUNOCHEMISTRY 2018-06-03 FECAL GLOBIN BY IMMUNOCHEMISTRY DRUG TOX MONITORING 9 W/CONF, URINE 2018-06-03 Amphetamines NEGATIVE <500 MDMA/MDA NEGATIVE <500 Barbiturates NEGATIVE <300 Benzodiazepines NEGATIVE <100 Marijuana Metabolite 20 NEGATIVE <20 Cocaine Metabolite NEGATIVE <150 Methadone Metabolite NEGATIVE <100 Opiates NEGATIVE <100 Oxycodone NEGATIVE <100 Buprenorphine POSITIVE <5 Buprenorphine 7 <5 Norbuprenorphine 77 <5 Heroin Metabolite NEGATIVE <10 Phencyclidine NEGATIVE <25 COMMENT DRUG TOX MONITORING ALCOHOL ETHYL, 2018-06-03 W/CONF U Alcohol, Ethyl NEGATIVE <20 COMMENT DRUG TOX MONITORING 9 W/CONF, URINE 2018-05-27 Amphetamines NEGATIVE <500 MDMA/MDA NEGATIVE <500 Barbiturates NEGATIVE <300 Benzodiazepines NEGATIVE <100 Marijuana Metabolite 20 NEGATIVE <20 Cocaine Metabolite NEGATIVE <150 Methadone Metabolite NEGATIVE <100 Opiates NEGATIVE <100 Oxycodone NEGATIVE <100 Buprenorphine POSITIVE <5 Buprenorphine 54 <5 Norbuprenorphine 274 <5 Heroin Metabolite NEGATIVE <10 Phencyclidine NEGATIVE <25 COMMENT DRUG TOX MONITORING ALCOHOL ETHYL, 2018-05-27 W/CONF U Alcohol, Ethyl NEGATIVE <20 COMMENT BASIC METABOLIC PANEL 2018-05-26 GLUCOSE UREA NITROGEN (BUN) CREATININE eGFR NON-AFR. [place] eGFR BUN/CREATININE RATIO SODIUM POTASSIUM CHLORIDE CARBON DIOXIDE CALCIUM EGFR HEMOGLOBIN A1c HEMOGLOBIN A1c INR INR URINALYSIS, COMPLETE 2018-05-26 COLOR APPEARANCE BILIRUBIN KETONES SPECIFIC GRAVITY OCCULT BLOOD PH PROTEIN NITRITE LEUKOCYTE ESTERASE WBC RBC SQUAMOUS EPITHELIAL CELLS TRANSITIONAL EPITHELIAL RENAL EPITHELIAL CELLS AMORPHOUS SEDIMENT YEAST BACTERIA COMMENTS CRYSTALS CALCIUM OXALATE CRYSTALS TRIPLE PHOSPHATE CRYSTALS URIC ACID CRYSTALS HYALINE CAST GRANULAR CAST CASTS NOTE GLUCOSE REDUCING SUBSTANCES DRUG TOX MONITORING 9 W/CONF, URINE 2018-05-20 Amphetamines NEGATIVE <500 MDMA/MDA NEGATIVE <500 Barbiturates NEGATIVE <300 Benzodiazepines NEGATIVE <100 Marijuana Metabolite 20 NEGATIVE <20 Cocaine Metabolite NEGATIVE <150 Methadone Metabolite NEGATIVE <100 Opiates NEGATIVE <100 Oxycodone NEGATIVE <100 Buprenorphine POSITIVE <5 Buprenorphine 74 <5 Norbuprenorphine 284 <5 Heroin Metabolite NEGATIVE <10 Phencyclidine NEGATIVE <25 COMMENT DRUG TOX MONITORING ALCOHOL ETHYL, 2018-05-20 W/CONF U Alcohol, Ethyl NEGATIVE <20 COMMENT DRUG TOX MONITORING 9 W/CONF, URINE 2018-04-22 Amphetamines NEGATIVE <500 MDMA/MDA NEGATIVE <500 Barbiturates NEGATIVE <300 Benzodiazepines NEGATIVE <100 Marijuana Metabolite 20 NEGATIVE <20 Cocaine Metabolite NEGATIVE <150 Methadone Metabolite NEGATIVE <100 Opiates NEGATIVE <100 Oxycodone NEGATIVE <100 Buprenorphine POSITIVE <5 Buprenorphine 149 <5 Norbuprenorphine 1194 <5 Heroin Metabolite NEGATIVE <10 Phencyclidine NEGATIVE <25 COMMENT DRUG TOX MONITORING ALCOHOL ETHYL, 2018-04-22 W/CONF U Alcohol, Ethyl NEGATIVE <20 COMMENT CBC (H/H, RBC, INDICES, WBC, PLT) 2018-04-15 WHITE BLOOD CELL COUNT 6.3 3.8-10.8 RED BLOOD CELL COUNT 3.90 4.20-5.80 HEMOGLOBIN 12.4 13.2-17.1 HEMATOCRIT 36.1 38.5-50.0 MCV 92.6 80.0-100.0 MCH 31.8 27.0-33.0 MCHC 34.3 32.0-36.0 RDW 13.0 11.0-15.0 PLATELET COUNT 312 140-400 MPV 9.1 7.5-12.5 COMPREHENSIVE METABOLIC PANEL-[facility] 2018-04-15 GLUCOSE 69 65-99 UREA NITROGEN (BUN) 14 7-25 CREATININE 1.28 0.70-1.33 eGFR NON-AFR. [place] 61 > OR = 60 eGFR 71 > OR = 60 BUN/CREATININE RATIO NOT APPLICABLE 6-22 SODIUM 137 135-146 POTASSIUM 4.0 3.5-5.3 CHLORIDE 98 98-110 CARBON DIOXIDE 29 20-31 CALCIUM 9.7 8.6-10.3 PROTEIN, TOTAL 7.8 6.1-8.1 ALBUMIN 4.5 3.6-5.1 GLOBULIN 3.3 1.9-3.7 ALBUMIN/GLOBULIN RATIO 1.4 1.0-2.5 BILIRUBIN, TOTAL 0.5 0.2-1.2 ALKALINE PHOSPHATASE 108 40-115 AST 17 10-35 ALT 19 9-46 CREATINE KINASE, TOTAL 2018-04-15 CREATINE KINASE, TOTAL 119 44-196 TSH W/REFLEX TO FT4 2018-04-15 TSH W/REFLEX TO FT4 1.21 0.40-4.50 DRUG TOX MONITORING 9 W/CONF, URINE 2018-04-15 Amphetamines NEGATIVE <500 MDMA/MDA NEGATIVE <500 Barbiturates NEGATIVE <300 Benzodiazepines NEGATIVE <100 Marijuana Metabolite 20 NEGATIVE <20 Cocaine Metabolite NEGATIVE <150 Methadone Metabolite NEGATIVE <100 Opiates NEGATIVE <100 Oxycodone NEGATIVE <100 Buprenorphine POSITIVE <5 Buprenorphine 5 <5 Norbuprenorphine 107 <5 Heroin Metabolite NEGATIVE <10 Phencyclidine NEGATIVE <25 COMMENT DRUG TOX MONITORING ALCOHOL ETHYL, 2018-04-15 W/CONF U Alcohol, Ethyl POSITIVE <20 Alcohol, Ethyl 41 <20 COMMENT DRUG TOX MONITORING FENTANYL, QN, 2018-04-15 URINE Fentanyl NEGATIVE <0.5 Norfentanyl NEGATIVE <0.5 COMMENT DRUG TOX MONITORING TRAMADOL, QN, 2018-04-15 URINE Tramadol 3800 <100 Desmethyltramadol see note DRUG TOX MONITORING 9 W/CONF, URINE 2018-04-01 Amphetamines NEGATIVE <500 MDMA/MDA NEGATIVE <500 Barbiturates NEGATIVE <300 Benzodiazepines NEGATIVE <100 Marijuana Metabolite 20 NEGATIVE <20 Cocaine Metabolite NEGATIVE <150 Methadone Metabolite NEGATIVE <100 Opiates NEGATIVE <100 Oxycodone NEGATIVE <100 Buprenorphine POSITIVE <5 Buprenorphine 14 <5 Norbuprenorphine 150 <5 Heroin Metabolite NEGATIVE <10 Phencyclidine NEGATIVE <25 COMMENT DRUG TOX MONITORING FENTANYL, QN, 2018-04-01 URINE Fentanyl NEGATIVE <0.5 Norfentanyl NEGATIVE <0.5 COMMENT DRUG TOX MONITORING TRAMADOL, QN, 2018-04-01 URINE Tramadol >5000 <100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
--- OUTSIDE RECORDS SUMMARY | 2022-07-05 20:12 | XMS_ITS | Continuity of Care Document ---
:1960 Author Organization [facility] Address [address] [place] [address]- Care Team Providers Name Role Phone Not on Staff, PCP Primary Care Physician Unavailable Encounter [facility] Date(s): 11/20/19 - 11/27/19 [facility] [address] [place] [address]- [facility] Attending Physician: Acosta Cardenas MD Referring Physician: Not on Staff, Referring MD Allergies, Adverse Reactions, Alerts Substance Reaction Severity Status amoxicillin Active lisinopril Active KlonoPIN Active Medications amLODIPine 2.5 mg oral tablet 5 mg, By Mouth, Daily, # 30 tablet, Refills 0, Tot. Refills 0, Maintenance, 10/23/17 12:32:02, [facility] Electronically, [id number], [facility] Start Date: 10/23/17 [...] Date: 12/06/17 Stop Date: 01/17/18 Status: Ordered Vital Signs Most recent to oldest [Reference Range]: 1 Height 175 cm (11/20/19 1:27 PM) Oxygen Saturation [94-100 %] 97 % (11/20/19 1:27 PM) Pulse Rate [55-90 bpm] 69 bpm (11/20/19 1:27 PM) Blood Pressure [90-138/55-84 mm Hg] 104/54 mm Hg (11/20/19 1:27 PM) Respiratory Rate [16-30 br/min] 18 br/min (11/20/19 1:27 PM) Mode of Delivery (Oxygen) Room air (11/20/19 1:27 PM) Blood pressure sites Arm, right (11/20/19 1:27 PM) Social History Social History Type Response Smoking Status 10 or more cigarettes (1/2 p ack or more)/day in last 30 days entered on: 03/06/19 Sex
--- OUTSIDE RECORDS SUMMARY | 2022-07-05 20:12 | XMS_ITS | Continuity of Care Document ---
:1960 Author Organization [facility] Address [address] [place] [address]- Care Team Providers Name Role Phone Brielle Eid MD Primary Care Physician [phone] [facility] Date(s): 10/08/20 - 11/07/20 [facility] [address] [address] Attending Physician: Jose J Etienne Admitting Physician: AdmtrJose J Referring Physician: Admtr, Ar8 Allergies, Adverse Reactions, Alerts Substance Reaction Severity Status amoxicillin Active lisinopril Active KlonoPIN Active Medications amLODIPine 2.5 mg oral tablet 5 mg, By Mouth, Daily, # 30 tablet, Refills 0, Tot. Refills 0, Maintenance, 10/23/17 12:32:02, [facility] Electronically, [id number], [facility] Start Date: 10/23/17 [...]
--- OUTSIDE RECORDS SUMMARY | 2022-07-05 20:13 | XMS_ITS | Continuity of Care Document ---
:1960 Author Organization [facility] Address [address] [place] [address]- Care Team Providers Name Role Phone Brielle Eid MD Primary Care Physician [phone] Encounter [facility] Date(s): 06/11/20 - 07/11/20 [facility] [address] [address]- [facility] Attending Physician: AdmtrJose J Admitting Physician: Admtr, Jose J Referring Physician: Admtr, Ar8 Allergies, Adverse Reactions, Alerts Substance Reaction Severity Status amoxicillin Active lisinopril Active KlonoPIN Active Medications amLODIPine 2.5 mg oral tablet 5 mg, By Mouth, Daily, # 30 tablet, Refills 0, Tot. Refills 0, Maintenance, 10/23/17 12:32:02, [facility] Electronically, [id number], [facility] Start Date: 10/23/17 Stop [...]
--- OUTSIDE RECORDS SUMMARY | 2022-07-05 20:13 | XMS_ITS | Continuity of Care Document ---
:1960 Author Organization [facility] Address [address] [place] [address]- Care Team Providers Name Role Phone Ragini PLEITEZ, Brielle Simpson Primary Care Physician [id number] - [facility] [address] [address] Attending Physician: Shalini Allen MD Admitting Physician: Shalini Allen MD Referring Physician: Silas PLEITEZ, Nathan Davies Allergies, Adverse Reactions, Alerts Substance Reaction Severity Status amoxicillin Active lisinopril Active KlonoPIN Active Medications amLODIPine 2.5 mg oral tablet 5 mg, By Mouth, Daily, # 30 tablet, Refills 0, Tot. Refills 0, Maintenance, 10/23/17 12:32:02, [facility] Electronically, [id number], [facility] Start Date: 10/23/17 Stop [...]
--- OUTSIDE RECORDS SUMMARY | 2022-07-05 20:13 | XMS_ITS | Continuity of Care Document ---
:1960 Author Organization [facility] Address [address] [place] [address]- Care Team Providers Name Role Phone Brielle Eid MD Primary Care Physician [phone] Encounter [facility] Date(s): 04/03/21 - 05/03/[address] [address] Allergies, Adverse Reactions, Alerts Substance Reaction Severity Status amoxicillin Active lisinopril Active KlonoPIN Active Medications amLODIPine 2.5 mg oral tablet 5 mg, By Mouth, Daily, # 30 tablet, Refills 0, Tot. Refills 0, Maintenance, 10/23/17 12:32:02, [facility] Electronically, [id number], [facility] Start Date: 10/23/17 Stop [...] 1Patient NOS x 2 to scheduled appts.-- [id number] did not keep 3 scheduled appts.-- Closed. Social History Social History Type Response Smoking Status 10 or more cigarettes (1/2 p ack or more)/day in last 30 days entered on: 03/06/19 Sex
--- OUTSIDE RECORDS SUMMARY | 2022-07-05 20:13 | XMS_ITS | Continuity of Care Document ---
:1960 Author Organization [facility] Address [address] [address]- Care Team Providers Name Role Phone Brielle Eid MD Primary Care Physician [phone] [place] [facility] Date(s): 10/21/20 - 11/20/20 [facility] [address] [place] [address]- Allergies, Adverse Reactions, Alerts Substance Reaction Severity Status amoxicillin Active lisinopril Active KlonoPIN Active Medications amLODIPine 2.5 mg oral tablet 5 mg, By Mouth, Daily, # 30 tablet, Refills 0, Tot. Refills 0, Maintenance, 10/23/17 12:32:02, [facility] Electronically, [id number], [facility] Start Date: 10/23/17 Stop [...]
--- OUTSIDE RECORDS SUMMARY | 2022-07-05 20:13 | XMS_ITS | Continuity of Care Document ---
:1960 Author Organization [facility] Address [address] [place] [address]- Care Team Providers Name Role Phone Silas PLEITEZ, Nathan Davies Primary Care Physician Encounter [facility] Date(s): 09/23/21 - 10/23/[address] [address] Attending Physician: AdmtrJose J Admitting Physician: Admtr, Jose J Referring Physician: Admtr, Ar8 Allergies, Adverse Reactions, Alerts Substance Reaction Severity Status amoxicillin Active lisinopril Active KlonoPIN Active Medications amLODIPine 2.5 mg oral tablet 5 mg, By Mouth, Daily, # 30 tablet, Refills 0, Tot. Refills 0, Maintenance, 10/23/17 12:32:02, [facility] Electronically, [id number], [facility] Start Date: 10/23/17 Stop Date: [...] 1Patient NOS x 2 to scheduled appts.-- [id number] did not keep 3 scheduled appts.-- Closed. Social History Social History Type Response Smoking Status 10 or more cigarettes (1/2 p ack or more)/day in last 30 days entered on: 03/06/19 Sex
--- OUTSIDE RECORDS SUMMARY | 2022-07-05 20:13 | XMS_ITS | Continuity of Care Document ---
:1960 Author Organization [facility] Address [address] [place] [address]- Care Team Providers Name Role Phone Brielle Eid MD Primary Care Physician En[place] [facility] Date(s): 05/08/20 - 05/08/[address] [address]- [facility] Discharge Disposition: A-D/C Walkout Attending Physician: Not on Staff, Attending MD Admitting Physician: Not on Staff, Admitting MD Referring Physician: Not on Staff, Referring MD Allergies, Adverse Reactions, Alerts Substance Reaction Severity Status amoxicillin Active lisinopril Active KlonoPIN Active Medications amLODIPine 2.5 mg oral tablet 5 mg, By Mouth, Daily, # 30 tablet, Refills 0, Tot. Refills 0, Maintenance, 10/23/17 12:32:02, [facility] Electronically, [id number], [facility] Start Date: 10/23/17 Stop [...] Most recent to oldest [Reference Range]: 1 2 Height 175 cm (05/08/20 2:08 PM) Weight 71.4 kg (05/08/20 2:08 PM) Oxygen Saturation [94-100 %] 100 % 95 % (05/08/20 2:08 PM) (05/08/20 1:56 PM) Pulse Rate [55-90 bpm] 84 bpm 100 bpm (05/08/20 2:08 PM) *H* (05/08/20 1:56 PM) Body Mass Index [18.5-24.99] 23.31 (05/08/20 2:08 PM) Blood Pressure [90-138/55-84 mm Hg] 128/77 mm Hg (05/08/20 2:08 PM) Respiratory Rate [16-30 br/min] 16 br/min (05/08/20 2:08 PM) Temperature [96.8-100.4 DegF] 98.4 DegF (05/08/20 2:08 PM) Mode of Delivery (Oxygen) Room air Room air (05/08/20 2:08 PM) (05/08/20 1:56 PM) Blood pressure sites Arm, right (05/08/20 2:08 PM) Temperature Route Oral (05/08/20 2:08 PM) Dry Weight 71.4 kg (05/08/20 2:08 PM) Weight Obtained Via Standing scale (05/08/20 2:08 PM) Dry Weight Obtained Via Standing scale (05/08/20 2:08 PM) Social History Social History Type Response Smoking Status 10 or more cigarettes (1/2 p ack or more)/day in last 30 days entered on: 03/06/19 Sex
--- OUTSIDE RECORDS SUMMARY | 2022-07-05 20:13 | XMS_ITS | Continuity of Care Document ---
:1960 Author Organization [facility] Address [address] [place] [address]- Care Team Providers Name Role Phone Brielle Eid MD Primary Care Physician Encounter [facility] Date(s): 05/22/20 - 07/11/20 [facility] [address] [address]- [facility] Attending Physician: Shalini Allen MD Admitting Physician: Shalini Allen MD Referring Physician: Nathan Rosen MD Allergies, Adverse Reactions, Alerts Substance Reaction Severity Status amoxicillin Active lisinopril Active KlonoPIN Active Medications amLODIPine 2.5 mg oral tablet 5 mg, By Mouth, Daily, # 30 tablet, Refills 0, Tot. Refills 0, Maintenance, 10/23/17 12:32:02, [facility] Electronically, [id number], [facility] Start Date: 10/23/17 Stop Date: 11/22/17 [...]
[2022-07-05 20:15] LABS: MANUAL DIFF FLAG NO
[2022-07-05 20:18] LABS: Basophils Percent Auto 0.5 % (0-2); Eosinophils Absolute Auto 0.1 X10*3/uL (0.0-0.4); Hematocrit 34.5 % (42.0-52.0); Hemoglobin 11.9 g/dl (14.0-18.0); Imm Gran Abs Auto 0.02 X10*3/uL (0.00-0.03); Imm Gran Pct Auto 0.4 % (0.0-0.4); Lymphocytes Absolute Auto 1.1 X10*3/uL (1.2-4.9); Lymphocytes Percent Auto 20.1 % (20-40); Mean Corpuscular HGB Conc 34.5 g/dl (31.0-36.0); Mean Corpuscular Hemoglobin 33.2 pg (27.0-33.0); Mean Corpuscular Volume 96.4 fL (80.0-98.0); Mean Platelet Volume 8.5 fL (9.4-12.4); Monocytes Absolute Auto 0.3 X10*3/uL (0.1-1.2); Monocytes Percent Auto 6.2 % (2-11); Neutrophils Absolute Auto 3.9 x10*3/uL (2.0-8.3); Neutrophils Percent Auto 70.8 % (45-73); Platelet Count 198 X10*3/uL (160-400); Red Blood Count 3.58 X10*6/uL (4.60-5.80); Red Cell Distribution Width 12.1 % (11.0-16.0); White Blood Count 5.5 X10*3/uL (4.8-10.8)
[2022-07-05 20:35] LABS: Acetaminophen LAB 8 mcg/mL (<30); Alanine Aminotransferase 12 U/L (0-40); Albumin Level 4.1 g/dL (3.5-5.0); Alkaline Phosphatase 45 U/L (39-117); Anion Gap 17 (12-20); Aspartate Amino Transferase 15 U/L (5-37); Bilirubin Total 0.2 mg/dL (0.0-1.0); Blood Urea Nitrogen 29 mg/dL (9-16); Calcium 9.1 mg/dL (8.4-10.2); Carbon Dioxide 21 mmol/L (22-29); Chloride 103 mmol/L (96-108); Estimated Glomerular Filt Rate 45; Ethanol < 10 mg/dL; Glucose Random 115 mg/dL (60-115); Potassium 3.6 mmol/L (3.3-5.1); Salicylate < 5.0 mg/dL (15-30); Sodium 137 mmol/L (135-145)
[2022-07-05 21:09] LABS: TSH reflex Free T4 1.79 uIU/mL (0.32-4.0)
[2022-07-06 01:42] VITALS: BP 173/87; PULSE 53; RESP 18; TEMP 36.6; O2SAT 97
--- NOTE | 2022-07-06 04:54 | PC.NURSE ---
Patient sleeping he was up few time to used the bathroom, he was encouraged to drink fluids, will continue to monitor.
--- NOTE | 2022-07-06 06:02 | PC.NURSE ---
Patient awake, pleasant, requesting a P&J sandwich plus 2 juice given, he denies any pain or discomfort, reporting he normally drinks a lot water at home. Will continue to monitor.
[2022-07-06] MEDS: LORazepam 1 MG TABLET 2 MG PO (08:08)
--- NOTE | 2022-07-06 09:11 | MHC.CARE ---
CARE Team met with pt for a risk assessment. Pt self presented to the ED with HI. Pt states he was feeling ?unhinged? last night and had multiple stressors in his life that precipitated his most recent presentation. Pt has hx of presenting to the ED for similar presenations with SI/HI and alcohol use. Today, Pt currently does not endorse HI/SI/AH/VH . Patient denies auditory, visual, tactile hallucinations. Pt declines recovery team services. Pt reported to have a girlfriend and a cat as a support at home. Pt reported to need a good night?s sleep in a safe place and is now advocating to return home. Pt provided with [facility] crisis information. Plan reviewed with STEPAN Cerrato and Dr. Jacques
--- NOTE | 2022-07-06 09:15 | MHC.CARE ---
Pt placed on alert with [facility] crisis
== END 2022-07-06 09:38 | disposition home or self-care (01) ==
PROVIDERS: Physician Assistant; Emergency Provider Internal Medicine
DX: F33.1 Major depressive disorder, recurrent, moderate (principal); R45.851 Suicidal ideations; R45.850 Homicidal ideations; M54.2 Cervicalgia; R51.9 Headache, unspecified; Z79.899 Other long term (current) drug therapy; Z20.822 Contact with and (suspected) exposure to COVID-19
CPT/HCPCS: 36415; 70450; 72125; 80053; 80143; 80179; 80307; 81003; 82077; 83735; 84443; 85025; 87635; 99284

== ENCOUNTER 2022-10-06 23:44 | Emergency (ER) | payer MEDICAID, SELFPAY ==
[2022-10-06 23:57] VITALS: BP 170/98; PULSE 90; O2SAT 98; BMI 20.7
[2022-10-07 00:02] VITALS: BP 153/67; PULSE 74; RESP 19; TEMP 36.9; O2SAT 95
--- NOTE | 2022-10-07 00:16 | ED.OVERDOSE ---
HPI - Overdose General Chief Complaint: Overdose Stated Complaint: overdose Time Seen by Provider: 10/06/22 23:49 Source: patient and EMS Mode of arrival: EMS Limitations: no limitations History of Present Illness HPI Narrative: 61-year-old male who presents emergency department for evaluation of an opiate overdose. The patient states that he used a bag of dope. States that he snorted the drug. He then passed out and was found on the sidewalk by bystanders. First responders were the police and they gave him 4 doses of intranasal Narcan with only minimal response. Paramedics gave the patient 2 mg of intranasal Narcan by the time they arrived in the emergency department the patient was awake and alert and agitated. The patient told me that he uses heroin infrequently. He states that he is on Suboxone mainly for pain. 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 The patient states that he does not want to be here in the emergency department, he does not want crisis counseling and he does not want any testing. Related Data Home Medications Medication Instructions Recorded Confirmed folic acid 1 mg tablet 1 mg PO DAILY 08/28/20 07/05/22 amlodipine 10 mg tablet 1 tab PO DAILY 11/27/21 07/05/22 atorvastatin 20 mg tablet 1 tab PO DAILY 11/27/21 07/05/22 levothyroxine 25 mcg tablet 1 tab PO DAILY 11/27/21 07/05/22 acamprosate 333 mg tablet,delayed 2 tab PO TID 11/28/21 07/05/22 release buprenorphine 8 mg-naloxone 2 mg 1 strip sublingual BID 11/28/21 07/05/22 sublingual film (Suboxone) clonidine HCl 0.1 mg tablet 1 tab PO BID 11/28/21 07/05/22 gabapentin 800 mg tablet 1 tab PO TID 11/28/21 07/05/22 nicotine 21 mg/24 hr daily 1 patch topical DAILY 11/28/21 07/05/22 transdermal patch thiamine HCl (vitamin B1) 100 mg 1 tab PO DAILY 11/28/21 07/05/22 tablet (Vitamin B-1) trazodone 50 mg tablet 1 tab PO BEDTIME 11/28/21 07/05/22 Allergies Allergy/AdvReac Type Severity Reaction Status Date / Time lisinopril [LISINOPRIL] Allergy Unknown SWELLING Verified 03/09/21 14:13 [facility] Past Medical History [facility] Narrative: past medical history: Reviewed below, he has history of depression, suicidal ideation in the past, alcohol use disorder and opiate use disorder. Medical History Broken hip Depression Hypertension Social History Social History Alcohol intake: current Alcohol intake frequency: 3 or more drinks per day Alcohol type: hard liquor Substance Use Type: Crack/Cocaine Advance Directives: No Advance Directives Information Provided: No Physical Exam Vital Signs: Vital Signs: Last Vital Signs Temp 98.4 F 10/07/22 00:02 Pulse 74 10/07/22 00:02 Resp 19 10/07/22 00:02 BP 153/67 H 10/07/22 00:02 Pulse Ox 95 10/07/22 00:02 O2 Del Method 10/07/22 00:02 BMI result Body Mass Index 20.7 General: Awake, alert male patient, he is agitated, he is uncooperative, he is disheveled but is fully dressed neuro: Patient is awake, alert, he is oriented to person and place, he understands why he is here in the emergency department. He is able to walk around in the emergency department without any difficulty and his neurologic exam appears to be nonfocal. Medical Decision Making Medical Decision Making [facility] Narrative: 61-year-old male who presents emergency department for evaluation of unintentional overdose with opiates that he used intranasally. He states that he used 1 bag. He is in a Suboxone clinic but he states that this is mainly for pain not for opiate addiction. Patient required 10 mg of intranasal Narcan in order to revive him. I told the patient that he needs to be observed for least 2-4 hours to make sure that he does not have any further effects from the opiates that he used. Patient understood this discussion but does not want any further treatment and wants to leave against medical advice. He is aware that if he was exposed to a long-acting narcotic that this medication could kick in again and he could stop breathing and . Despite this risk he still wants to leave against medical advice. He does not want to stay for a SUDE exam or for crisis counseling either. He does not want any Intranasal Narcan to go home with since he states that he has multiple doses of this at home. Differential Diagnosis differential diagnosis includes was not limited to opiate overdose, alcohol intoxication, polysubstance use Discharge Plan Discharge Clinical Impression: Drug overdose Patient Disposition: Left Against Medical Advice Additional Instructions: You overdosed on opiates this evening. My recommendation was to keep you in the emergency department so that we could watch you for at least 2 hours to make sure that you do not pass out again from the opiate that you overdosed on. You understood the risks of leaving against medical advice which includes dying from the opiate that you took. Despite this risk, you still want to leave against medical advice. I offered to give you intranasal Narcan to take home with you but you told me that you have multiple doses of this at home. If your going to use opiates again in the future you should make sure that there is someone was not using drugs with you who can give you intranasal Narcan and save your life. You should discuss this overdose with your provider that gives you Suboxone so that you can get help and counseling with your opiate use disorder. Follow-up with your doctor in 2 days. Please return to the emergency department if your symptoms get worse or if you develop any symptoms that are concerning to you. Prescriptions: No Action folic acid 1 mg Tablet 1 mg PO DAILY atorvastatin 20 mg tablet 1 tab PO DAILY levothyroxine 25 mcg tablet 1 tab PO DAILY amlodipine 10 mg tablet 1 tab PO DAILY acamprosate 333 mg tablet,delayed release (DR/EC) 2 tab PO TID trazodone 50 mg tablet 1 tab PO BEDTIME buprenorphine-naloxone [Suboxone] 8-2 mg film 1 strip sublingual BID nicotine 21 mg/24 hr patch 24 hour 1 patch topical DAILY clonidine HCl 0.1 mg tablet 1 tab PO BID gabapentin 800 mg tablet 1 tab PO TID thiamine HCl (vitamin B1) [Vitamin B-1] 100 mg tablet 1 tab PO DAILY Stand Alone Forms: Against Medical Advice
--- NOTE | 2022-10-07 00:24 | PC.NURSE ---
pt a&o, no sign of distress, pt refusing to exchange administrator or stay. Provider aware and assess patient. Pt leaving against medical advice.
--- NOTE | 2022-10-07 00:31 | PC.NURSE ---
Pt OLSEN x 4 refusing to answer questions continued to refuse care. Pt speaking in full sentences and ambulatory.. Pt signed AMA form before leaving ED.
== END 2022-10-07 00:34 | disposition left against medical advice (07) ==
PROVIDERS: Emergency Provider Emergency Medicine Emergency Medical Services
DX: R40.4 Transient alteration of awareness (principal); T40.2X1A Poisoning by other opioids, accidental (unintentional), initial encounter; Y92.480 Sidewalk as the place of occurrence of the external cause; F11.20 Opioid dependence, uncomplicated; I10 Essential (primary) hypertension; F32.A Depression, unspecified; Z79.02 Long term (current) use of antithrombotics/antiplatelets; Z79.899 Other long term (current) drug therapy
CPT/HCPCS: 99284